=== PATIENT | female | born 1940 | race Caucasian/White ===

== ENCOUNTER 2018-01-16 08:30 | Emergency (ER) | payer MEDICARE, SELFPAY ==
[2018-01-16 08:31] VITALS: BP 157/85; PULSE 99; RESP 15; TEMP 36.4; BMI 29.0
--- NOTE | 2018-01-16 08:49 | EKG12_ITS ---
Test Reason : UPPER EXTREMETIY Blood Pressure : / mmHG Vent. Rate : 069 BPM Atrial Rate : 069 BPM P-R Int : 150 ms QRS Dur : 086 ms QT Int : 392 ms P-R-T Axes : 060 -27 031 degrees QTc Int : 420 ms Normal sinus rhythm Normal ECG Confirmed by ROBBY GASTELUM ([id number]), science editor MISHA GOLDMAN ([id number]) on 01/20/2018 4:03:43 PM Referred By: ELEAZAR Confirmed By:ROBBY GASTELUM
--- NOTE | 2018-01-16 08:49 | RAD_ITS ---
STUDY: X-RAY - LEFT HUMERUS REASON FOR EXAM: Female, 77 years old. Chest pain and left arm pain. No known injury. TECHNIQUE: 2 view(s) of the humerus. COMPARISON: None. FINDINGS: Alignment is anatomic. There is no acute fracture lucency or cortical step-off. There is no periostitis or periosteal reaction. There is no plain film evident soft tissue mass. There is mild, multifocal osteoarthritis. Mineralization otherwise appears unremarkable for age. RAD/Humerus min 2 Views IMPRESSION: There is no plain film evident acute osseous abnormality. Mild multifocal osteoarthritis. Electronically Signed: Cb Monson MD at 9:48 EDT , Service support ,
--- NOTE | 2018-01-16 08:49 | RAD_ITS ---
STUDY: X-RAY CHEST REASON FOR EXAM: Female, 77 years old. Chest pain and left arm pain. No known injury. TECHNIQUE: Frontal and lateral views of the chest. COMPARISON: None. FINDINGS: The lungs are clear and expanded. There is no demonstrated pleural abnormality. Normal size heart. Normal mediastinum and arun. Normal visualized pulmonary arteries. Normal visualized aortic arch and descending thoracic aorta. No significant degenerative change. No acute osseous abnormality. The patient is status post thoracolumbar fusion with pedicle screws and posterior rods. This fusion is only partially imaged on this chest exam. Normal visualized ribs, clavicles, and shoulders. There is no demonstrated abnormality of the visualized soft tissue structures of the upper abdomen. RAD/Chest PA and Lateral IMPRESSION: There is no radiographically evident acute cardiopulmonary disease. Electronically Signed: Cb Monson MD at 9:47 EDT , Service support ,
[2018-01-16 09:43] LABS: Absolute Lymphocyte Count 1.06 X10^3/ul (0.83-4.51); Absolute Neutrophil Count 4.3 X10^3/uL (2.0-7.7); Basophil# 0.03 X10^3/uL; Basophil% 0.5 % (0-1); Eosinophil# 0.04 X10^3/uL; Eosinophils% 0.7 % (0-5); Hemoglobin 14.1 g/dl (12.0-15.0); Lymphocyte # 1.06 X10^3/ul (4.0); Lymphocyte % 18.3 % (19-41); Mean Corp Hgb Conc 32.8 g/gl (32-36); Mean Corpuscular Hgb 29.7 pg (27.0-32.0); Mean Corpuscular Volume 90.5 fL (81-99); Mean Platelet Vol. 9.9 fl (6.2-12.0); Monocyte# 0.38 X10^3/uL; Monocyte% 6.6 % (0-10); Neutrophil # 4.29 X10^3/uL (2.7-7.7); Neutrophil % 73.9 % (47-70); Platelet Count 256 K/mm3 (150-450); RBC Distribution Width CV 14.6 % (11.6-14.6); RBC Distribution Width SD 47.9 fl (35.1-43.9); Red Blood Count 4.75 M/mm3 (4.2-5.4); White Blood Count 5.8 K/mm3 (4.4-11.0)
[2018-01-16 09:44] LABS: POSITIVE COUNT NO; POSITIVE DIFFERENTIAL NO; POSITIVE MORPHOLOGY NO
[2018-01-16 09:46] LABS: Anion Gap 4 (5-15); BUN 22 mg/dL (7-18); BUN/Creat Ratio 23.9 RATIO (10-20); Calcium,Total 9.1 mg/dL (8.5-10.1); Chloride 106 mmol/L (98-107); Creatinine, Serum 0.92 mg/dL (0.55-1.02); EST Glomerular Filtration Rate 63 mL/min (>60); Est Glom Filt Rate - Afr Amer 76 mL/min (>60); Estimated Creatinine Clearance 39.86 ml/min; Glucose 101 mg/dL (74-106); Potassium 3.5 mmol/L (3.5-5.1); Sodium Level 141 mmol/L (136-145)
--- NOTE | 2018-01-16 10:05 | ED.DCSUM_ITS ---
- ER Visit Summary Date of Service: 01/16/18 Chief Complaint: Left arm pain History of Present Illness: The patient is a 77 F who complains of left arm pain. This is been constant for 2 days. When asked to describe the characteristics as sharp dull or aching she stated all of the above. She currently rates her pain is 8 out of 10. It is worsened slightly by palpation and movement. She has had relief with aspirin. She denies any paresthesias weakness or loss of function. No history of fall or injury. She denies any chest pain shortness of breath nausea vomiting fevers or chills. Physical Examination: Afebrile vitals are normal No distress Heart regular rate and rhythm Lungs are clear Abdomen soft Patient has some mild reproducible tenderness over the lateral left upper arm this is also somewhat reproduced with movement I do not appreciate any obvious abnormality on inspection I do not appreciate any rash or bruising no deformity Easily palpable radial pulses No extremity edema or erythema Test Results: EKG shows normal sinus rhythm at a rate of 69. CBC BMP troponin unremarkable. Chest x-ray shows no acute process. Humerus x-ray shows mild multifocal arthritis otherwise unremarkable. Emergency Department Course and Treatment: Patient resting comfortably. Clinical suspicion for this being related to a cardiac etiology is very low however this is her concern and she is anxious about this. Her workup for this is unremarkable with a normal EKG and negative cardiac enzymes with 2 days of left arm pain and she does not have associated chest pain or shortness of breath. She does have some reproducible component to her pain. She was advised to continue anti-inflammatories and follow-up with her primary care physician. Treatment Plan: [] Disposition: Discharge Impression: Left arm pain This note was generated with [employer] dictation software. It may contain incorrect words, spelling, and punctuation that were not noted in review of the chart prior to signing ED Disposition - Plan for ED Patient: Chief Complaint: Upper Extremity Injury Referrals: Jillian Canada DO [Primary Care Provider] -
--- NOTE | 2018-01-16 10:05 | ED.DEP ---
ED Disposition - Plan for ED Patient: Chief Complaint: Upper Extremity Injury Instructions: ED Muscle Aching Referrals: Jillian Canada DO [Primary Care Provider] -
[2018-01-16 10:24] VITALS: BP 138/72; PULSE 71; RESP 18; O2SAT 98
== END 2018-01-16 10:25 | disposition home or self-care (01) ==
LOC: ED 09:15
PROVIDERS: Emergency Provider Emergency Medicine; Family Provider Internal Medicine; PCP Internal Medicine
DX: M79.602 Pain in left arm (principal); M19.012 Primary osteoarthritis, left shoulder; Z87.19 Personal history of other diseases of the digestive system
CPT/HCPCS: 71046; 73060; 80048; 84484; 85025; 93005; 99284; A4216

== ENCOUNTER → 2018-06-23 10:06 | Outpatient (CLI) | payer MEDICARE, SELFPAY ==
--- NOTE | 2018-06-23 10:08 | RAD_ITS ---
STUDY: X-RAY - PELVIS AND RIGHT HIP REASON FOR EXAM: Female, 77 years old. Hip pain. TECHNIQUE: Radiological exam, hip, unilateral, with pelvis when performed; 2 or 3 views. COMPARISON: None. FINDINGS: There is a non-specific bowel gas pattern. Radiopaque suture line at the base of the cecum consistent with prior appendectomy. There are multiple calcified phleboliths. There are multilevel degenerative changes of the visualized lumbar spine. Patient has undergone prior posterior spinal fusion with bilateral transpedicular screws L2-L4 connected on either side to longitudinal metal rods, as well as osseous fusion of the posterior elements L2-S1. There is mild narrowing and cortical sclerosis of the lateral sacroiliac joints, suggesting degenerative osteoarthritic changes. Normal visualized iliac wings and sacrum. Normal bilateral superior and inferior pubic rami. There are mild degenerative changes of the pubic symphysis with articular narrowing and sclerosis. Normal bilateral ischial tuberosities. There are osteoarthritic changes of the femoral head with marginal osteophyte formation. Cortical spurring also seen along the greater trochanter. There is osteoarthritic spur formation of the acetabular rim. There is mild articular joint space narrowing of the hip. There is no demonstrated acute fracture or osseous destructive lesion. RAD/HIP, UNI W/ Pelvis 2-3 Views IMPRESSION: 1. Degenerative changes of the lumbar spine, pelvis, and right hip, as described. 2. No acute fracture or osseous destructive lesion of the right hip. 3. Prior posterior fusion of the lumbar spine, with metal hardware noted L2-L4. Electronically Signed: Ernesto Dallas MD at 19:54 EDT , Service support ,
== END ==
PROVIDERS: Family Provider Internal Medicine; PCP Internal Medicine; Referring Provider Nurse Practitioner; Visit Provider Nurse Practitioner
DX: M25.551 Pain in right hip (principal)
CPT/HCPCS: 73502; 97161

== ENCOUNTER 2018-07-15 12:00 | Outpatient (RCR) | payer MEDICARE, SELFPAY ==
--- NOTE | 2018-06-23 15:31 | HP.PTEVAL ---
Patient's Visit Information DUANE EDUARDO is a 77 year old F referred to Physical Therapy by Noemy Benson with a diagnosis of Hip pain. Date of Evaluation: 06/23/18 Physical Therapist: Veda Allan - Visit Plan Frequency: 2x /Week Duration: 4 Weeks Plan: 2X/ week for 4 weeks for nerve root stretches, hip and LE strengthening, gait training, stretching with HEP and modalities PRN - Subjective Subjective: Pt reports that she was 39 and she had L234 fused and in June 3 years ago had rods and screws place in back. Her R hip has been bothering her and now waking her up every hour. She goes from the couch to the bed. She can not sleep on the R side. She sleeps with a pillow bwtween her knees. It hurts all the time. It gradually came on but now Advil wont even help it. She had an x-ray of the hip and back today. Every now and then she has some numbness along the lateral side of her thigh. No weakness on R side to speak of. Stairs: hurts going up and down stairs. Sit to stand: able without using her arms. Up until the last 2 weeks she could move really well. - Pain R hip pain Pain Intensity (Out of 10): 10 - Objective Gait: normal gait pattern. LE MMT: R hip flex 3-/5 and L 4-/5, R hip abd 3-/4 and L 4-/5, R hip extension 2-/5 and L 3-/5, B leg extension 4/5, B knee flexion 4-/5. +R nerve root stretch for pain (+SLUMP TEST R). Pt has some increase pain with heel and toe walking. Pt has tight HS B and Has + SLR test B for pain on the R hip. Pt has really tight and painful R piriformis - Goals Goal 1:: I HEP Goal Time Frame: 2-4 Weeks Goal 2:: Decrease R hip pain to 2/10 with ADL's Goal Time Frame: 2-4 Weeks Goal 3:: Increase R hip strength by 1/2 muscle grade (At time of eval: LE MMT: R hip flex 3-/5 and L 4-/5, R hip abd 3-/4 and L 4-/5, R hip extension 2-/5 and L 3-/5, B leg extension 4/5, B knee flexion 4-/5) Goal Time Frame: 4-6 Weeks Goal 4:: Abolish pain with LAQ nerve root stretch Goal Time Frame: 2-4 Weeks - Rehabilitation Potential Rehabilitation Potential: Good - Anticipated Interventions Patient/Client Instruction: Educate patient on: Condition, Plan of Care For the Purpose of:: To decrease pain, To increase ROM, To improve nutrient delivery to tissue, To improve muscle performance and motor function, To improve ability to perform ADL's, To increase tolerance to activity/condition/position, To improve performance and independence with ADL's, To improve health of tissue, To decrease soft tissue restriction, To increase flexibility/ROM Therapeutic Exercise to Include: Strength training, Postural training, Flexibilty training, Passive ROM, Active ROM, Dynamic Lumbar Stabilization For the Purpose of:: To decrease pain, To decrease swelling/inflammation, To increase ROM, To improve nutrient delivery to tissue, To improve muscle performance and motor function, To improve ability to perform ADL's, To increase tolerance to activity/condition/position, To improve performance and independence with ADL's, To improve gait and locomotor functions, To improve health of tissue, To decrease soft tissue restriction, To increase flexibility/ROM IF ES: Yes Cryotherapy (ice pack, ice massage): Yes Thermo therapy (hot pack): Yes Ultrasound (thermal/non thermal): Yes For the Purpose of:: To decrease pain, To decrease swelling/inflammation, To improve nutrient delivery to tissue Thank you for the opportunity to evaluate your patient. For Medicare and Medicare HMO plans, please review the plan of care and approve it. It will need to be FAXED BACK to us at [phone] for Medicare purposes. Please let me know if there are questions or concerns regarding this plan of care. Physician Signature: Date:
--- NOTE | 2018-07-15 13:01 | HP.PTDCSUM_ITS ---
HP - PT D/C Summary It has been my pleasure to treat DUANE EDUARDO under orders from Noemy Benson NP, for the diagnosis of Hip pain for a total of 6 visit(s). Discharge Date: 07/15/18 Please see the following information for a summary of their discharge status. - Subjective Subjective: Pt reports that her hip is bothering her today and she started to add the piriformis stretches back in at home. She reports that she has started to make it a habit to exercise at home now but would like to join [employer]. - Pain R hip pain Pain Intensity (Out of 10): 0 - Overall Improvement % Improvement: 50 - Objective Objective/Function: No pain with nerce root stretch. Pt is I HEP. LE MMT: pt is still working on improving this.... - Goals Goal 1:: I HEP Goal Progress: Goal Met Goal 2:: Decrease R hip pain to 2/10 with ADL's Goal Progress: Goal Met Goal 3:: Increase R hip strength by 1/2 muscle grade (At time of eval: LE MMT: R hip flex 3-/5 and L 4-/5, R hip abd 3-/4 and L 4-/5, R hip extension 2-/5 and L 3-/5, B leg extension 4/5, B knee flexion 4-/5) Goal Progress: Progressing Goal 4:: Abolish pain with LAQ nerve root stretch Goal Progress: Goal Met - Plan Plan: Pt will start a [employer] sne[employer] plan and will also continue with her exercises at home. She will be discharged at this time. - D/C Information Discharge Comments: DC PT to [facility] If there are questions or concerns regarding this patient's physical therapy, please feel free to call me at [phone]. Thank you for the referral of this patient. Sincerely, Veda Allan
== END 2018-07-15 18:16 | disposition home or self-care (01) ==
LOC: PT 12:00
PROVIDERS: Family Provider Internal Medicine; PCP Internal Medicine; Referring Provider Nurse Practitioner; Visit Provider Nurse Practitioner
DX: M25.559 Pain in unspecified hip (principal)
CPT/HCPCS: 97110; 97161; 97530

== ENCOUNTER → 2018-09-24 09:28 | Outpatient (CLI) | payer MEDICARE, SELFPAY ==
--- NOTE | 2018-09-24 09:45 | RAD_ITS ---
STUDY: X-RAY - RIGHT KNEE REASON FOR EXAM: Female, 78 years old. TECHNIQUE: 4 view(s) of the knee. COMPARISON: March 02, 2017 FINDINGS: Moderate osteoarthritis of the knee demonstrated by narrowing of the medial compartment and spurs from the tibial and femoral condyles and also from the margins of the patella. There are no acute fractures and no knee joint effusion. The quadriceps and patellar tendons are normal.. RAD/Knee 4 or More Views IMPRESSION: Moderate osteoarthritis of the right knee. No fracture Electronically Signed: Agapito Ruiz MD at 7:24 EST Tel , Service support ,
== END ==
PROVIDERS: Family Provider Internal Medicine; PCP Nurse Practitioner Gerontology; Visit Provider Nurse Practitioner Gerontology
DX: M25.561 Pain in right knee (principal)
CPT/HCPCS: 73564

== ENCOUNTER → 2018-12-02 08:46 | Outpatient (CLI) | payer MEDICARE, SELFPAY ==
[2018-12-02 10:34] LABS: EST Glomerular Filtration Rate 64 mL/min (>60); Est Glom Filt Rate - Afr Amer 78 mL/min (>60)
== END ==
PROVIDERS: Family Provider Internal Medicine; PCP Internal Medicine; Referring Provider Physician Assistant; Visit Provider Physician Assistant
DX: M54.16 Radiculopathy, lumbar region (principal)
CPT/HCPCS: 36415; 82565

== ENCOUNTER 2019-06-13 08:56 | Emergency (ER) | payer MEDICARE, SELFPAY ==
[2019-06-13 08:56] VITALS: BP 161/77; PULSE 70; RESP 16; TEMP 36.6; O2SAT 98; BMI 28.3
[2019-06-13 09:12] VITALS: BP 161/77; PULSE 70; RESP 16; TEMP 36.6; O2SAT 98
--- NOTE | 2019-06-13 09:19 | EKG12_ITS ---
Test Reason : Blood Pressure : / mmHG Vent. Rate : 065 BPM Atrial Rate : 065 BPM P-R Int : 156 ms QRS Dur : 086 ms QT Int : 402 ms P-R-T Axes : 034 -26 032 degrees QTc Int : 418 ms Normal sinus rhythm Normal ECG Confirmed by ANA CRAFT, PORTER ([id number]), film and video editor AILEEN LANGE ([id number]) on 06/14/2019 9:05:34 AM Referred By: AMADOU Confirmed By:PORTER PEREZ MD
--- NOTE | 2019-06-13 09:25 | ED.VIS.GEN ---
History of Present Illness Informant: Patient, Family Onset: Weeks - 1 Context: Gradual Onset Timing: Waxes and wanes Current Severity: Moderate Maximum Severity: Moderate Worsened by: FOOD Relieved by: GLUTEN Narrative: Nausea and loose stool Prior similar symptoms: Yes Recent Illness/Hospitalization: No <Suma Dejesus - Last Filed: 06/13/19 11:06> <Aga Charles - Last Filed: 06/13/19 16:04> Chief Complaint: Abd Pain Past Medical History Prior records reviewed: Yes Surgical History: appendectomy, - - SPINE Lives: Spouse/ Significant Other Smoking Status: Never smoker Alcohol: None Drugs: None - Family History Maternal Family History: Reports: - - natural Sibling Family History: Reports: - - sister with a tumor in her back. <Suma Dejesus - Last Filed: 06/13/19 11:06> <Aga Charles - Last Filed: 06/13/19 16:04> - Allergies and Home Meds Allergies/Adverse Reactions: Allergies gluten Allergy (Verified 06/13/19 08:56) Diarrhea Primary Care Physician: Jillian Canada DO [Primary Care Provider] - Review of Systems All systems negative except as indicated General: Denies: Chills, Fever Eyes: Denies: Visual changes - left, Blurred vision - left ENT: Denies: Rhinorrhea, Sore throat Cardiovascular: Denies: Chest pain, Palpitations, Heart racing Respiratory: Denies: Dyspnea, Cough, Sputum Gastrointestinal: Reports: Abdominal pain, Nausea, Diarrhea. Denies: Vomiting, Constipation, Melena, Hematochezia Genitourinary: Reports: Frequency. Denies: Dysuria, Hematuria Musculoskeletal: Reports: Back pain - between shoulder blades. Denies: Myalgias Skin: Denies: Rash Neurological: Reports: Headache. Denies: Weakness, Parasthesia - mild headache Endocrine: Reports: Polyuria <Suma Dejesus - Last Filed: 06/13/19 11:06> Physical Exam Vital Signs/Narrative: Vital Signs Temp Pulse Resp BP Pulse Ox 06/13/19 09:12 97.9 F 70 16 161/77 H 98 06/13/19 08:56 97.9 F 70 16 161/77 H 98 Inital Vital Signs reviewed: Yes General: Well nourished, Well developed Head: Normocephalic, Atraumatic Eyes: Perrl, EOMI. Negative for: Pale conjunctiva ENT: Moist mucous membranes, No rhinorrhea Cardiovascular: Regular rate, Regular rhythm, No murmurs Respiratory: No distress, CTA bilaterally, Chest nontender Abdomen: Soft, Tender. Negative for: Guarding, Rebound tenderness, Pulsatile mass, Ventral hernia, Inguinal hernia, Umbilical hernia, Rovsig's sign, Mora's sign Back: Nontender, Normal Inspection - Well-healed surgical scar. Negative for: CVA tenderness Extremities: Nontender, No edema. Negative for: Tenderness Skin: Normal color, No rash Neurological: Alert, Oriented x3 Psychological: Normal affect, Normal Mood <Suma Dejesus - Last Filed: 06/13/19 11:06> Diagnostic/Tx/Re-eval - Rhythm Strip Ectopy: None - EKG Initial EKG Interpretation: Sinus Rhythm, No Acute Injury Pattern, - - Normal sinus rhythm Ventricular rate 65 FL interval 156 QRS duration 86 QT/QTc 402/4 1 8 No acute STEMI or ectopy - Medical Decision Making Clear was hydrated with IV fluids and laboratory tests were evaluated. She had no signs of infection or pancreatitis or abnormal liver function tests are abnormal kidney function. Her urinalysis was unremarkable. She remained stable and her pain was gradually improving. She was given Pepcid for discomfort. Her abdomen remains soft without guarding or rebound tenderness. She had minimal epigastric tenderness. There is no Mora sign. She relayed to me that she ran out of her enzymes that she usually takes before eating about a week ago. This may have also contributed to her abdominal discomfort as well as eating gluten. She is comfortable discharge home. She remained hemodynamically stable and nontoxic in appearance. She understands return for worsening symptoms or fever. She was discharged in stable condition. <Suma Dejesus - Last Filed: 06/13/19 11:06> - Medical Decision Making I independently evaluated the patient. 78-year-old female presents with abdominal pain. She has a history of gluten sensitivity and pancreatitis. She states her symptoms are starting to improve but she was concerned that she may need her pancreas checked. Lab work is unremarkable. On reevaluation, she is feeling improved. She is advised to follow-up with her primary care physician. Advised return to the ED for worsening complaints. <Aga Charles - Last Filed: 06/13/19 16:04> ED Disposition <Suma Dejesus - Last Filed: 06/13/19 11:06> <Aga Charles - Last Filed: 06/13/19 16:04> - Plan for ED Patient: Disposition: Home or Assisted Living Diagnosis: Gluten enteropathy Instructions: ABDOMINAL PAIN, Unknown Cause, (Female) Referrals: Jillian Canada DO [Primary Care Provider] -
[2019-06-13 09:34] LABS: Bacteria 0 SEEN /hpf (None Seen); Mucous, Urine 0 SEEN /hpf (<or=2+); Red Blood Cells-Urine 0 SEEN /hpf (0-5); White Blood Cells 0 SEEN /hpf (0-5)
[2019-06-13] MEDS: 0.9% Normal Saline 1,000 ML 500 ML IV (09:34)
[2019-06-13 09:36] LABS: Absolute Lymphocyte Count 1.67 X10^3/uL (0.83-4.51); Absolute Neutrophil Count 8.2 X10^3/uL (2.0-7.7); Basophil# 0.06 X10^3/uL; Basophil% 0.5 % (0-1); Eosinophil# 0.21 X10^3/uL; Eosinophils% 1.9 % (0-5); Hematocrit 45.3 % (37-47); Hemoglobin 14.3 g/dL (12.0-15.0); Lymphocyte # 1.67 X10^3/ul (4.0); Lymphocyte % 15.1 % (19-41); Mean Corp Hgb Conc 31.6 g/dL (32-36); Mean Corpuscular Hgb 28.8 pg (27.0-32.0); Mean Corpuscular Volume 91.3 fL (81-99); Mean Platelet Vol. 9.8 fl (6.2-12.0); Monocyte# 0.83 X10^3/uL; Monocyte% 7.5 % (0-10); NRBC Flagged by Analyzer 0 % (0-5); Neutrophil # 8.23 X10^3/uL (2.7-7.7); Neutrophil % 74.7 % (47-70); Platelet Count 309 K/mm3 (150-450); RBC Distribution Width CV 14.2 % (11.6-14.6); RBC Distribution Width SD 47.8 fl (35.1-43.9); Red Blood Count 4.96 M/mm3 (4.2-5.4)
[2019-06-13 09:37] LABS: Color, Urine Yellow (Yellow); Glucose, Dipstick Normal (Normal); Ketone-Dipstick Negative (Negative); Leukocyte Esterase-Dipstick 25 /ul (Negative); Nitrite-Dipstick Negative (Negative); Occult Blood-Urine Negative /ul (Negative); Protein-Dipstick Negative (Negative); Urine Bilirubin Dipstick Negative (Negative); Urine Clarity Clear (Clear); Urine Urobilinogen Normal (Normal); Urine pH 6.5 (5.0 - 8.0)
[2019-06-13 09:43] LABS: Squamous Epithelial Cells - UA 0-5 SEEN /hpf (5-10)
[2019-06-13 09:44] LABS: ALB/GLOB Ratio 1.2 RATIO (0.9-2.4); AST(SGOT) 18 U/L (15-37); Alanine Aminotransfer ALT/SGPT 22 U/L (13-56); Albumin, Serum 4.2 g/dL (3.2-5.0); Alkaline Phosphatase 105 U/L (45-117); Anion Gap 2 (5-15); BUN 25 mg/dL (7-18); BUN/Creat Ratio 25.7 RATIO (10-20); Calcium,Total 9.6 mg/dL (8.5-10.1); Chloride 104 mmol/L (98-107); Creatinine, Serum 0.97 mg/dL (0.55-1.02); EST Glomerular Filtration Rate 59 mL/min (>60); Est Glom Filt Rate - Afr Amer 71 mL/min (>60); Estimated Creatinine Clearance 37.19 ml/min; Globulin 3.6 g/dL (2.2-4.2); Glucose 99 mg/dL (74-106); Lipase 167 U/L (73-393); Potassium 3.8 mmol/L (3.5-5.1); Protein, Total 7.8 g/dL (6.4-8.2); Sodium Level 138 mmol/L (136-145)
[2019-06-13 10:00] VITALS: BP 158/77; PULSE 76; RESP 18; TEMP 37.1; O2SAT 99
[2019-06-13 11:00] VITALS: BP 148/72; PULSE 78; RESP 18; TEMP 37.1; O2SAT 99
[2019-06-13 11:22] VITALS: BP 153/72; PULSE 65; RESP 16; O2SAT 98
--- NOTE | 2019-06-13 11:22 | ED.RN ---
IV DC'ED, CATHETER INTACT, SMALL GAUZE DRESSING PLACED. DISCHARGE INSTRUCTIONS GIVEN TO AND REVIEWED WITH PATIENT, PATIENT DENIES QUESTIONS OR CONCERNS AND VOICES UNDERSTANDING OF DISCHARGE INSTRUCTIONS. PT AMBULATES OUT OF ROOM WITHOUT DIFFICULTY.
== END 2019-06-13 11:23 | disposition home or self-care (01) ==
PROVIDERS: Emergency Medicine; Emergency Provider Nurse Practitioner; Family Provider Internal Medicine; PCP Internal Medicine
DX: K90.41 Non-celiac gluten sensitivity (principal)
CPT/HCPCS: 80053; 81001; 83690; 84484; 85025; 93005; 96361; 96374; 99283; J7030; A4216; J3490

== ENCOUNTER 2019-11-19 17:12 | Emergency (ER) | payer MEDICARE, SELFPAY ==
[2019-11-19 17:13] VITALS: BP 162/86; PULSE 80; RESP 16; TEMP 36.6; O2SAT 96; BMI 29.4
--- NOTE | 2019-11-19 17:42 | ED.DCSUM_ITS ---
- ER Visit Summary Date of Service: 11/19/19 Chief Complaint: [Abdominal pain] History of Present Illness: The patient is a 79 F [presents to the emergency department with complaint of abdominal pain that started last evening around 11:30 PM. Patient states she had a hard time sleeping secondary to the pain. The pain is continuous and she describes it as mild to moderate does not anything for pain at this time. She denies any nausea or vomiting associated with it. Patient believes it is pancreatitis because she has had it before and feels similar. The pain does not radiate to her back. Patient states she ate a bourbon burger last evening. Patient denies any blood in her stool or black tarry stool. She has had 2 loose stools today. Patient also with prior history of diverticulitis. She has had prior appendectomy. Patient has had 3 back surgeries in the past. Patient denies any fevers or urinary symptoms.] Patient denies any chest pain or shortness of breath. Physical Examination: [HEENT-PERRLA, EOMI. Cranial nerves II through XII grossly intact. TMs clear. Mucous membranes moist. No adenopathy. Cardiovascular-regular rate and rhythm without murmur or ectopy Lungs-clear to auscultation, chest wall stable without crepitus or subcu emphysema Abdomen-normoactive bowel sounds, soft. Patient has tenderness over the epigastric and left upper quadrant regions. She has a mild guarding. There is no rebound, rigidity, or peritoneal signs. Extremities-intact ?4, normal range of motion, normal pulses, atraumatic] Test Results: [CBC with differential showing a 6.3, hemoglobin 14.6, hematocrit 44, platelets 277. Chemistries were unremarkable. LFTs were normal. Lipase was 224. Urinalysis was normal. CT scan of the abdomen pelvis without contrast showed essentially nothing acute. She had a large solitary gallstone in [facility] location a prior study. She had some sludge in the gallbladder noted. There is no dilatation of the bile ducts.] Emergency Department Course and Treatment: [Patient did not want thing for pain on arrival she had an IV line established. Given normal saline.] Treatment Plan: [Patient does not anything for pain for home. I advised her on a clear liquid diet for the next 24 hours. Patient advised to return if worsening pain, fever, vomiting, or condition should worsen anyway. Patient advised to follow-up with primary care physician within next 3 to 5 days.] Disposition: [Discharged home in stable condition] Impression: [Abdominal pain-etiology uncertain] This note was generated with [employer] dictation software. It may contain incorrect words, spelling, and punctuation that were not noted in review of the chart prior to signing ED Disposition - Plan for ED Patient: Referrals: Jillian Canada DO [Primary Care Provider] -
[2019-11-19] MEDS: 0.9% Normal Saline 1,000 ML 125 ML IV (17:44)
[2019-11-19 17:49] LABS: Absolute Lymphocyte Count 1.46 X10^3/uL (0.83-4.51); Absolute Neutrophil Count 4.1 X10^3/uL (2.0-7.7); Basophil# 0.08 X10^3/uL; Basophil% 1.3 % (0-1); Eosinophil# 0.13 X10^3/uL; Eosinophils% 2.1 % (0-5); Hematocrit 44.3 % (37-47); Hemoglobin 14.6 g/dL (12.0-15.0); Lymphocyte # 1.46 X10^3/ul (4.0); Mean Corpuscular Hgb 29.8 pg (27.0-32.0); Mean Corpuscular Volume 90.4 fL (81-99); Mean Platelet Vol. 9.5 fl (6.2-12.0); Monocyte% 9.5 % (0-10); NRBC Flagged by Analyzer 0 % (0-5); Neutrophil # 4.06 X10^3/uL (2.7-7.7); Neutrophil % 63.9 % (47-70); Platelet Count 277 K/mm3 (150-450); RBC Distribution Width CV 14.2 % (11.6-14.6); RBC Distribution Width SD 47.3 fl (35.1-43.9); White Blood Count 6.3 K/mm3 (4.4-11.0)
[2019-11-19 18:03] LABS: ALB/GLOB Ratio 1.1 RATIO (0.9-2.4); AST(SGOT) 19 U/L (15-37); Alanine Aminotransfer ALT/SGPT 28 U/L (13-56); Alkaline Phosphatase 82 U/L (45-117); Anion Gap 5 (5-15); BUN 25 mg/dL (7-18); BUN/Creat Ratio 26.2 RATIO (10-20); Calcium,Total 9.9 mg/dL (8.5-10.1); Chloride 109 mmol/L (98-107); Creatinine, Serum 0.95 mg/dL (0.55-1.02); EST Glomerular Filtration Rate 60 mL/min (>60); Est Glom Filt Rate - Afr Amer 72 mL/min (>60); Estimated Creatinine Clearance 37.36 ml/min; Globulin 3.5 g/dL (2.2-4.2); Glucose 98 mg/dL (74-106); Lipase 224 U/L (73-393); Potassium 3.6 mmol/L (3.5-5.1); Protein, Total 7.5 g/dL (6.4-8.2); Sodium Level 143 mmol/L (136-145)
[2019-11-19 18:13] LABS: Lactic Acid 0.9 mmol/L (0.4-1.9)
--- NOTE | 2019-11-19 18:22 | CT_ITS ---
STUDY: CT ABDOMEN AND PELVIS WITHOUT CONTRAST REASON FOR EXAM: Female, 79 years old. PT STATED UPPER ABDOM PAIN, WORSE AFTER EATING, HX OF APPY AND BACK SX RADIATION DOSAGE (If Supplied By Facility): CTDIvol = ( 10.43 ) mGy, DLP = ( 479.45 ) mGycm TECHNIQUE: Transaxial images were obtained from the dome of the diaphragm to the symphysis pubis without oral contrast, and without intravenous contrast. Sagittal and coronal images were reconstructed. Individualized dose optimization techniques were used for this CT. COMPARISON: Prior abdomen and pelvic CT exam of October 06, 2016 FINDINGS: Stable bibasilar chronic changes. The visualized portions of the heart are within normal limits. Normal liver. 1 large laminated gallstone currently situated in the gallbladder neck. The gallbladder appears normally distended as on the similar exam the bile appears generally dense. Grossly negative for wall thickening or pericholecystic fluid. Nondistended small bowel. Normal spleen. Normal pancreas. Normal bilateral adrenal glands. Stable cysts in the lower pole of the right kidney. Otherwise normal right kidney without hydronephrosis or stones. Normal left kidney. Normal visualized stomach. Normal small intestine. Nondistended colon. Diverticulosis of the colon without evidence of acute diverticulitis. There is non-visualization of the appendix. There is diffuse atherosclerotic calcification of the abdominal aorta, without a demonstrated aneurysm. Normal inferior vena cava. Normal retroperitoneum. Nondistended urinary bladder. Negative for pelvic mass or free fluid of the pelvis. Normal abdominal wall. Status post posterior spinal fusion of L1-L4 without without change in spinal alignment. Fusion hardware has been added at the L1 level since the prior exam. CT/Abdomen/Pelvis without Cont IMPRESSION: A single large laminated gallstone remains in the gallbladder neck similar in position to the prior examination. The remainder of the gallbladder is of average distention. There is fairly dense bile consistent with sludge. Nondistended intrahepatic bile ducts and common bile duct. Unremarkable liver, spleen and pancreas. No acute renal findings. Negative for hydronephrosis, renal or ureteral stones. Stable renal cysts bilaterally. Nondistended urinary bladder. No acute bowel findings. Negative for evidence of obstruction, perforation or inflammatory bowel changes. Diverticulosis without acute diverticulitis. Electronically Signed: Carmita Her MD at 19:07 EST , Service support ,
[2019-11-19 18:42] LABS: Bacteria 0 SEEN /hpf (None Seen); Mucous, Urine 0 SEEN /hpf (<or=2+); Red Blood Cells-Urine 0 SEEN /hpf (0-5); White Blood Cells 0 SEEN /hpf (0-5)
[2019-11-19 18:45] LABS: Color, Urine Yellow (Yellow); Glucose, Dipstick Normal (Normal); Ketone-Dipstick 50 mg/dl (Negative); Leukocyte Esterase-Dipstick Negative /ul (Negative); Nitrite-Dipstick Negative (Negative); Occult Blood-Urine Negative /ul (Negative); Protein-Dipstick Negative (Negative); Specific Gravity, Urine 1.025 (1.002-1.030); Urine Bilirubin Dipstick Negative (Negative); Urine Clarity Clear (Clear); Urine Urobilinogen Normal (Normal)
[2019-11-19 18:57] LABS: Squamous Epithelial Cells - UA 0-5 SEEN /hpf (5-10)
--- NOTE | 2019-11-19 19:20 | ED.DEP ---
ED Disposition - Plan for ED Patient: Instructions: ABDOMINAL PAIN, Unknown Cause, (Female) Referrals: Jillian Canada DO [Primary Care Provider] - 3-5 Days
[2019-11-19 19:30] VITALS: BP 154/68; PULSE 71; RESP 17; O2SAT 97
== END 2019-11-19 19:32 | disposition home or self-care (01) ==
PROVIDERS: Emergency Provider Emergency Medicine; PCP Internal Medicine
DX: R10.9 Unspecified abdominal pain (principal); K80.20 Calculus of gallbladder without cholecystitis without obstruction; R51 Headache; Z87.19 Personal history of other diseases of the digestive system
CPT/HCPCS: 74176; 80053; 81001; 83605; 83690; 85025; 96360; 96361; 99283; J7030; A4216

== ENCOUNTER 2020-08-02 08:26 | Emergency (ER) | payer MEDICARE, SELFPAY ==
[2020-08-02 08:26] VITALS: BP 157/96; PULSE 86; RESP 17; TEMP 36.1; O2SAT 96; BMI 30.2
--- NOTE | 2020-08-02 08:57 | ED.VISSUMM ---
- ER Visit Summary Date of Service: 08/02/20 Chief Complaint: [Pain and swelling to right arm] History of Present Illness: The patient is a 79 F [presents to the emergency department with discomfort in her right arm that started 3 days ago. Patient denies any direct trauma. Patient states that she was playing games on her cell phone and tablet and she thought it was may be tennis elbow related. Patient states the pain initially started in her elbow but now having a lot of discomfort into her right wrist. She denies any fevers. She does have remote history of gout and remembers drinking coronado juice to treat it years ago. Patient with remote history of pancreatitis and diverticulitis.] Physical Examination: [HEENT-PERRLA, EOMI. Cranial nerves II through XII grossly intact. TMs clear. Mucous membranes moist. No adenopathy. Cardiovascular-regular rate and rhythm without murmur or ectopy Lungs-clear to auscultation, chest wall stable without crepitus or subcu emphysema Abdomen-normoactive bowel sounds, soft, nontender, no rebound or rigidity, no peritoneal signs. Extremities-intact ?4, normal range of motion, normal pulses, atraumatic. Right upper extremity-patient does have some faint erythema to the lateral aspect of the right elbow with tenderness to palpation over the lateral aspect. Patient does have some faint erythema to the skin and some mild warmth noted. Patient also has soft tissue swelling and some faint erythema to the right wrist with painful range of motion. Neurovascular intact distally.] Test Results: [None indicated] Emergency Department Course and Treatment: [Patient was given a sling. She was started on prednisone. Patient started on Keflex as well. Patient given a dose of Jackson for pain.] Treatment Plan: [My suspicion for cellulitis is low however I will cover her with Keflex. I suspect likely a gouty arthropathy and she will be started on prednisone given Jackson for pain. 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 It may contain incorrect words, spelling, and punctuation that were not noted in review of the chart prior to signing ED Disposition - Plan for ED Patient: Referrals: Jillian Canada DO [Primary Care Provider] -
--- NOTE | 2020-08-02 08:59 | DCINST.ED_ITS ---
ED Disposition - Plan for ED Patient: Instructions: ED ARTHRITIS Gout Prescriptions: Prednisone [Deltasone] 20 mg PO BID #10 tab Prescription Printed Cephalexin [Keflex] 500 mg PO Q6 #40 cap Prescription Printed Hydrocodone Bitart/Apap 5-325 [[place] 5MG-325MG] 1 tab PO Q4H PRN PRN 2 Days #10 tab PRN Reason: Pain Prescription Printed Referrals: Jillian Canada DO [Primary Care Provider] -
[2020-08-02] MEDS: predniSONE 20 MG Tablet 40 MG PO (09:09)
[2020-08-02] MEDS: Cephalexin 250 MG Capsule 500 MG PO (09:09)
[2020-08-02] MEDS: HYDROcodone Bitartrate/Apap 5/325 Tablet PO (09:09)
== END 2020-08-02 09:17 | disposition home or self-care (01) ==
LOC: ED 08:58
PROVIDERS: Emergency Provider Emergency Medicine; PCP Internal Medicine
DX: M79.601 Pain in right arm (principal); M10.9 Gout, unspecified; Z87.19 Personal history of other diseases of the digestive system
CPT/HCPCS: 99284

== ENCOUNTER 2020-08-07 16:37 | Observation (INO) | payer MEDICARE, SELFPAY ==
[2020-08-07] VITALS (7 sets, daily range): BP systolic 145–216; BP diastolic 60–116; PULSE 64–100; RESP 15–18; TEMP 36.4–37.1; O2SAT 95–97; BMI 33.6; BMI 30.3; BMI 30.4
--- NOTE | 2020-08-07 17:06 | CT_ITS ---
STUDY: CT ABDOMEN AND PELVIS WITHOUT CONTRAST REASON FOR EXAM: Female, 80 years old. RT SIDE ABD PAIN W/ TENDERNESS, FELL INTO COUNTERTOP THIS AFTERNOON, PAIN 1 HOUR AFTER RADIATION DOSAGE (If Supplied By Facility): CTDIvol = ( 14.39 ) mGy, DLP = ( 656.21 ) mGycm TECHNIQUE: Transaxial images were obtained from the dome of the diaphragm to the symphysis pubis without oral contrast, and without intravenous contrast. Sagittal and coronal images were reconstructed. Individualized dose optimization techniques were used for this CT. COMPARISON: None. FINDINGS: There is minor atelectasis within the dependent portion lungs.. The visualized portions of the heart are within normal limits. Normal liver. There are 2 calcified gallstones without evidence for pericholecystic edema. Normal spleen. Normal pancreas. Normal bilateral adrenal glands. No evidence for renal obstruction. There is a simple cyst in each kidney. Normal visualized stomach. Mild nonspecific ileus. Diffuse diverticular disease of the colon without evidence for acute diverticulitis... Postsurgical changes status post appendectomy. Mild atherosclerotic changes of the aorta without evidence for aneurysm Normal inferior vena cava. Normal retroperitoneum. Normal urinary bladder. There is a large slightly hyperattenuated intramuscular mass within the right transverse rectus measuring approximately 10.3 x 9.4 x 6 cm consistent with hematoma.. Lumbar spine demonstrates degenerative change. Grade 1 spondylolisthesis at L3-4. Postsurgical changes status post multilevel laminectomy and posterior fusion spanning L1-L4. CT/Abdomen/Pelvis without Cont IMPRESSION: Large right-sided rectus sheath hematoma measuring approximately 10.3 x 9.4 x 6 cm Cholelithiasis without evidence for acute cholecystitis. Diverticular disease of the colon without evidence for acute diverticulitis. Other findings as above Electronically Signed: Aram Sherman MD at 18:06 EST , Service support ,
[2020-08-07] MEDS: Ondansetron 4 MG/2 ML Vial IV (17:14)
[2020-08-07] MEDS: Morphine 4 MG/ML Syringe IV ×2 (17:15→17:49)
[2020-08-07] MEDS: 0.9% Normal Saline 1,000 ML 125 ML IV (17:21)
[2020-08-07 17:38] LABS: Absolute Lymphocyte Count 1.76 X10^3/uL (0.83-4.51); Basophil# 0.02 X10^3/uL; Basophil% 0.2 % (0-1); Hematocrit 44.7 % (37-47); Hemoglobin 14.9 g/dL (12.0-15.0); Lymphocyte # 1.76 X10^3/ul (4.0); Lymphocyte % 15.1 % (19-41); Mean Corp Hgb Conc 33.3 g/dL (32-36); Mean Corpuscular Hgb 29.8 pg (27.0-32.0); Mean Corpuscular Volume 89.4 fL (81-99); Mean Platelet Vol. 9.5 fl (6.2-12.0); Monocyte# 0.85 X10^3/uL; Monocyte% 7.3 % (0-10); NRBC Flagged by Analyzer 0 % (0-5); Neutrophil # 8.95 X10^3/uL (2.7-7.7); Neutrophil % 76.5 % (47-70); Platelet Count 489 K/mm3 (150-450); RBC Distribution Width CV 14.2 % (11.6-14.6); RBC Distribution Width SD 46.1 fl (35.1-43.9); White Blood Count 11.7 K/mm3 (4.4-11.0)
[2020-08-07 17:53] LABS: Anion Gap 7 (5-15); BUN 26 mg/dL (7-18); Calcium,Total 9.6 mg/dL (8.5-10.1); Chloride 102 mmol/L (98-107); Creatinine, Serum 0.84 mg/dL (0.55-1.02); EST Glomerular Filtration Rate 69 mL/min (>60); Est Glom Filt Rate - Afr Amer 84 mL/min (>60); Estimated Creatinine Clearance 41.54 ml/min; Glucose 116 mg/dL (74-106); Potassium 3.5 mmol/L (3.5-5.1); Sodium Level 138 mmol/L (136-145)
[2020-08-07 18:25] LABS: International Normalized Ratio 0.9; Prothrombin Time (Protime)PT. 11.7 SECONDS (11.7-14.9)
[2020-08-07] MEDS: fentaNYL 100 MCG/2 ML Ampul 25 MCG IV ×2 (18:34→20:41)
--- NOTE | 2020-08-07 18:56 | ED.DCSUM_ITS ---
- ER Visit Summary Date of Service: 08/07/20 Chief Complaint: Abdominal pain History of Present Illness: The patient is a [address] Cheatham. She reports that approximately an hour ago she had the acute onset of pain in the right upper quadrant and a lump there. She describes it as sharp, stabbing pain is 10 on 10 severity. Nothing makes this better or worse. She denies any nausea, vomiting, or diarrhea. Her last bowel was today. No mono medic easy. No dysuria or frequency. Physical Examination: Vitals: 90.7, 216/116, 100, 17, 96% room air which not hypoxic afebrile. General: Well-nourished and well-developed. Head: Normocephalic atraumatic. Neck: Supple, no lymphadenopathy. No JVD. Nontender. Cardiovascular: Regular rate and rhythm. No murmurs. Respiratory: No respiratory distress. Clear to auscultation bilaterally. Abdominal: Soft, severe tenderness to palpation right upper quadrant with a palpable mass, nondistended, normal bowel sounds. No guarding, rebound, or peritoneal signs. Back: Nontender. Extremities: Nontender, no edema. Skin: Normal color, no rash. Neurologic: Alert and oriented ?3. Cranial nerves II through XII are intact. Normal strength and sensation. Psych: Normal affect. Test Results: CBC shows a white count 11.7 with an H&H of 14.9 and 44.7. Platelets 49. Segmented for 77, lymphocytes 15. Chem-7 shows a glucose 116 BUN of 26. Coags are normal. Clinical Impression(s) from Imaging Studies Abdomen/Pelvis CT 08/07/20 17:06 IMPRESSION: Large right-sided rectus sheath hematoma measuring approximately 10.3 x 9.4 x 6 cm Cholelithiasis without evidence for acute cholecystitis. Diverticular disease of the colon without evidence for acute diverticulitis. Other findings as above Electronically Signed: Aram Sherman MD at 18:06 EST , Service support , Abdomen/Pelvis CT 08/07/20 19:16 IMPRESSION: Persistent right transverse rectus sheath hematoma which appears to have decreased very slightly since previous study. No evidence for active bleeding at this time Other findings as above Electronically Signed: Aram Sherman MD at 19:53 EST , Service support , Emergency Department Course and Treatment: Patient was given a dose of morphine and Zofran IV. She had ice placed on the area as I thought this was a hernia. She then had manual reduction attempted without success. After the CT was obtained when the patient return to emergency department I asked if she had had any trauma. She reports that approximately 2 hours prior to this she had woken from a nap and was groggy and fell into the counter in her bathroom with right upper quadrant. She denies any other injuries from the fall. States that she did not have pain immediately following this and had worked 3 potting plants. Patient received multiple doses of morphine and fentanyl in the emergency department. She was so uncomfortable that she was unable to even get out of bed to urinate. Because of this she had a [place] catheter placed. Treatment Plan: Patient was discussed with Dr. Farah and Dr. Victor. She will be admitted for pain control and observation. Disposition: Admitted in improved condition. Impression: 1. Rectus sheath hematoma. This note was generated with [employer] dictation software. It may contain incorrect words, spelling, and punctuation that were not noted in review of the chart prior to signing ED Disposition - Plan for ED Patient: Disposition: Acute Care [facility]
--- NOTE | 2020-08-07 19:16 | CT_ITS ---
STUDY: CT ABDOMEN AND PELVIS WITH CONTRAST REASON FOR EXAM: Female, 80 years old. right side hematoma after falling against a counter RADIATION DOSAGE (If Supplied By Facility): CTDIvol = ( 16.29 ) mGy, DLP = ( 936.34 ) mGycm TECHNIQUE: Transaxial images were obtained from the dome of the diaphragm to the symphysis pubis without oral contrast. IV 100mL Isovue-370 was administered. Sagittal and coronal images were reconstructed. Individualized dose optimization techniques were used for this CT. COMPARISON: 08/07/2020 FINDINGS: There is minor atelectasis in left lower lobe.. The visualized portions of the heart are within normal limits. Nonspecific fatty infiltration of liver without mass or bile duct dilatation. There are calcified gallstones without evidence for acute cholecystitis.. Normal spleen. Normal pancreas. Normal bilateral adrenal glands. No evidence for renal obstruction or ureteral calculus. There are multiple right renal cysts. Normal visualized stomach. Normal small intestine. Diffuse diverticular changes of the colon without evidence for acute diverticulitis. Postop change status post appendectomy. Atherosclerotic changes of the aorta without evidence for aneurysm.. Normal inferior vena cava. Normal retroperitoneum. Incompletely distended thick-walled bladder containing LANGE catheter Large transverse rectus sheath hematoma noted on the right measuring approximately 8.47 x 5.22 x 9.9 cm no evidence for acute extravasation of contrast seen at this time to suggest active bleeding.. Lumbar spine demonstrates degenerative changes and multilevel laminectomy and posterior fusion. Hematoma appears to be decreased slightly in size since prior exam. CT/Abdomen/Pelvis W IV Cont ONLY IMPRESSION: Persistent right transverse rectus sheath hematoma which appears to have decreased very slightly since previous study. No evidence for active bleeding at this time Other findings as above Electronically Signed: Aram Sherman MD at 19:53 EST , Service support ,
--- NOTE | 2020-08-07 21:13 | PCM.HP.STD ---
Problem List (1) Intractable abdominal pain Status: Acute (2) Rectus sheath hematoma Status: Acute Qualifiers: Encounter type: initial encounter Qualified Code(s): S30.1XXA - Contusion of abdominal wall, initial encounter (3) Elevated BP without diagnosis of hypertension Status: Acute (4) Obesity (BMI 30.0-34.9) Status: Chronic (5) Chronic back pain Status: Chronic Qualifiers: Back pain location: back pain in unspecified location Back pain laterality: unspecified Qualified Code(s): M54.9 - Dorsalgia, unspecified; G89.29 - Other chronic pain History of Present Illness Date of Admission: 08/07/20 Chief Complaint: Abdominal pain, fall The patient is a 80 y/o F w/ PMHx: Chronic back pain s/p surgery with hardware, Obesity who presents to the [facility] ED on 08/07/20 with history of awakening from a nap, noting that she was late for an activity with unfortunate mechanical fall in her richey, hitting her abdomen onto her the edge of her counter with onset following RLQ sided abdominal pain, severe at ~1545 with a lump on the right side of her abdomen on day of ED presentation. Work-up in the ED included T 98.7, heart rate 100, BP initially 216/116 with pain control improved to 147/103, respiratory rate 17, 96% on room air, CBC with WC 11.7, hemoglobin 14.9, platelet 489 with left shift, unremarkable coags, BMP with glucose 116, BUN/creatinine 26/0.84, initial CT abdomen and pelvis at 1706 with noted large right-sided rectus sheath hematoma measuring approximately 10.3 x 9.4 x 6 cm with evidence of cholelithiasis with diverticular disease of the colon with follow-up for repeat CT abdomen pelvis with contrast at 1916 noting persistent right transverse rectus sheath hematoma decreased slightly since prior study with no evidence of active bleeding. In the ED patient administered oral oxycodone, Zofran, several rounds of morphine altered by fentanyl as well as normal saline. In the ED Devine catheter placed as patient was even unable to sit up secondary to the severity of her pain. Past Medical History Past Medical History (Chronic Problems): Chronic Problems Obesity (BMI 30.0-34.9) (Chronic) Chronic back pain (Chronic) Diverticulitis (Chronic) Back pain (Chronic) Gluten enteropathy (Chronic) Allergies gluten Allergy (Verified 08/07/20 16:41) Diarrhea Home Medications: Ambulatory Orders Medication Instructions Recorded Cholecalciferol (Vitamin D3) 2,000 unit PO DAILY 10/06/16 [D3-2000] Multivitamin [Multiple Vitamins] 1 each PO DAILY 10/06/16 [place]-3 Fatty Acids/Fish Oil [Fish 1 each PO DAILY 01/16/18 Oil 1,000 mg Capsule] Docusate Sodium [Colace] 100 mg PO DAILY #20 cap 08/07/20 Oxycodone HCl/Acetaminophen 1 tab PO Q6H PRN PRN 5 Days #20 tab 08/07/20 [Percocet 5/325] Surgical History: appendectomy, herniorrhaphy, - - Lumbar spinal surgery, several with hardware placement, appendectomy, umbilical hernia repair.. 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 Sibling History Items: - - Sister with a tumor in her back. Paternal History Items: Cancer - Father with a history of brain tumor. Review of Systems Constitutional: Reports: Malaise, Weakness, Fatigue. Denies: Anorexia, Chills, Fever, Weight Change HEENT: Denies: Head Aches, Sinus Congestion, Sinus Drainage Cardiovascular: Denies: Chest Pain, Palpitations Respiratory: Denies: Cough, Shortness of breath at rest, Sputum production Gastrointestinal: Reports: Abdominal Pain. Denies: Nausea, Vomiting Genitourinary: Denies: Dysuria Musculoskeletal: Reports: Back Pain, Joint Pain. Denies: Joint Tenderness Skin: Denies: Rash, Wounds Neurological: Denies: Numbness, Tingling, Focal weakness Psychiatric: Denies: Anxiety, Depression, Homicidal Ideations, Suicidal Ideations Hematologic/ Lymphatic: Denies: Easy Bruising, Easy Bleeding VTE Information - Inpt Only VTE Present on Admission: No VTE Mechan Device Prophylaxis: SCD's VTE Pharm Prophylaxis ordered?: No Reason prophylaxis not ordered:: Medical Contraindication Subjective: Patient laying in the ED bed, uncomfortable appearing, fatigued. Objective: Physical Examination: General: awake, alert, oriented x 3 and cooperative, laying in the ED bed, fatigued appearing. Skin: normal color, turgor, no icterus, cyanosis. HEENT: AT/NC, EOMI, PERRLA, mildly dry MM, no carotid bruits or JVD noted. Lungs: CTA bilaterally, moderate effort, moderate decrease BL bases, no rales, ronchi or wheezing. Heart: Regular rate and rhythm; no gallop, rub audible. Abdomen: soft, obese, significant tenderness to any palpation of the right lateral primarily upper quadrant, visible rectus sheath hematoma lump, no obvious distention otherwise, distant normal bowel sounds, difficulty assessing HSM secondary to pain elicited. Extremities: no cyanosis, clubbing, or edema. Neurological: patient awake, alert, oriented x 3; cognitive function intact; pupils equally reactive to light and accomodation; cranial nerves II-XII grossly normal, moving all 4 extremities but extremely limited given severity of abdominal discomfort with hematoma, no focal deficits, strength severely global decrease secondary to acute presentation. Psychiatric: affect appears uncomfortable, fatigued, no acute evidence of depressive or anxiety feelings. - Physical Exam Vitals/I&O's: Vital Signs Temp Pulse Resp BP Pulse Ox 97.6 F L 89 17 147/103 H 95 08/07/20 21:10 08/07/20 21:10 08/07/20 21:10 08/07/20 21:10 08/07/20 21:10 Oxygen Delivery Method Room Air Weight: 184 lb 1.376 oz Body Mass Index (BMI) 33.6 Laboratory Results 08/07/20 17:23: WBC 11.7 H, RBC 5.00, Hgb 14.9, Hct 44.7, MCV 89.4, MCH 29.8, MCHC 33.3, RDW Std Deviation 46.1 H, RDW Coeff of Carmen 14.2, Plt Count 489 H, MPV 9.5, Immature Gran % (Auto) 0.900, Neut % (Auto) 76.5 H, Lymph % (Auto) 15.1 L, [place] % (Auto) 7.3, Eos % (Auto) 0.0, Baso % (Auto) 0.2, Absolute Neuts (auto) 9.0 H, Absolute Lymphs (auto) 1.76, Nucleated RBC % 0 08/07/20 17:23: Sodium 138, Potassium 3.5, Chloride 102, Carbon Dioxide 29.0, Anion Gap 7, BUN 26 H, Creatinine 0.84, Estim Creat Clear Calc 41.54, Est GFR (MDRD) Af Amer 84, Est GFR (MDRD) Non-Af 69, BUN/Creatinine Ratio 31.0 H, Glucose 116 H, Calcium 9.6 08/07/20 17:23: PT 11.7, INR 0.9, APTT 28.0 Current Medications Sodium Chloride () 1,000 mls @ 125 mls/hr IV .Q8H ARJUN Last Admin: 08/07/20 17:21 Dose: 125 mls/hr Documented by: Assessment/Plan All Active Problems Intractable abdominal pain (Acute) Rectus sheath hematoma (Acute) Elevated BP without diagnosis of hypertension (Acute) Pancreatitis (Acute) The patient is a 80 y/o F w/ PMHx: Chronic back pain s/p surgery with hardware, Obesity who presents to the [facility] ED on 08/07/20 with history of awakening from a nap, noting that she was late for an activity with unfortunate mechanical fall in her richey, hitting her abdomen onto her the edge of her counter with onset following RLQ sided abdominal pain, severe at ~1545 with a lump on the right side of her abdomen on day of ED presentation. 1. Acute Intractable Abdominal Pain secondary to Mechanical Fall with resulting Acute Right Transverse Rectus Sheath Hematoma: ED evaluation with CT abdomen and pelvis at 1706 with noted large right-sided rectus sheath hematoma measuring approximately 10.3 x 9.4 x 6 cm with evidence of cholelithiasis with diverticular disease of the colon with follow-up for repeat CT abdomen pelvis at 1916 noting persistent right transverse rectus sheath hematoma decreased slightly since prior study with no evidence of active bleeding. Given ongoing intractable pain, per discussion with General Surgery, will admit to [facility], maintain on fall precautions, devine in place secondary to debility from acute pain, continue oral and IV pain regimen, PT and OT as well as case management for discharge planning. Surgery will evaluate in AM, recommended avoidance of any antiplt/anticoagulation, no need for repeat Hgb until AM. 2. Elevated BP without hypertensive diagnosis: Patient with elevated BPs above goal in the emergency room however this is likely associate with pain, will continue to closely monitor and if appropriate add regimen, as needed IV hydralazine in interim. 3. Obesity: Weight loss and lifestyle changes encouraged. 4. Chronic back pain: Patient with several prior surgeries with hardware, encourage physician every 2 changes. 5. DVT prophylaxis: SCDs, for any chemoprophylaxis given acute presentation. 6. CODE status: Patient does not have healthcare power of associate attorney nor living will. Encouraged her to consider setting these up especially given her advanced age. Following discussions about the differences in these status, requested Full Code status. Advanced Care Planning Face to Face Time: 16 minutes. OBSV E&M: 66151 Initial observation care L3 Procedures: 03206 Advncd Care Plan 30 Min
[2020-08-07] MEDS: HYDROmorphone 0.5 MG/0.5 ML SYRINGE IV (22:50)
[2020-08-07] MEDS: Gabapentin 100 MG Capsule PO (22:51)
[2020-08-08] MEDS: 0.9% Normal Saline 1,000 ML 100 ML IV (01:29)
[2020-08-08 04:29] VITALS: BP 125/65; PULSE 69; RESP 16; TEMP 36.6; O2SAT 95
[2020-08-08] MEDS: Acetaminophen 325 MG Tablet 650 MG PO (04:35)
[2020-08-08] MEDS: oxyCODONE 5 MG Tablet PO ×2 (04:35→17:37)
[2020-08-08 06:55] VITALS: O2SAT 96
[2020-08-08 06:58] LABS: Absolute Lymphocyte Count 1.91 X10^3/uL (0.83-4.51); Absolute Neutrophil Count 7.1 X10^3/uL (2.0-7.7); Basophil# 0.02 X10^3/uL; Basophil% 0.2 % (0-1); Hematocrit 36.9 % (37-47); Hemoglobin 11.9 g/dL (12.0-15.0); Lymphocyte # 1.91 X10^3/ul (4.0); Lymphocyte % 19.1 % (19-41); Mean Corp Hgb Conc 32.2 g/dL (32-36); Mean Corpuscular Volume 92.9 fL (81-99); Mean Platelet Vol. 9.1 fl (6.2-12.0); Monocyte# 0.74 X10^3/uL; Monocyte% 7.4 % (0-10); NRBC Flagged by Analyzer 0 % (0-5); Neutrophil # 7.14 X10^3/uL (2.7-7.7); Neutrophil % 71.6 % (47-70); Platelet Count 358 K/mm3 (150-450); RBC Distribution Width CV 14.6 % (11.6-14.6); RBC Distribution Width SD 49.8 fl (35.1-43.9); Red Blood Count 3.97 M/mm3 (4.2-5.4)
[2020-08-08 07:24] LABS: AST(SGOT) 12 U/L (15-37); Alanine Aminotransfer ALT/SGPT 27 U/L (13-56); Albumin, Serum 2.7 g/dL (3.2-5.0); Alkaline Phosphatase 84 U/L (45-117); Anion Gap 3 (5-15); BUN 23 mg/dL (7-18); Calcium,Total 8.5 mg/dL (8.5-10.1); Chloride 108 mmol/L (98-107); Creatinine, Serum 0.92 mg/dL (0.55-1.02); EST Glomerular Filtration Rate 62 mL/min (>60); Est Glom Filt Rate - Afr Amer 75 mL/min (>60); Estimated Creatinine Clearance 37.93 ml/min; Globulin 2.7 g/dL (2.2-4.2); Glucose 91 mg/dL (74-106); Potassium 3.8 mmol/L (3.5-5.1); Protein, Total 5.4 g/dL (6.4-8.2); Sodium Level 141 mmol/L (136-145)
--- NOTE | 2020-08-08 07:33 | PCM.PN.HOSP ---
Patient Problems: Active and Suspected Problems Intractable abdominal pain (Acute) Rectus sheath hematoma (Acute) Elevated BP without diagnosis of hypertension (Acute) Vitals/I&O's: Vital Signs Temp Pulse Resp BP Pulse Ox 97.8 F 69 16 125/65 H 96 08/08/20 04:29 08/08/20 04:29 08/08/20 04:29 08/08/20 04:29 08/08/20 06:55 Oxygen Delivery Method Room Air Weight: 166 lb 0.129 oz Body Mass Index (BMI) 30.3 Intake and Output for Last 24 Hours 08/06/20 08/07/20 08/08/20 23:59 23:59 23:59 Intake Total 200 / 200 1000 / 1000 Output Total 550 / 550 Balance -350 / -350 1000 / 1000 Laboratory Results 08/07/20 17:23: WBC 11.7 H, RBC 5.00, Hgb 14.9, Hct 44.7, MCV 89.4, MCH 29.8, MCHC 33.3, RDW Std Deviation 46.1 H, RDW Coeff of Carmen 14.2, Plt Count 489 H, MPV 9.5, Immature Gran % (Auto) 0.900, Neut % (Auto) 76.5 H, Lymph % (Auto) 15.1 L, [place] % (Auto) 7.3, Eos % (Auto) 0.0, Baso % (Auto) 0.2, Absolute Neuts (auto) 9.0 H, Absolute Lymphs (auto) 1.76, Nucleated RBC % 0 08/07/20 17:23: Sodium 138, Potassium 3.5, Chloride 102, Carbon Dioxide 29.0, Anion Gap 7, BUN 26 H, Creatinine 0.84, Estim Creat Clear Calc 41.54, Est GFR (MDRD) Af Amer 84, Est GFR (MDRD) Non-Af 69, BUN/Creatinine Ratio 31.0 H, Glucose 116 H, Calcium 9.6 08/07/20 17:23: PT 11.7, INR 0.9, APTT 28.0 08/08/20 06:50: WBC 10.0, RBC 3.97 L, Hgb 11.9 L, Hct 36.9 L, MCV 92.9, MCH 30.0, MCHC 32.2, RDW Std Deviation 49.8 H, RDW Coeff of Carmen 14.6, Plt Count 358, MPV 9.1, Immature Gran % (Auto) 0.700, Neut % (Auto) 71.6 H, Lymph % (Auto) 19.1, [place] % (Auto) 7.4, Eos % (Auto) 1.0, Baso % (Auto) 0.2, Absolute Neuts (auto) 7.1, Absolute Lymphs (auto) 1.91, Nucleated RBC % 0 08/08/20 06:50: Sodium 141, Potassium 3.8, Chloride 108 H, Carbon Dioxide 30.0, Anion Gap 3 L, BUN 23 H, Creatinine 0.92, Estim Creat Clear Calc 37.93, Est GFR (MDRD) Af Amer 75, Est GFR (MDRD) Non-Af 62, BUN/Creatinine Ratio 25.0 H, Glucose 91, Calcium 8.5, Total Bilirubin 0.40, AST 12 L, ALT 27, Alkaline Phosphatase 84, Total Protein 5.4 L, Albumin 2.7 L, Globulin 2.7, Albumin/Globulin Ratio 1.0 Current Medications Acetaminophen (Acetaminophen 325 Mg Tablet) 650 mg PO Q4H PRN PRN PRN Reason: Pain Score 1-10/Temp > 100.7 F Last Admin: 08/08/20 04:35 Dose: 650 mg Documented by: Al Hydroxide/Mg Hydroxide (Mag Hydrox/Al Hydrox/Simeth 30 Ml Udc) 30 ml PO Q6H PRN PRN PRN Reason: Gastric Burning Albuterol Sulfate (Albuterol 2.5 Mg/3 Ml Vial.Neb.) 2.5 mg INHALATION Q2H PRN PRN PRN Reason: Dyspnea, wheezing Gabapentin (Gabapentin 100 Mg Capsule) 100 mg PO BIDCM [facility] Last Admin: 08/07/20 22:51 Dose: 100 mg Documented by: Guaifenesin (Guaifenesin 10 Ml Udc (200mg/10ml)) 20 ml PO Q4H PRN PRN PRN Reason: COUGH Hydralazine HCl (Hydralazine 20 Mg/Ml Vial) 10 mg IV Q4H PRN PRN PRN Reason: SBP > 160 Hydromorphone HCl (Hydromorphone 0.5 Mg/0.5 Ml Syringe) 0.5 mg IV Q4H PRN PRN PRN Reason: Pain Score 6-10 Last Admin: 08/07/20 22:50 Dose: 0.5 mg Documented by: Sodium Chloride () 1,000 mls @ 100 mls/hr IV .Q10H ARJUN Last Admin: 08/08/20 01:29 Dose: 100 mls/hr Documented by: Lidocaine (Lidocaine 5% Patch) 2 patch TOPICAL DAILY ARJUN; Protocol Magnesium Hydroxide (Magnesium Hydroxide 30 Ml Udc) 30 ml PO DAILY PRN PRN PRN Reason: Constipation Melatonin (Melatonin 3 Mg Tablet) 3 mg PO QHS PRN PRN PRN Reason: INSOMNIA Ondansetron HCl (Ondansetron 4 Mg/2 Ml Vial) 4 mg IV Q8H PRN PRN PRN Reason: NAUSEA/VOMITING Oxycodone HCl (Oxycodone 5 Mg Tablet) 5 mg PO Q4H PRN PRN PRN Reason: Pain Score 4-5 Last Admin: 08/08/20 04:35 Dose: 5 mg Documented by: Prochlorperazine Edisylate (Prochlorperazine 10 Mg/2 Ml Vial) 5 mg IV Q4H PRN PRN PRN Reason: Breakthrough nausea/vomiting Psyllium Hydrophilic Mucilloid (Psyllium 1 Packet) 1 packet PO DAILY PRN PRN PRN Reason: Constipation Senna/Docusate Sodium (Senna/Docusate Sodium 1 Tablet) 2 tablet PO BID PRN PRN PRN Reason: Constipation Sodium Chloride (0.9% Saline Lock 10 Ml Syringe) 10 - 40 ml IV UD PRN PRN Reason: SALINE FLUSH Throat Lozenges (Benzocaine/Menthol 1 Lozenge) 1 lozenge MUCOUS MEM Q2H PRN PRN PRN Reason: SORE THROAT STROKE Vital Signs/Narrative: Vital Signs Temp Pulse Resp BP Pulse Ox 08/08/20 06:55 96 08/08/20 04:29 97.8 F 69 16 125/65 H 95 Medical Necessity - Tobacco Use Smoking Status: Never smoker Tobacco Use: Non-smoker Assessment/Plan All Active Problems Intractable abdominal pain (Acute) Rectus sheath hematoma (Acute) Elevated BP without diagnosis of hypertension (Acute) Pancreatitis (Acute) The patient is a 80 y/o F w/ PMHx: Chronic back pain s/p surgery with hardware, Obesity who presents to the [facility] ED on 08/07/20 with history of awakening from a nap, noting that she was late for an activity with unfortunate mechanical fall in her richey, hitting her abdomen onto her the edge of her counter with onset following RLQ sided abdominal pain, severe at ~1545 with a lump on the right side of her abdomen on day of ED presentation. 1. Acute Intractable Abdominal Pain secondary to Mechanical Fall with resulting Acute Right Transverse Rectus Sheath Hematoma: ED evaluation with CT abdomen and pelvis at 1706 with noted large right-sided rectus sheath hematoma measuring approximately 10.3 x 9.4 x 6 cm with evidence of cholelithiasis with diverticular disease of the colon with follow-up for repeat CT abdomen pelvis at 1916 noting persistent right transverse rectus sheath hematoma decreased slightly since prior study with no evidence of active bleeding. Given ongoing intractable pain, per discussion with General Surgery, will admit to [facility], maintain on fall precautions, devine in place secondary to debility from acute pain, continue oral and IV pain regimen, PT and OT as well as case management for discharge planning. Surgery will evaluate in AM, recommended avoidance of any antiplt/anticoagulation, no need for repeat Hgb until AM. 2. Elevated BP without hypertensive diagnosis: Patient with elevated BPs above goal in the emergency room however this is likely associate with pain, will continue to closely monitor and if appropriate add regimen, as needed IV hydralazine in interim. 3. Obesity: Weight loss and lifestyle changes encouraged. 4. Chronic back pain: Patient with several prior surgeries with hardware, encourage physician every 2 changes. 5. DVT prophylaxis: SCDs, for any chemoprophylaxis given acute presentation.
[2020-08-08] MEDS: Gabapentin 100 MG Capsule PO ×2 (08:26→17:37)
[2020-08-08] MEDS: Lidocaine 5% Patch 2 PATCH TOPICAL (08:27)
[2020-08-08 08:30] VITALS: BP 110/45; PULSE 72; RESP 16; TEMP 36.5; O2SAT 94
--- NOTE | 2020-08-08 10:24 | PCM.CONS.GEN ---
Problem List (1) Intractable abdominal pain Status: Acute (2) Rectus sheath hematoma Status: Acute Qualifiers: Encounter type: initial encounter Qualified Code(s): S30.1XXA - Contusion of abdominal wall, initial encounter Reason for Consult Date of Consultation: 08/08/20 Reason for Consultation: Rectus sheath hematoma History of Present Illness: The patient is a 80 year old F who presented with abdominal pain after a fall at home. Patient stated she was napping and awoke thinking she was late for an appointment. She hustled into the bathroom where she lost her balance and fell into her bathroom counter. She noted pain in her right wrist initially and then had 10 out of 10 pain in the right upper quadrant of the abdomen. CT scan of the ab/pel was obtained in the ED demonstrating a large right sided rectus sheath hematoma. Patient denies being on anticoagulation at home. Due to the pain, she was unable to make it to the bathroom to urinate. A Devine catheter was placed and patient was admitted for pain control. Upon examination, patient notes pain is much improved and controlled with oral pain medication. She has not been out of bed yet this morning. Past Medical History Past Medical History (Chronic Problems): Chronic Problems Obesity (BMI 30.0-34.9) (Chronic) Chronic back pain (Chronic) Diverticulitis (Chronic) Back pain (Chronic) Gluten enteropathy (Chronic) Allergies gluten Allergy (Verified 08/07/20 16:41) Diarrhea Home Medications: Ambulatory Orders Medication Instructions Recorded Cholecalciferol (Vitamin D3) 2,000 unit PO DAILY 10/06/16 [D3-2000] Multivitamin [Multiple Vitamins] 1 each PO DAILY 10/06/16 [place]-3 Fatty Acids/Fish Oil [Fish 1 each PO DAILY 01/16/18 Oil 1,000 mg Capsule] Docusate Sodium [Colace] 100 mg PO DAILY #20 cap 08/07/20 Oxycodone HCl/Acetaminophen 1 tab PO Q6H PRN PRN 5 Days #20 tab 08/07/20 [Percocet 5/325] Surgical History: appendectomy, herniorrhaphy, - - Lumbar spinal surgery, several with hardware placement, appendectomy, umbilical hernia repair.. Psychiatric History: No pertinent psych hx [employer] History: No pertinent [employer] history Lives: Spouse/ Significant Other Smoking Status: Never smoker Tobacco Use: Non-smoker Alcohol: None Drugs: None - *Family History Maternal History Items: - - Patient denies any market maternal family history including heart disease, diabetes, cancer, passed in her old age. Sibling History Items: - - Sister with a tumor in her back. Paternal History Items: Cancer - Father with a history of brain tumor. Review of Systems Constitutional: Denies: Chills, Fever, Weight Change HEENT: Denies: Head Aches, Sinus Congestion, Sinus Drainage Cardiovascular: Denies: Chest Pain, Palpitations Respiratory: Denies: Cough, Shortness of breath at rest, Sputum production Gastrointestinal: Reports: Abdominal Pain Genitourinary: Reports: Incontinence Musculoskeletal: Denies: Joint Pain, Joint Tenderness Skin: Denies: Rash, Wounds Neurological: Denies: Numbness, Tingling, Focal weakness Psychiatric: Denies: Anxiety, Depression, Homicidal Ideations, Suicidal Ideations Hematologic/ Lymphatic: Denies: Easy Bruising, Easy Bleeding Patient Problems: Active and Suspected Problems Intractable abdominal pain (Acute) Rectus sheath hematoma (Acute) Elevated BP without diagnosis of hypertension (Acute) - Physical Exam Vitals/I&O's: Vital Signs Temp Pulse Resp BP Pulse Ox 97.7 F L 72 16 110/45 L 94 08/08/20 08:30 08/08/20 08:30 08/08/20 08:30 08/08/20 08:30 08/08/20 08:30 Oxygen Delivery Method Room Air Weight: 166 lb 0.129 oz Body Mass Index (BMI) 30.3 Intake and Output for Last 24 Hours 08/06/20 08/07/20 08/08/20 23:59 23:59 23:59 Intake Total 200 / 200 1876.67 / 1876.67 Output Total 550 / 550 Balance -350 / -350 6.67 / 1875.67 General: Alert, Oriented x3, Cooperative HEENT: Atraumatic, PERRLA, EOMI, Normocephalic Neck: Supple, No JVD, Negative Carotid Bruits Lungs: Clear to auscultation, Normal air movement Cardiovascular: Regular rate, No murmurs Abdomen: Bowel Sounds Present, Soft, Tender - right upper quadrant Extremities: No edema, Capillary Refill Less than 3 Seconds Skin: No rashes, No breakdown Musculoskeletal: No Tenderness to Palpation of Joints or Extremities Neurological: Cranial nerves II-XII grossly intact Psych/Mental Status: Normal Affect, Appropriate Laboratory Results 08/07/20 17:23: WBC 11.7 H, RBC 5.00, Hgb 14.9, Hct 44.7, MCV 89.4, MCH 29.8, MCHC 33.3, RDW Std Deviation 46.1 H, RDW Coeff of Carmen 14.2, Plt Count 489 H, MPV 9.5, Immature Gran % (Auto) 0.900, Neut % (Auto) 76.5 H, Lymph % (Auto) 15.1 L, [place] % (Auto) 7.3, Eos % (Auto) 0.0, Baso % (Auto) 0.2, Absolute Neuts (auto) 9.0 H, Absolute Lymphs (auto) 1.76, Nucleated RBC % 0 08/07/20 17:23: Sodium 138, Potassium 3.5, Chloride 102, Carbon Dioxide 29.0, Anion Gap 7, BUN 26 H, Creatinine 0.84, Estim Creat Clear Calc 41.54, Est GFR (MDRD) Af Amer 84, Est GFR (MDRD) Non-Af 69, BUN/Creatinine Ratio 31.0 H, Glucose 116 H, Calcium 9.6 08/07/20 17:23: PT 11.7, INR 0.9, APTT 28.0 08/08/20 06:50: WBC 10.0, RBC 3.97 L, Hgb 11.9 L, Hct 36.9 L, MCV 92.9, MCH 30.0, MCHC 32.2, RDW Std Deviation 49.8 H, RDW Coeff of Carmen 14.6, Plt Count 358, MPV 9.1, Immature Gran % (Auto) 0.700, Neut % (Auto) 71.6 H, Lymph % (Auto) 19.1, [place] % (Auto) 7.4, Eos % (Auto) 1.0, Baso % (Auto) 0.2, Absolute Neuts (auto) 7.1, Absolute Lymphs (auto) 1.91, Nucleated RBC % 0 08/08/20 06:50: Sodium 141, Potassium 3.8, Chloride 108 H, Carbon Dioxide 30.0, Anion Gap 3 L, BUN 23 H, Creatinine 0.92, Estim Creat Clear Calc 37.93, Est GFR (MDRD) Af Amer 75, Est GFR (MDRD) Non-Af 62, BUN/Creatinine Ratio 25.0 H, Glucose 91, Calcium 8.5, Total Bilirubin 0.40, AST 12 L, ALT 27, Alkaline Phosphatase 84, Total Protein 5.4 L, Albumin 2.7 L, Globulin 2.7, Albumin/Globulin Ratio 1.0 Current Medications Acetaminophen (Acetaminophen 325 Mg Tablet) 650 mg PO Q4H PRN PRN PRN Reason: Pain Score 1-10/Temp > 100.7 F Last Admin: 08/08/20 04:35 Dose: 650 mg Documented by: Al Hydroxide/Mg Hydroxide (Mag Hydrox/Al Hydrox/Simeth 30 Ml Udc) 30 ml PO Q6H PRN PRN PRN Reason: Gastric Burning Albuterol Sulfate (Albuterol 2.5 Mg/3 Ml Vial.Neb.) 2.5 mg INHALATION Q2H PRN PRN PRN Reason: Dyspnea, wheezing Gabapentin (Gabapentin 100 Mg Capsule) [facility] Last Admin: 08/08/20 08:26 Dose: 100 mg Documented by: Guaifenesin (Guaifenesin 10 Ml Udc (200mg/10ml)) 20 ml PO Q4H PRN PRN PRN Reason: COUGH Hydralazine HCl (Hydralazine 20 Mg/Ml Vial) 10 mg IV Q4H PRN PRN PRN Reason: SBP > 160 Hydromorphone HCl (Hydromorphone 0.5 Mg/0.5 Ml Syringe) 0.5 mg IV Q4H PRN PRN PRN Reason: Pain Score 6-10 Last Admin: 08/07/20 22:50 Dose: 0.5 mg Documented by: Lidocaine (Lidocaine 5% Patch) 2 patch TOPICAL DAILY ON LICENSE OF [facility]; Protocol Last Admin: 08/08/20 08:27 Dose: 2 patch Documented by: Magnesium Hydroxide (Magnesium Hydroxide 30 Ml Udc) 30 ml PO DAILY PRN PRN PRN Reason: Constipation Melatonin (Melatonin 3 Mg Tablet) 3 mg PO QHS PRN PRN PRN Reason: INSOMNIA Ondansetron HCl (Ondansetron 4 Mg/2 Ml Vial) 4 mg IV Q8H PRN PRN PRN Reason: NAUSEA/VOMITING Oxycodone HCl (Oxycodone 5 Mg Tablet) 5 mg PO Q4H PRN PRN PRN Reason: Pain Score 4-5 Last Admin: 08/08/20 04:35 Dose: 5 mg Documented by: Prochlorperazine Edisylate (Prochlorperazine 10 Mg/2 Ml Vial) 5 mg IV Q4H PRN PRN PRN Reason: Breakthrough nausea/vomiting Psyllium Hydrophilic Mucilloid (Psyllium 1 Packet) 1 packet PO DAILY PRN PRN PRN Reason: Constipation Senna/Docusate Sodium (Senna/Docusate Sodium 1 Tablet) 2 tablet PO BID PRN PRN PRN Reason: Constipation Sodium Chloride (0.9% Saline Lock 10 Ml Syringe) 10 - 40 ml IV UD PRN PRN Reason: SALINE FLUSH Throat Lozenges (Benzocaine/Menthol 1 Lozenge) 1 lozenge MUCOUS MEM Q2H PRN PRN PRN Reason: SORE THROAT Assessment/Plan All Active Problems Intractable abdominal pain (Acute) Rectus sheath hematoma (Acute) Elevated BP without diagnosis of hypertension (Acute) Pancreatitis (Acute) I have been consulted in conjunction with Dr. Farah. He has independently evaluated this patient. Impression: Right sided rectal sheath hematoma form mechanical fall Plan: Discussed patient with Dr. Farah. Patient's pain well controlled with oral pain medication. Once patient is able to be up and ambulating safely, she may have her devine catheter removed. Discussed with the patient that healing time may take months. She may switch to Tylenol if narcotic pain medication is not needed. She is to follow-up with her family physician for ongoing care. No surgical intervention is being recommended. Patient will observe. Patient has had the opportunity to ask and have questions answered. Patient verbally understands and agrees with the plan. OKay to discharge today from a surgical standpoint. Thank you for allowing us to participate in this patient's care. Office Visits / Consults: [id number] IP Consult L3
--- NOTE | 2020-08-08 11:54 | DCINST_ITS ---
- Discharge Diagnoses Current Active Problems: Current Active and Chronic Problems Intractable abdominal pain (Acute) Rectus sheath hematoma (Acute) Elevated BP without diagnosis of hypertension (Acute) Obesity (BMI 30.0-34.9) (Chronic) Chronic back pain (Chronic) You will use the following diet at home:: No restrictions Your food should be the consistency of: Regular Your liquids should be the consistency of: Regular/Thin Discharge Activity: May not drive while taking narcotic pain medications. Instructions: ED Hematoma Allergies/Adverse Reactions: Allergies gluten Allergy (Verified 08/07/20 16:41) Diarrhea Medications to take at Discharge Cholecalciferol (Vitamin D3) [D3-2000] 2,000 unit PO DAILY 10/06/16 Multivitamin [Multiple Vitamins] 1 each PO DAILY 10/06/16 [place]-3 Fatty Acids/Fish Oil [Fish Oil 1,000 mg Capsule] 1 each PO DAILY 01/16/18 Docusate Sodium [Colace] 100 mg PO DAILY #20 cap 08/07/20 Oxycodone HCl/Acetaminophen [Percocet 5/325] 1 tab PO Q6H PRN PRN 5 Days #20 tab 08/07/20 Acetaminophen [Tylenol Tablet] 650 mg PO Q6H PRN PRN tab 08/08/20 The following prescriptions were given: Docusate Sodium [Colace] 100 mg PO DAILY #20 cap Prescription Printed Oxycodone HCl/Acetaminophen [Percocet 5/325] 1 tab PO Q6H PRN PRN 5 Days #20 tab PRN Reason: Pain Score 6-10 Prescription Printed Primary Care Physician: Darci Farah MD [STAFF PHYSICIAN] - 3-5 Days if not improving Jillian Canada DO [Primary Care Provider] - As Needed Test Results: Test results from this visit will be discussed in further detail at your follow- up appointment, if applicable. Proposed Discharge Date: 08/08/20
--- NOTE | 2020-08-08 11:56 | PCM.DC.SUM ---
<Bhargav Smith - Last Filed: 08/08/20 11:56> Discharge Date and Diagnosis - Problem List Patient Problems: Active and Suspected Problems Intractable abdominal pain (Acute) Rectus sheath hematoma (Acute) Elevated BP without diagnosis of hypertension (Acute) Date of Admission: 08/07/20 Date of Discharge: 08/08/20 - Primary Discharge Diagnosis Acute Problems: Active Problems Rectus sheath hematoma (Acute) 2/2 mechanical fall with contusion - Secondary Discharge Diagnosis Chronic Problems: Chronic Problems Obesity (BMI 30.0-34.9) (Chronic) Chronic back pain (Chronic) Diverticulitis (Chronic) Back pain (Chronic) Gluten enteropathy (Chronic) Hospital Course and Treatment Imaging Results: CT/Abdomen/Pelvis without Cont IMPRESSION: Large right-sided rectus sheath hematoma measuring approximately 10.3 x 9.4 x 6 cm Cholelithiasis without evidence for acute cholecystitis. Diverticular disease of the colon without evidence for acute diverticulitis. Other findings as above CT/Abdomen/Pelvis W IV Cont ONLY IMPRESSION: Persistent right transverse rectus sheath hematoma which appears to have decreased very slightly since previous study. No evidence for active bleeding at this time Other findings as above Consults: Sofi - General Surgery Operations: None Procedures: None Summary of Care Provided: Hospital Course: The patient is a 80 year old F with pmhx chronic back pain and obesity who presented to the ER with abdominal pain. She had a mechanical fall and struck her abdomen on a counter with severe pain and swelling. She had a CT revealing rectus sheath hematoma. Hgb was normal. Plan was for DC from the ER however her pain was uncontrolled making it difficult to move or sit up. She was admitted and treated with supportive care. She was seen by general surgery who recommended no intervention. Pain was significantly improved and she was ambulatory with PT/OT. She was discharged home in stable condition and will need to follow up with surgery and PCP in a week. This patient was seen by Bhargav Smith PA-C under the supervision of Dr. Blackwell. [] Patient Problems: Active and Suspected Problems Intractable abdominal pain (Acute) Rectus sheath hematoma (Acute) Elevated BP without diagnosis of hypertension (Acute) - Physical Exam Vitals/I&O's: Vital Signs Temp Pulse Resp BP Pulse Ox 97.7 F L 72 16 110/45 L 94 08/08/20 08:30 08/08/20 08:30 08/08/20 08:30 08/08/20 08:30 08/08/20 08:30 Oxygen Delivery Method Room Air Weight: 166 lb 0.129 oz Body Mass Index (BMI) 30.3 Intake and Output for Last 24 Hours 08/06/20 08/07/20 08/08/20 23:59 23:59 23:59 Intake Total 200 / 200 1876.67 / 1876.67 Output Total 550 / 550 Balance -350 / -350 6. / 1875. General: Alert, Oriented x3, Cooperative HEENT: Atraumatic, PERRLA, EOMI, Normocephalic Neck: Supple, No JVD, Negative Carotid Bruits Lungs: Clear to auscultation, Normal air movement Cardiovascular: Regular rate, No murmurs Abdomen: Bowel Sounds Present, Soft, Non Tender Extremities: No edema, Capillary Refill Less than 3 Seconds Skin: No rashes, No breakdown, - - abdomen- tender, swollen at contusion site Musculoskeletal: No Tenderness to Palpation of Joints or Extremities Neurological: Cranial nerves II-XII grossly intact Psych/Mental Status: Normal Affect, Appropriate Laboratory Results 08/07/20 17:23: WBC 11.7 H, RBC 5.00, Hgb 14.9, Hct 44.7, MCV 89.4, MCH 29.8, MCHC 33.3, RDW Std Deviation 46.1 H, RDW Coeff of Carmen 14.2, Plt Count 489 H, MPV 9.5, Immature Gran % (Auto) 0.900, Neut % (Auto) 76.5 H, Lymph % (Auto) 15.1 L, [place] % (Auto) 7.3, Eos % (Auto) 0.0, Baso % (Auto) 0.2, Absolute Neuts (auto) 9.0 H, Absolute Lymphs (auto) 1.76, Nucleated RBC % 0 08/07/20 17:23: Sodium 138, Potassium 3.5, Chloride 102, Carbon Dioxide 29.0, Anion Gap 7, BUN 26 H, Creatinine 0.84, Estim Creat Clear Calc 41.54, Est GFR (MDRD) Af Amer 84, Est GFR (MDRD) Non-Af 69, BUN/Creatinine Ratio 31.0 H, Glucose 116 H, Calcium 9.6 08/07/20 17:23: PT 11.7, INR 0.9, APTT 28.0 08/08/20 06:50: WBC 10.0, RBC 3.97 L, Hgb 11.9 L, Hct 36.9 L, MCV 92.9, MCH 30.0, MCHC 32.2, RDW Std Deviation 49.8 H, RDW Coeff of Carmen 14.6, Plt Count 358, MPV 9.1, Immature Gran % (Auto) 0.700, Neut % (Auto) 71.6 H, Lymph % (Auto) 19.1, [place] % (Auto) 7.4, Eos % (Auto) 1.0, Baso % (Auto) 0.2, Absolute Neuts (auto) 7.1, Absolute Lymphs (auto) 1.91, Nucleated RBC % 0 08/08/20 06:50: Sodium 141, Potassium 3.8, Chloride 108 H, Carbon Dioxide 30.0, Anion Gap 3 L, BUN 23 H, Creatinine 0.92, Estim Creat Clear Calc 37.93, Est GFR (MDRD) Af Amer 75, Est GFR (MDRD) Non-Af 62, BUN/Creatinine Ratio 25.0 H, Glucose 91, Calcium 8.5, Total Bilirubin 0.40, AST 12 L, ALT 27, Alkaline Phosphatase 84, Total Protein 5.4 L, Albumin 2.7 L, Globulin 2.7, Albumin/Globulin Ratio 1.0 Current Medications Acetaminophen (Acetaminophen 325 Mg Tablet) 650 mg PO Q4H PRN PRN PRN Reason: Pain Score 1-10/Temp > 100.7 F Last Admin: 08/08/20 04:35 Dose: 650 mg Documented by: Al Hydroxide/Mg Hydroxide (Mag Hydrox/Al Hydrox/Simeth 30 Ml Udc) 30 ml PO Q6H PRN PRN PRN Reason: Gastric Burning Albuterol Sulfate (Albuterol 2.5 Mg/3 Ml Vial.Neb.) 2.5 mg INHALATION Q2H PRN PRN PRN Reason: Dyspnea, wheezing Gabapentin (Gabapentin 100 Mg Capsule) 100 mg PO BIDCM [facility] Last Admin: 08/08/20 08:26 Dose: 100 mg Documented by: Guaifenesin (Guaifenesin 10 Ml Udc (200mg/10ml)) 20 ml PO Q4H PRN PRN PRN Reason: COUGH Hydralazine HCl (Hydralazine 20 Mg/Ml Vial) 10 mg IV Q4H PRN PRN PRN Reason: SBP > 160 Hydromorphone HCl (Hydromorphone 0.5 Mg/0.5 Ml Syringe) 0.5 mg IV Q4H PRN PRN PRN Reason: Pain Score 6-10 Last Admin: 08/07/20 22:50 Dose: 0.5 mg Documented by: Lidocaine (Lidocaine 5% Patch) 2 patch TOPICAL DAILY [facility]; Protocol Last Admin: 08/08/20 08:27 Dose: 2 patch Documented by: Magnesium Hydroxide (Magnesium Hydroxide 30 Ml Udc) 30 ml PO DAILY PRN PRN PRN Reason: Constipation Melatonin (Melatonin 3 Mg Tablet) 3 mg PO QHS PRN PRN PRN Reason: INSOMNIA Ondansetron HCl (Ondansetron 4 Mg/2 Ml Vial) 4 mg IV Q8H PRN PRN PRN Reason: NAUSEA/VOMITING Oxycodone HCl (Oxycodone 5 Mg Tablet) 5 mg PO Q4H PRN PRN PRN Reason: Pain Score 4-5 Last Admin: 08/08/20 04:35 Dose: 5 mg Documented by: Prochlorperazine Edisylate (Prochlorperazine 10 Mg/2 Ml Vial) 5 mg IV Q4H PRN PRN PRN Reason: Breakthrough nausea/vomiting Psyllium Hydrophilic Mucilloid (Psyllium 1 Packet) 1 packet PO DAILY PRN PRN PRN Reason: Constipation Senna/Docusate Sodium (Senna/Docusate Sodium 1 Tablet) 2 tablet PO BID PRN PRN PRN Reason: Constipation Sodium Chloride (0.9% Saline Lock 10 Ml Syringe) 10 - 40 ml IV UD PRN PRN Reason: SALINE FLUSH Throat Lozenges (Benzocaine/Menthol 1 Lozenge) 1 lozenge MUCOUS MEM Q2H PRN PRN PRN Reason: SORE THROAT Discharge Diet: No Restrictions Discharge Activity: May not drive while taking narcotic pain medications. Home Medications: Medications to take at Discharge Cholecalciferol (Vitamin D3) [D3-2000] 2,000 unit PO DAILY 10/06/16 Multivitamin [Multiple Vitamins] 1 each PO DAILY 10/06/16 [place]-3 Fatty Acids/Fish Oil [Fish Oil 1,000 mg Capsule] 1 each PO DAILY 01/16/18 Docusate Sodium [Colace] 100 mg PO DAILY #20 cap 08/07/20 Oxycodone HCl/Acetaminophen [Percocet 5/325] 1 tab PO Q6H PRN PRN 5 Days #20 tab 08/07/20 Acetaminophen [Tylenol Tablet] 650 mg PO Q6H PRN PRN tab 08/08/20 Following Prescriptions Were Given to Patient: Docusate Sodium [Colace] 100 mg PO DAILY #20 cap Prescription Printed Oxycodone HCl/Acetaminophen [Percocet 5/325] 1 tab PO Q6H PRN PRN 5 Days #20 tab PRN Reason: Pain Score 6-10 Prescription Printed Primary Care Physician: Darci Farah MD [STAFF PHYSICIAN] - 3-5 Days if not improving Jillian Canada DO [Primary Care Provider] - As Needed Patient Instructions: ED Hematoma Disposition: Home Minutes spent on discharge:: 35 Patient Condition:: Stable Medical Necessity - Tobacco Use Smoking Status: Never smoker Tobacco Use: Non-smoker Meaningful Use Info Meaningful Use Diagnoses (Choose all that apply): None applicable <RishiNate - Last Filed: 08/08/20 12:29> Discharge Date and Diagnosis - Primary Discharge Diagnosis Acute Problems: Active Problems Intractable abdominal pain (Acute) Rectus sheath hematoma (Acute) Elevated BP without diagnosis of hypertension (Acute) - Secondary Discharge Diagnosis Chronic Problems: Chronic Problems Obesity (BMI 30.0-34.9) (Chronic) Chronic back pain (Chronic) Diverticulitis (Chronic) Back pain (Chronic) Gluten enteropathy (Chronic) Hospital Course and Treatment Summary of Care Provided: This patient was seen in conjunction with Bhargav HERRERA. I have independently interviewed and examined the patient and reviewed pertinent history, examination findings, laboratory and plan of management. I have reviewed the note and agree with the documented findings with the few additional points. In brief, patient is 80-year-old female was admitted with severe abdominal pain after she had an accidental fall and struck her abdomen on countertop. CT showed showed right rectus sheath hematoma. Patient hemodynamically blood pressure and heart rate stable. No tachypnea or hypoxia. H&H is stable although it showed mild drop from 14.9-11.9 but no bleeding from urine or stool or hematemesis. On IV fluid therefore mild hemodilution component too. Patient seen by surgeon Dr. Farah and advised discharge home. I have discussed my assessment with Bhargav HERRERA and orders have been reviewed. [] Objective: Seen and examined. Patient was admitted after she had rectus sheath hematoma. Patient accidentally hit her abdomen on the countertop while she was walking drowsy and half sleep. She felt severe pain after 2 hours of the incidence. Currently her pain is controlled. Patient does not have chronic heart disease or lung disease. She not on antiplatelet or antithrombotic agent. Denies any previous history of bleeding disorder or thromboembolic disorder. Physical exam General: Alert, Oriented x3, Cooperative HEENT: Atraumatic, PERRLA, EOMI, Normocephalic Oral: No Gingival or Mucosal Lesions/ Ulcerations Neck: Supple, No JVD, Negative Carotid Bruits Lungs: Air entry equal in bilateral lung bases. No crepitation/rhonchi Cardiovascular: Regular rate, Regular Rhythm, Normal S1, Normal S2, No murmurs Abdomen: Tenderness present on the right rectus sheath and oblique muscle. Mild swelling present. Bowel Sounds Present, Soft. : No renal angle tenderness. No suprapubic tenderness. Extremities: No edema, Capillary Refill Less than 3 Seconds Skin: No rashes, No breakdown Musculoskeletal: No Tenderness to Palpation of Joints or Extremities Neurological: Cranial nerves II-XII grossly intact, Deep Tendon Reflexes 2+/4 and Symmetrical, Neuro grossly intact Psych/Mental Status: Normal Affect, Appropriate. - Physical Exam Vitals/I&O's: Vital Signs Temp Pulse Resp BP Pulse Ox 97.7 F L 72 16 110/45 L 94 08/08/20 08:30 08/08/20 08:30 08/08/20 08:30 08/08/20 08:30 08/08/20 08:30 Oxygen Delivery Method Room Air Weight: 166 lb 0.129 oz Body Mass Index (BMI) 30.3 Intake and Output for Last 24 Hours 08/06/20 08/07/20 08/08/20 23:59 23:59 23:59 Intake Total 200 / 200 2376.67 / 2376.67 Output Total 550 / 550 325 / 325 Balance -350 / -350 2051.67 / 2051.67 Laboratory Results 08/07/20 17:23: WBC 11.7 H, RBC 5.00, Hgb 14.9, Hct 44.7, MCV 89.4, MCH 29.8, MCHC 33.3, RDW Std Deviation 46.1 H, RDW Coeff of Carmen 14.2, Plt Count 489 H, MPV 9.5, Immature Gran % (Auto) 0.900, Neut % (Auto) 76.5 H, Lymph % (Auto) 15.1 L, [place] % (Auto) 7.3, Eos % (Auto) 0.0, Baso % (Auto) 0.2, Absolute Neuts (auto) 9.0 H, Absolute Lymphs (auto) 1.76, Nucleated RBC % 0 08/07/20 17:23: Sodium 138, Potassium 3.5, Chloride 102, Carbon Dioxide 29.0, Anion Gap 7, BUN 26 H, Creatinine 0.84, Estim Creat Clear Calc 41.54, Est GFR (MDRD) Af Amer 84, Est GFR (MDRD) Non-Af 69, BUN/Creatinine Ratio 31.0 H, Glucose 116 H, Calcium 9.6 08/07/20 17:23: PT 11.7, INR 0.9, APTT 28.0 08/08/20 06:50: WBC 10.0, RBC 3.97 L, Hgb 11.9 L, Hct 36.9 L, MCV 92.9, MCH 30.0, MCHC 32.2, RDW Std Deviation 49.8 H, RDW Coeff of Carmen 14.6, Plt Count 358, MPV 9.1, Immature Gran % (Auto) 0.700, Neut % (Auto) 71.6 H, Lymph % (Auto) 19.1, [place] % (Auto) 7.4, Eos % (Auto) 1.0, Baso % (Auto) 0.2, Absolute Neuts (auto) 7.1, Absolute Lymphs (auto) 1.91, Nucleated RBC % 0 08/08/20 06:50: Sodium 141, Potassium 3.8, Chloride 108 H, Carbon Dioxide 30.0, Anion Gap 3 L, BUN 23 H, Creatinine 0.92, Estim Creat Clear Calc 37.93, Est GFR (MDRD) Af Amer 75, Est GFR (MDRD) Non-Af 62, BUN/Creatinine Ratio 25.0 H, Glucose 91, Calcium 8.5, Total Bilirubin 0.40, AST 12 L, ALT 27, Alkaline Phosphatase 84, Total Protein 5.4 L, Albumin 2.7 L, Globulin 2.7, Albumin/Globulin Ratio 1.0 Current Medications Acetaminophen (Acetaminophen 325 Mg Tablet) 650 mg PO Q4H PRN PRN PRN Reason: Pain Score 1-10/Temp > 100.7 F Last Admin: 08/08/20 04:35 Dose: 650 mg Documented by: Al Hydroxide/Mg Hydroxide (Mag Hydrox/Al Hydrox/Simeth 30 Ml Udc) 30 ml PO Q6H PRN PRN PRN Reason: Gastric Burning Albuterol Sulfate (Albuterol 2.5 Mg/3 Ml Vial.Neb.) 2.5 mg INHALATION Q2H PRN PRN PRN Reason: Dyspnea, wheezing Gabapentin (Gabapentin 100 Mg Capsule) 100 mg PO BIDCM [facility] Last Admin: 08/08/20 08:26 Dose: 100 mg Documented by: Guaifenesin (Guaifenesin 10 Ml Udc (200mg/10ml)) 20 ml PO Q4H PRN PRN PRN Reason: COUGH Hydralazine HCl (Hydralazine 20 Mg/Ml Vial) 10 mg IV Q4H PRN PRN PRN Reason: SBP > 160 Hydromorphone HCl (Hydromorphone 0.5 Mg/0.5 Ml Syringe) 0.5 mg IV Q4H PRN PRN PRN Reason: Pain Score 6-10 Last Admin: 08/07/20 22:50 Dose: 0.5 mg Documented by: Lidocaine (Lidocaine 5% Patch) 2 patch TOPICAL DAILY [facility]; Protocol Last Admin: 08/08/20 08:27 Dose: 2 patch Documented by: Magnesium Hydroxide (Magnesium Hydroxide 30 Ml Udc) 30 ml PO DAILY PRN PRN PRN Reason: Constipation Melatonin (Melatonin 3 Mg Tablet) 3 mg PO QHS PRN PRN PRN Reason: INSOMNIA Ondansetron HCl (Ondansetron 4 Mg/2 Ml Vial) 4 mg IV Q8H PRN PRN PRN Reason: NAUSEA/VOMITING Oxycodone HCl (Oxycodone 5 Mg Tablet) 5 mg PO Q4H PRN PRN PRN Reason: Pain Score 4-5 Last Admin: 08/08/20 04:35 Dose: 5 mg Documented by: Prochlorperazine Edisylate (Prochlorperazine 10 Mg/2 Ml Vial) 5 mg IV Q4H PRN PRN PRN Reason: Breakthrough nausea/vomiting Psyllium Hydrophilic Mucilloid (Psyllium 1 Packet) 1 packet PO DAILY PRN PRN PRN Reason: Constipation Senna/Docusate Sodium (Senna/Docusate Sodium 1 Tablet) 2 tablet PO BID PRN PRN PRN Reason: Constipation Sodium Chloride (0.9% Saline Lock 10 Ml Syringe) 10 - 40 ml IV UD PRN PRN Reason: SALINE FLUSH Throat Lozenges (Benzocaine/Menthol 1 Lozenge) 1 lozenge MUCOUS MEM Q2H PRN PRN PRN Reason: SORE THROAT OBSV E&M: 05225 Observation care discharge
[2020-08-08 14:22] VITALS: BP 143/61; PULSE 73; RESP 16; TEMP 36.8; O2SAT 95
== END 2020-08-08 18:13 | disposition home or self-care (01) ==
LOC: ED 17:50 → MS3 21:42
PROVIDERS: Admitting Provider Family Medicine; Emergency Provider Emergency Medicine; PCP Internal Medicine; Referring Provider Family Medicine; Visit Provider Internal Medicine
DX: S30.1XXA Contusion of abdominal wall, initial encounter (principal); W19.XXXA Unspecified fall, initial encounter; Y93.9 Activity, unspecified; Y92.009 Unspecified place in unspecified non-institutional (private) residence as the place of occurrence of the external cause; R03.0 Elevated blood-pressure reading, without diagnosis of hypertension; E66.9 Obesity, unspecified; Z68.30 Body mass index [BMI] 30.0-30.9, adult
CPT/HCPCS: 36415; 51702; 74176; 74177; 80048; 80053; 85025; 85610; 85730; 96361; 96374; 96375; 96376; 97162; 97166; 99218; 99251; 99285; J7030; Q9967; A4216; G0378; G0463; J2405

== ENCOUNTER → 2021-08-23 08:02 | Outpatient (CLI) | payer MEDICARE, SELFPAY ==
--- NOTE | 2021-08-23 08:14 | CDU_ITS ---
Reason For Study: Atherosclerosis of both carotid arteries Rt. Velocities/BP Lt. Velocities/BP Prox CCA 72.1/14.7 cm/sec. Prox CCA 70.7/14.6 cm/sec. Mid CCA 60.4/12.1 cm/sec. Mid CCA 66.2/15.7 cm/sec. Dist CCA 54.2/13.5 cm/sec. Dist CCA 55.3/13.5 cm/sec. Prox ICA 39.9/13.5 cm/sec. Prox ICA 38.1/10.7 cm/sec. Mid ICA 66.3/19 cm/sec. Mid ICA 55.1/18.2 cm/sec. Dist ICA 71.8/22.3 cm/sec. Dist ICA 64.5/17.3 cm/sec. Rt. ICA/CCA = 1.2. Lt. ICA/CCA = 1.0. Prox ECA 75/5.8 cm/sec. Prox ECA 75/6.9 cm/sec. Rt. Vert. 53.1/8 cm/sec. Lt. Vert. 29.1/9 cm/sec. Right Extracranial There is homogeneous, smooth atherosclerotic plaque noted in the right common carotid artery. There is heterogeneous, irregular atherosclerotic plaque noted in the right internal carotid artery. There is intimal thickening but no significant atherosclerotic plaque noted in the right external carotid artery. Antegrade flow is noted in the right vertebral artery. Left Extracranial There is homogeneous, smooth atherosclerotic plaque noted in the left common carotid artery. There is intimal thickening but no significant atherosclerotic plaque noted in the left internal carotid artery. There is intimal thickening but no significant atherosclerotic plaque noted in the left external carotid artery. Antegrade flow is noted in the left vertebral artery. Procedure Carotid Duplex [id number]. This is a Carotid Duplex examination using B-mode, color flow and specral Doppler. Exam performed in department. VL/Carotid Duplex Ultrasound Interpretation Summary Mild (<50%) stenosis right extracranial internal carotid. No significant athero sclerotic plaque or stenosis noted in the left internal carotid artery. Flow within the vertebral a rteries is antegrade bilaterally. Ordering Physician: Jillian Canada Referring Physician: Jillian Canada Performed By: Lupe Arzola RVT
== END ==
PROVIDERS: PCP Internal Medicine; Referring Provider Internal Medicine; Visit Provider Internal Medicine
DX: I65.23 Occlusion and stenosis of bilateral carotid arteries (principal)
CPT/HCPCS: 93880

== ENCOUNTER 2021-12-17 08:00 | Outpatient (RCR) | payer MEDICARE, SELFPAY ==
--- NOTE | 2021-11-05 10:21 | HP.PTEVAL_ITS ---
Patient's Visit Information DUANE EDUARDO is a 81 year old F referred to Physical Therapy by Dr. Deepika Angel MD with a diagnosis of Right Hip Pain. Date of Evaluation: 11/05/21 Physical Therapist: Digna Brenner DPT - Visit Plan Frequency: 3x /Week Duration: 3 Weeks Plan: Focus on LE and core strength/stabilization and proprioception- Caution multiple lumbar fusions. HEP Given IE: TA Contraction, Bridge with glut set, Hip add with ball, Hip abd with OTB - Subjective Patient reports that she thought she ruined her hip stepping onto a step stool to get into her bed. So she took the box springs out and the pain has continued to get worse. She uses an exercise bike at home and wants to know if she is doing the right things. She plans to get on a tour bus November 26 and head to [place]. The pain is in the right hip on the lateral aspect which radiates into the lumbar spine. She has had a lumbar fusion 3x- last one was about a 4 years ago. No pain that radiates into the groin or down the leg. Worst: 8/10 Agg: puzzles leaning over the table, sleeping Eases: sitting. Best: 3-4/10. Describes the pain as a pain- just there. No N/T in the toes. Has had x-rays which showed OA in her hip. No injections or medications. Sleep: disturbed- prob gets up/down every 2 hours- goes from couch/bed- side sleeper- does sometimes end up on her back. PMHx: none Meds: none - Objective Posture: FH, RS- can correct with verbal cues but is unable to maintain. Gait: antalgic- decreased stance on the right LE with moderate Trendelenburg- No AD in clinic. HR/TR: able with UE A. SLS: weight shift but unable to SLS- significant hip drop. Sensation: WFL. Flex: HS: moderate, Gastroc: moderate, Soleus: moderate. ROM: WFL in all planes. Strength: Core: poor, Hip: 4-/5 throughout, Knee: 4+/5, Ankle: 5/5. Stairs: asc/desc non recip with 1 HR - Special Tests L/S Slump test right side: Positive L/S Right Straight Leg Raise: Positive R Hip Scour: Positive R Hip LANG - Intraarticular Pathology: Positive R Hip FADDIR - Labrum: Positive R Hip Trendelenberg - Glut Medius: Positive R Hip Sourav - IT Band: Positive - Balance/Special Test Scores Lower Extremity Functional Score: 22 - Goals Goal 1:: Patient will be I with HEP and progression Goal Time Frame: 4-6 Weeks Goal 2:: Patient will ambulate >300 feet with a normalized gait pattern Goal Time Frame: 4-6 Weeks Goal 3:: Patient will SLS for 5 seconds without LOB and no hip drop Goal Time Frame: 4-6 Weeks Goal 4:: Patient will report no pain with ADL's. Goal Time Frame: 4-6 Weeks Goal 5:: Patient will report subjectively more than 75% better Goal Time Frame: 4-6 Weeks Goal 6:: Patient will maintain proper posture t/o tx session to demo increased core s/s Goal Time Frame: 4-6 Weeks - Rehabilitation Potential Physical Therapy Diagnosis: Patient presents with hypomobility- she has decreased LE and core strength/stabilization, flexibility and muscular endurance leading to poor posture, abnormal gait pattern and increased pain with ADL's. Rehabilitation Potential: Fair - Anticipated Interventions Patient/Client Instruction: Educate patient on: Benefits of Fitness Program Therapeutic Exercise to Include: Strength training, Endurance training, Balance training, Coordination, Agility training, Body mechanics, Postural training, Flexibilty training, Dynamic Lumbar Stabilization, Scapular Strength/Stabilization For the Purpose of:: To improve muscle performance and motor function TENS: Yes Cryotherapy (ice pack, ice massage): Yes Thermo therapy (hot pack): Yes Ultrasound (thermal/non thermal): No Thank you for the opportunity to evaluate your patient. For Medicare and Medicare HMO plans, please review the plan of care and approve it. It will need to be FAXED BACK to us at [phone] for Medicare purposes. For Medicare only, by signing this I certify the plan of care. Please let me know if there are questions or concerns regarding this plan of care. Physician Signature: Date:
--- NOTE | 2021-12-17 08:40 | HP.PTDCSUM ---
It has been my pleasure to treat DUANE EDUARDO referred by Dr. Deepika Angel MD, with the diagnosis of Right Hip Pain for a total of 7 visit(s). Discharge Date: Please see the following information for a summary of their discharge status. Subjective: Patient reports that she is doing the exercises at home and is feeling better. She knows that she needs to keep moving. She rode a bus down the [place] and it was terrible so she flew home. She feels that she can do the exercises at home. R hip Pain Intensity (Out of 10): 3 % Improvement: 60 Objective/Function: Posture: FH, RS- can correct with verbal cues but is unable to maintain. Gait: no deviation noted HR/TR: able with UE A. SLS: 3-5 seconds Sensation: WFL. Flex: HS: moderate, Gastroc: moderate, Soleus: moderate. ROM: WFL in all planes. Strength: Core: fair Hip: 4/5 throughout, Knee: 4+/5, Ankle: 5/5. Stairs: asc/desc recip with 2 HR. - Special Tests. L/S Slump test right side: Positive. L/S Right Straight Leg Raise: Positive. R Hip Scour: Positive. R Hip LANG - Intraarticular Pathology: Positive. R Hip FADDIR - Labrum: Positive. R Hip Trendelenberg - Glut Medius: Positive. R Hip Sourav - IT Band: Positive Goal 1:: Patient will be I with HEP and progression Goal Progress: Goal Met Goal 2:: Patient will ambulate >300 feet with a normalized gait pattern Goal Progress: Goal Met Goal 3:: Patient will SLS for 5 seconds without LOB and no hip drop Goal Progress: Goal Met Goal 4:: Patient will report no pain with ADL's. Goal Progress: Progressing Goal 5:: Patient will report subjectively more than 75% better Goal Progress: Progressing Goal 6:: Patient will maintain proper posture t/o tx session to demo increased core s/s Goal Progress: Progressing Plan: 12/17/2021: Discharge to I HEP. Focus on LE and core strength/stabilization and proprioception- Caution multiple lumbar fusions. HEP Given IE: TA Contraction, Bridge with glut set, Hip add with ball, Hip abd with OTB If there are questions or concerns regarding this patient's physical therapy, please feel free to call me at [phone]. Thank you for the referral of this patient. Sincerely, Digna Brenner, GURUT Balance/Gait/Functional tests - Balance/Special Test Scores Lower Extremity Functional Score: 36
== END 2021-12-17 08:49 | disposition home or self-care (01) ==
LOC: PT 08:00
PROVIDERS: PCP Internal Medicine; Referring Provider Internal Medicine; Visit Provider Internal Medicine
DX: M70.71 Other bursitis of hip, right hip (principal)
CPT/HCPCS: 97110; 97162; 97164

== ENCOUNTER 2022-06-11 09:00 | Outpatient (RCR) | payer MEDICARE, SELFPAY ==
--- NOTE | 2022-05-13 10:26 | HP.PTEVAL_ITS ---
Patient's Visit Information DUANE EDUARDO is a 81 year old F referred to Physical Therapy by Dr. Baljinder Coyle MD with a diagnosis of Hamstring injury R. Date of Evaluation: 05/13/22 Physical Therapist: REFUGIO Norris - Visit Plan Frequency: 2x /Week Duration: 4 Weeks Plan: 2X/ week for 4 weeks for R HS stretches, foam rolling to the R HS, MT and US to the R Hamstring and R progressive LE hip and knee strength (HS), core stability, with HEP. HEP: Green strap HS stretches in supine, bridges X 10 (as long as no pain), and LAQ (for nerve root tension) - Subjective Pt reports that she stumbled on an off set in the front of the grocery store and leaped FW and caught self on a newspaper box. She got a knot in her R hamstring and could not walk. She did ice and pain pills and got oxycodone. This was 3 weeks ago Friday and it was a lot better now. She still has pain all the time (deep ache)but it is mostly along the R HS). She has had 3 back surgeries and did an x-ray and was told none of this was coming from her back. It hurts when she walks. If she moves fast it will increase in pain and trying a big step will increase her pain. The ice and heat alternating will help the first week. Now she is not icing or heating. She is not taking any pain meds. She is doing some HS stretches in supine with a belt (started last week). And also piriformis stretching. Stairs: one step at a time (she does not go up on the R foot). Her hamstring was irritated before she stumbled with driving and this really increased the pain. Getting in and out of a chair is no trouble but getting in and out of bed is an issue. Since this she struggles sleeping on the R side. She has no N&T. - Pain R Hamstring pain Pain Intensity (Out of 10): 7 - Objective Gait: Walks with decreased stride due to increase pain in the R HS. Hamstring bothers her with sitting.... Hamstring length: Decreased muscle length on the R with increase in pain. MMT: R hip flex 6.5# and L 6.1#. R knee ext 12.4# and 12.5#. R knee flex 8.3# and L 6.5#. Able to bridge but increase HS pain and only 1/2 normal ROM. Patella DTR's: 1+/3 B. Sit to stand: Able to stand up using no arms and minimal pain...she likes to keep knees together with sit to stand. SLUMP test: Very tight and painful on the R... the more LAQ she did the looser it became. Stairs: up with the L and down with the R with the railing. Heel and toe raises: able with no pain but uses arms for balance - Balance/Special Test Scores Lower Extremity Functional Score: 19 - Goals Goal 1:: I HEP Goal Time Frame: 4-6 Weeks Goal 2:: Be able to walk with normal strides without pain Goal Time Frame: 4-6 Weeks Goal 3:: Be able to go up and down the step recip without pain Goal Time Frame: 4-6 Weeks Goal 4:: Increase R knee flex strength (at time of the eval R knee flex 8.3# and L 6.5#) Goal Time Frame: 4-6 Weeks - Rehabilitation Potential Rehabilitation Potential: Good - Anticipated Interventions Patient/Client Instruction: Educate patient on: Condition, Plan of Care For the Purpose of:: To decrease pain, To decrease swelling/inflammation, To increase ROM, To improve nutrient delivery to tissue, To improve muscle performance and motor function, To improve ability to perform ADL's, To increase tolerance to activity/condition/position, To improve performance and independence with ADL's, To decrease level of supervision to perform tasks, To improve ability of physical actions for home/community/work/leisure, To improve gait and locomotor functions, To improve health of tissue, To decrease soft tissue restriction, To increase flexibility/ROM, To improve endurance, To improve balance Therapeutic Exercise to Include: Strength training, Endurance training, Balance training, Postural training, Flexibilty training, Gait and locomotor training, Neuromotor development, Passive ROM, Active ROM, Dynamic Lumbar Stabilization For the Purpose of:: To decrease pain, To decrease swelling/inflammation, To increase ROM, To improve nutrient delivery to tissue, To increase oxygenation perfusion, To improve muscle performance and motor function, To improve ability to perform ADL's, To increase tolerance to activity/condition/position, To improve performance and independence with ADL's, To decrease level of supervision to perform tasks, To improve ability of physical actions for home/community/work/leisure, To improve gait and locomotor functions, To improve health of tissue, To decrease soft tissue restriction, To increase flexibility/ROM, To improve balance, To improve safety with gait, To assume or resume ADL's Functional Training to Include: Gait training For the Purpose of:: To improve gait and locomotor functions, To improve safety with gait Manual Therapy Techniques to Include: Soft tissue mobilization For the Purpose of:: To decrease pain, To decrease swelling/inflammation, To increase ROM, To improve nutrient delivery to tissue IF ES: Yes Cryotherapy (ice pack, ice massage): Yes Thermo therapy (hot pack): Yes Ultrasound (thermal/non thermal): Yes For the Purpose of:: To decrease pain, To decrease swelling/inflammation, To inc rease ROM, To improve nutrient delivery to tissue, To improve muscle performance and motor function Thank you for the opportunity to evaluate your patient. For Medicare and Medicare HMO plans, please review the plan of care and approve it. It will need to be FAXED BACK to us at [phone] for Medicare purposes. For Medicare only, by signing this I certify the plan of care. Please let me know if there are questions or concerns regarding this plan of care. Physician Signature: Date:
--- NOTE | 2022-06-11 09:28 | HP.PTDCSUM ---
It has been my pleasure to treat DUANE EDUARDO referred by Dr. Baljinder Coyle MD, with the diagnosis of Hamstring injury R for a total of 5 visit(s). Discharge Date: 06/11/22 Please see the following information for a summary of their discharge status. Subjective: Pt late for appt. Pt has a massage table that she is doing her exercises on. She has no pain and even the HS pain she had prior to the injury and that is even better. Once in awhile she will do stretches before getting out of bed in the morning. R Hamstring pain Pain Intensity (Out of 10): 0 % Improvement: 95 Objective/Function: R knee flex 13.7# and L 18.6#. R knee ext 18.5# and L knee ext 24.3#. Gait: Walks with a normal gait pattern. Stairs: up and down recip without any hesitation. Pt is I in HEP and stretches Goal 1:: I HEP Goal Progress: Goal Met Goal 2:: Be able to walk with normal strides without pain Goal Progress: Goal Met Goal 3:: Be able to go up and down the step recip without pain Goal Progress: Goal Met Goal 4:: Increase R knee flex strength (at time of the eval R knee flex 8.3# and L 6.5#) Goal Progress: Goal Met Plan: 2X/ week for 4 weeks for R HS stretches, foam rolling to the R HS, MT and US to the R Hamstring and R progressive LE hip and knee strength (HS), core stability, with HEP. HEP: Green strap HS stretches in supine, bridges X 10 (as long as no pain), and LAQ (for nerve root tension) Discharge Comments: DC PT to HEP If there are questions or concerns regarding this patient's physical therapy, please feel free to call me at [phone]. Thank you for the referral of this patient. Sincerely, Veda Allan, MPT Balance/Gait/Functional tests - Balance/Special Test Scores Lower Extremity Functional Score: 57
== END 2022-06-11 19:00 | disposition home or self-care (01) ==
LOC: PT 09:00
PROVIDERS: PCP Internal Medicine; Referring Provider Orthopaedic Surgery Sports Medicine; Visit Provider Orthopaedic Surgery Sports Medicine
DX: S76.301D Unspecified injury of muscle, fascia and tendon of the posterior muscle group at thigh level, right thigh, subsequent encounter (principal)
CPT/HCPCS: 97110; 97161; 97530

== ENCOUNTER 2022-06-13 08:10 | Outpatient (RCR) | payer MEDICARE, SELFPAY | END 2022-06-13 08:11 | disposition home or self-care (01) | LOC: PT 08:10 | PROVIDERS: PCP Internal Medicine; Referring Provider Internal Medicine; Visit Provider Internal Medicine | DX: M25.512 Pain in left shoulder (principal) ==

== ENCOUNTER 2023-03-15 14:12 | Emergency (ER) | payer MEDICARE, SELFPAY ==
[2023-03-15 14:13] VITALS: BP 187/79; PULSE 101; RESP 18; TEMP 36.4; O2SAT 98; BMI 29.6
--- NOTE | 2023-03-15 14:25 | CT_ITS ---
STUDY: CT Abdomen And Pelvis W/ Contrast Injection 03/15/2023 3:46 PM REASON FOR EXAM: Female, 82 years old. Abdominal pain rlq abdominal pain Individualized dose optimization techniques were used for this CT. COMPARISON: 08.07.20. TECHNIQUE: CT Abdomen And Pelvis W/ Contrast Injection IV 100mL [id number] FINDINGS: There are atherosclerotic calcifications of visualized coronary arteries. The visualized portions of the heart are within normal limits. Normal liver. There are multiple gallstones. Normal spleen. Normal pancreas. Normal bilateral adrenal glands. There are hypodensities in the right kidney. These are consistent for cysts. No follow up required. There are hypodensities in the left kidney. These are consistent for cysts. No follow up required. Normal visualized stomach. Normal small intestine. There is diverticulosis, with thickening of the colon wall, and pericolonic inflammation changes consistent with acute diverticulitis. There are surgical clips in the region of the appendix consistent with a prior appendectomy. There are calcifications of the abdominal aorta. This is consistent for atherosclerotic disease. There is NO abdominal aortic aneurysm. Vascular workup can be obtained based on clinical correlation. Normal inferior vena cava. Subcentimeter mesenteric lymph nodes. Normal urinary bladder. There is atrophy of the uterus. There is an umbilical hernia containing fat. There are diffuse degenerative changes of the visualized lumbar spine. Laminectomy changes. Spinal fixation hardware. Grade 1 anterolisthesis of L3 on L4. CT/Abdomen/Pelvis W IV Cont ONLY IMPRESSION: (NOT LISTED IN ORDER OF SIGNIFICANCE) Moderate acute sigmoid diverticulitis. There is no evidence to suggest abscess formation. There are multiple gallstones. Other findings as above. Electronically Signed: Jim Billy MD at 15:50 EDT ,
--- NOTE | 2023-03-15 14:26 | EDS_ITS ---
HPI HPI - GI History of Present Illness Chief Complaint: Abd Pain Narrative Narrative: 82-year-old female with abdominal pain. She states in the lower abdomen. It is just to the right of midline. Patient states it started this morning. She does not feel rundown or had fever or chills. No nausea or vomiting. No diarrhea or constipation. She is concerned she might have a UTI but she does not have any urinary frequency, dysuria. Patient has history of appendectomy in the past. She also has a history of diverticulitis and pancreatitis. [facility] Medical History Right hamstring injury Home Medications cholecalciferol (vitamin D3) 50 mcg (2,000 unit) capsule (D3-2000) 2,000 unit PO DAILY supplement 10/06/16 [History Last Taken 08/07/20] multivitamin (Multiple Vitamins tablet) 1 ea PO DAILY supplement 10/06/16 [History Last Taken 08/07/20] omega-3 fatty acids-fish oil 340 mg-1,000 mg capsule (Fish Oil) 1 ea PO DAILY supplement 01/16/18 [History Last Taken 08/07/20] hydrocortisone acetate 25 mg rectal suppository (Anusol-HC) 25 mg DC TID PRN hemorrhoids #24 ea 11/25/21 [Rx Last Taken Unknown] oxycodone 5 mg tablet 5 mg PO 05/03/22 [History Last Taken Unknown] amoxicillin 875 mg-potassium clavulanate 125 mg tablet 1 tab PO BID #20 tabs 03/15/23 [Rx Last Taken Unknown] ondansetron 4 mg disintegrating tablet 4 mg PO Q8H PRN PRN Nausea #14 tabs 03/15/23 [Rx Last Taken Unknown] Allergy/AdvReac Type Severity Reaction Status Date / Time gluten Allergy Diarrhea Verified 03/15/23 14:17 Social History Smoking Status: Never smoker ROS ROS ED Constitutional Constitutional ED: Denies chills, fever(s) or sweats Eyes Eyes: Denies blurry vision or change in vision ENT ENT ED: Denies ear pain or sore throat Cardiovascular Cardiovascular: Denies chest pain, palpitations or racing heartbeat Respiratory/Chest Respiratory/Chest: Denies cough, dyspnea or sputum Gastrointestinal Gastrointestinal: Reports abdominal pain; Denies constipation, diarrhea, nausea or vomiting Genitourinary Genitourinary ED: Denies dysuria, hematuria or urinary frequency Musculoskeletal Musculoskeletal: Denies arthralgias, myalgias or neck pain Integumentary Denies abscess, Abrasions or rash Neurologic Neurologic: Denies headache(s), paresthesias or weakness Psychiatric Psychiatric: Denies anxiety, depression, suicidal ideation or suicidal thoughts Endocrine Endocrinology: Denies polydipsia or polyuria EXAM Physical Exam Const Vital Signs: 03/15/23 14:13 Temperature 97.6 F L Temperature Source Temporal Pulse Rate 101 H Respiratory Rate 18 Blood Pressure 187/79 H Blood Pressure Mean 115 Pulse Ox 98 Oxygen Delivery Method Room Air Positive well nourished General Appearance ED: NAD; Negative for pallor HEENT Reports moist mucous membranes normocephalic and atraumatic Eyes PERRL and EOMs intact bilaterally Resp normal respiratory effort and clear to auscultation bilaterally Cardio regular rate and regular rhythm GI Palpation: tender RLQ Back/Spine no CVA tenderness Neuro CN's II-XII intact bilaterally Sensorium / Orientation: alert Psych mental status grossly normal Skin no wounds General Skin Exam: Negative for jaundice or pallor MDM MDM MDM Narrative Medical decision making narrative: Patient with lower abdominal pain just right of midline. Differential includes malignancy, UTI, ovarian cyst, ovarian torsion, colitis, diverticulitis, pyelonephritis, small bowel obstruction, constipation. CBC to assess white blood cell count, hemoglobin, platelets, differential. CMP to assess liver function, renal function, electrolytes, glucose, anion gap. Lipase to assess for pancreatitis. Urinalysis to assess for UTI. Patient declines analgesia and antiemetics at this time. We will obtain a CT of the abdomen pelvis with IV contrast. CBC shows a slight leukocytosis at 12.3. Hemoglobin stable at 13.7. Renal function and electrolytes unremarkable. LFTs are normal. Lipase 68. Urinalysis negative for infection. CT of the abdomen pelvis with IV contrast shows acute diverticulitis. Patient was counseled on findings. We discussed the recommended diet. We will place her on Augmentin with first dose in the ED. She will also be given Zofran to make sure she is drinking plenty of fluids. Return precautions were discussed. Impression: 1. Acute diverticulitis Lab Data Labs: Laboratory Results - last 24 hr 03/15/23 03/15/23 03/15/23 14:40 14:40 15:40 WBC 12.3 H RBC 4.54 Hgb 13.7 Hct 42.1 MCV 92.7 MCH 30.2 MCHC 32.5 RDW Std Deviation 50.4 H RDW Coeff of Carmen 14.8 H Plt Count 321 MPV 9.6 Immature Gran % (Auto) 0.400 Neut % (Auto) 79.8 H Lymph % (Auto) 10.4 L Pratt % (Auto) 7.6 Eos % (Auto) 1.3 Baso % (Auto) 0.5 Absolute Neuts (auto) 9.8 H Absolute Lymphs (auto) 1.28 Nucleated RBC % 0 Sodium 139 Potassium 3.8 Chloride 106 Carbon Dioxide 25.0 Anion Gap 8 BUN 27 H Creatinine 0.86 Estim Creat Clear Calc 39.20 Est GFR (MDRD) Af Amer 81 Est GFR (MDRD) Non-Af 67 BUN/Creatinine Ratio 31.4 H Glucose 111 H Calcium 9.4 Total Bilirubin 0.30 AST 18 ALT 25 Alkaline Phosphatase 100 Total Protein 6.6 Albumin 3.5 Globulin 3.1 Albumin/Globulin Ratio 1.1 Lipase 68 Urine Color Yellow Urine Clarity Clear Urine pH 6.0 Ur Specific [place] 1.015 Urine Protein 15 H Urine Glucose (UA) Normal Urine Ketones 50 H Urine Occult Blood Negative Urine Nitrite Negative Urine Bilirubin Negative Urine Urobilinogen Normal Ur Leukocyte Esterase Negative Radiography Diagnostic Testing: Clinical Impression(s) from Imaging Studies Abdomen/Pelvis CT 03/15/23 14:25 IMPRESSION: (NOT LISTED IN ORDER OF SIGNIFICANCE) Moderate acute sigmoid diverticulitis. There is no evidence to suggest abscess formation. There are multiple gallstones. Other findings as above. Electronically Signed: Jim Billy MD at 15:50 EDT , Discharge Plan Triage Chief Complaint: Abd Pain ED Provider: Howard Reid Dx/Rx/DC Orders Clinical Impression: Diverticulitis Instructions: ED Diverticulitis Prescriptions: New amoxicillin-pot clavulanate 875-125 mg tablet 1 tab PO BID Qty: 20 0RF ondansetron 4 mg tablet,disintegrating 4 mg PO Q8H PRN PRN (Reason: Nausea) Qty: 14 0RF No Action hydrocortisone acetate [Anusol-HC] 25 mg suppository 25 mg DC TID PRN (Reason: hemorrhoids) Qty: 24 0RF oxycodone 5 mg tablet 5 mg PO multivitamin [Multiple Vitamins] 1 EACH tablet 1 ea PO DAILY cholecalciferol (vitamin D3) [D3-2000] 2,000 UNIT capsule 2,000 unit PO DAILY omega-3 fatty acids-fish oil [Fish Oil] 1 EACH capsule 1 ea PO DAILY Primary Care Provider: Jillian Canada Referrals: Jillian Canada DO [Primary Care Provider] - Disposition Disposition: Home, Self Care
[2023-03-15] MEDS: 0.9% Normal Saline 1,000 ML 1000 ML IV (14:48)
[2023-03-15 14:53] LABS: Absolute Lymphocyte Count 1.28 X10^3/uL (0.83-4.51); Absolute Neutrophil Count 9.8 X10^3/uL (2.0-7.7); Basophil# 0.06 X10^3/uL; Basophil% 0.5 % (0-1); Eosinophil# 0.16 X10^3/uL; Eosinophils% 1.3 % (0-5); Hematocrit 42.1 % (37-47); Hemoglobin 13.7 g/dL (12.0-15.0); Lymphocyte # 1.28 X10^3/ul (0.83-4.51); Lymphocyte % 10.4 % (19-41); Mean Corp Hgb Conc 32.5 g/dL (32-36); Mean Corpuscular Hgb 30.2 pg (27.0-32.0); Mean Corpuscular Volume 92.7 fL (81-99); Mean Platelet Vol. 9.6 fl (6.2-12.0); Monocyte# 0.93 X10^3/uL; Monocyte% 7.6 % (0-10); NRBC Flagged by Analyzer 0 % (0-5); Neutrophil % 79.8 % (47-70); Platelet Count 321 K/mm3 (150-450); RBC Distribution Width CV 14.8 % (11.6-14.6); RBC Distribution Width SD 50.4 fl (35.1-43.9); Red Blood Count 4.54 M/mm3 (4.2-5.4); White Blood Count 12.3 K/mm3 (4.4-11.0)
[2023-03-15 15:15] LABS: ALB/GLOB Ratio 1.1 RATIO (0.9-2.4); AST(SGOT) 18 U/L (15-37); Alanine Aminotransfer ALT/SGPT 25 U/L (13-56); Albumin, Serum 3.5 g/dL (3.2-5.0); Alkaline Phosphatase 100 U/L (45-117); Anion Gap 8 (5-15); BUN 27 mg/dL (7-18); BUN/Creat Ratio 31.4 RATIO (10-20); Calcium,Total 9.4 mg/dL (8.5-10.1); Chloride 106 mmol/L (98-107); Creatinine, Serum 0.86 mg/dL (0.55-1.02); EST Glomerular Filtration Rate 67 mL/min (>60); Est Glom Filt Rate - Afr Amer 81 mL/min (>60); Globulin 3.1 g/dL (2.2-4.2); Glucose 111 mg/dL (74-106); Lipase 68 U/L (13-75); Potassium 3.8 mmol/L (3.5-5.1); Protein, Total 6.6 g/dL (6.4-8.2); Sodium Level 139 mmol/L (136-145)
[2023-03-15 15:48] LABS: Bacteria 0 SEEN /hpf (None Seen); Mucous, Urine 0 SEEN /hpf (<or=2+); Red Blood Cells-Urine 0 SEEN /hpf (0-5)
[2023-03-15 16:01] LABS: Color, Urine Yellow (Yellow); Glucose, Dipstick Normal (Normal); Ketone-Dipstick 50 mg/dl (Negative); Leukocyte Esterase-Dipstick Negative /ul (Negative); Nitrite-Dipstick Negative (Negative); Occult Blood-Urine Negative /ul (Negative); Protein-Dipstick 15 mg/dl (Negative); Specific Gravity, Urine 1.015 (1.002-1.030); Urine Bilirubin Dipstick Negative (Negative); Urine Clarity Clear (Clear); Urine Urobilinogen Normal (Normal)
[2023-03-15] MEDS: Amox/Clavulanate 875 MG Tablet PO (16:16)
[2023-03-15 16:26] LABS: Squamous Epithelial Cells - UA 0-5 SEEN /hpf (5-10); White Blood Cells 0-5 SEEN /hpf (0-5)
== END 2023-03-15 16:19 | disposition home or self-care (01) ==
PROVIDERS: Emergency Provider Student in an Organized Health Care Education/Training Program; PCP Internal Medicine; Visit Provider Student in an Organized Health Care Education/Training Program
DX: K57.32 Diverticulitis of large intestine without perforation or abscess without bleeding (principal); Z87.19 Personal history of other diseases of the digestive system; K80.20 Calculus of gallbladder without cholecystitis without obstruction
CPT/HCPCS: 74177; 80053; 81001; 83690; 85025; 96360; 99284; J7030; Q9967; A4216

== ENCOUNTER 2023-03-30 02:24 | Emergency (ER) | payer MEDICARE, SELFPAY ==
[2023-03-30 02:24] VITALS: BP 192/74; PULSE 77; RESP 18; TEMP 36.4; O2SAT 98; BMI 30.1
--- NOTE | 2023-03-30 02:33 | CT_ITS ---
EXAM: CT ABDOMEN AND PELVIS WITHOUT INTRAVENOUS CONTRAST CLINICAL INDICATION: Pain TECHNIQUE: Helically acquired images were obtained of the abdomen and pelvis without intravenous contrast. This CT exam was performed using one or more of the following dose reduction techniques: automated exposure control, adjustment of the mA and/or kV according to patient size, and/or use of iterative reconstruction technique. RADIATION DOSE: CTDIvol = 12.97 mGy, DLP = 583.27 mGy-cm. COMPARISON: March 15, 2023 FINDINGS: LOWER THORAX: Unremarkable. Lung bases are clear. No cardiomegaly. No significant pericardial effusion. ABDOMEN: LIVER: Unremarkable. Homogeneous. GALLBLADDER AND BILE DUCTS: There is a large stone deep in the gallbladder neck, 2.4 cm, similar to recent prior exam. Prominently distended gallbladder with slight suspected haziness medial to the gallbladder, the fundus images 3.6 cm transverse. PANCREAS: Unremarkable. No focal cystic mass. SPLEEN: Unremarkable. Normal size without focal cystic or solid mass. ADRENALS: Unremarkable. No nodules. KIDNEYS AND URETERS: Similar right renal cyst of 3.7 cm, the smaller renal cysts are not well evaluated on the unenhanced exam, not well seen. Normal renal size and position. STOMACH AND BOWEL: Mild gas and minimal fluid in the stomach. Mildly prominent fluid and gas in the small bowel. Moderate stool in the proximal right colon. Mild gas and stool in some of the colon. Collapsed and questionably minimally thick-walled segments of transverse colon and descending colon. Mild stool and gas in the sigmoid. Scattered diverticulosis, especially moderate diverticulosis in descending and sigmoid colon, no evidence of significant acute diverticulitis. No stomach or bowel distention. PELVIS: APPENDIX: Appendectomy clips. BLADDER: Unremarkable. REPRODUCTIVE: Unremarkable as visualized. No mass. ABDOMEN and PELVIS: INTRAPERITONEAL SPACE: Unremarkable. No ascites or other fluid collection. No free air. BONES/JOINTS: Degenerative and postoperative changes of the spine appears similar from recent prior exam, with anterolisthesis at L3 with respect to L4 and resection of multiple posterior elements and posterior intact hardware at L1-L4. No suspicious lytic or blastic abnormality. SOFT TISSUES: Unremarkable. No discrete abdominal or pelvic wall hernia. VASCULATURE: Unremarkable. Abdominal aorta is non-dilated. LYMPH NODES: Unremarkable. No enlarged lymph nodes. CT/Abdomen/Pelvis without Cont IMPRESSION: 1. Increased distention of the gallbladder with persistent large stone deep in the gallbladder neck, suspicion of slight gallbladder wall thickening and surrounding haziness. Suspicious for acute cholecystitis in the appropriate clinical setting. Consider ultrasound if it is thought to be indicated. 2. Moderate diverticulosis, no evidence of acute diverticulitis. Cannot exclude mild multifocal colitis but it is not convincing. This is a limited exam for colon screening for neoplasm with multiple collapsed bowel segments. 3. Appendectomy. 4. Postoperative spine changes. Electronically Signed: Rosemary Verduzco MD at 3:37 EDT ,
--- NOTE | 2023-03-30 02:35 | EX.ED.DYSGE1 ---
HPI History of Present Illness Chief Complaint: Abd Pain Narrative Narrative: Patient presents with epigastric pain that started a few hours ago, she has some nausea but no vomiting. The pain does not radiate into her back she has no lower abdominal pain. She has a history of pancreatitis and this feels similar. This started after eating tonight. No urinary symptoms no flank pain. No recent fevers or chills. PFSH [facility] Medical History Right hamstring injury Home Medications cholecalciferol (vitamin D3) 50 mcg (2,000 unit) capsule (D3-2000) 2,000 unit PO DAILY supplement 10/06/16 [History Last Taken 08/07/20] multivitamin (Multiple Vitamins tablet) 1 ea PO DAILY supplement 10/06/16 [History Last Taken 08/07/20] omega-3 fatty acids-fish oil 340 mg-1,000 mg capsule (Fish Oil) 1 ea PO DAILY supplement 01/16/18 [History Last Taken 08/07/20] hydrocortisone acetate 25 mg rectal suppository (Anusol-HC) 25 mg DC TID PRN hemorrhoids #24 ea 11/25/21 [Rx Last Taken Unknown] oxycodone 5 mg tablet 5 mg PO 05/03/22 [History Last Taken Unknown] amoxicillin 875 mg-potassium clavulanate 125 mg tablet 1 tab PO BID #20 tabs 03/15/23 [Rx Last Taken Unknown] ondansetron 4 mg disintegrating tablet 4 mg PO Q8H PRN PRN Nausea #14 tabs 03/15/23 [Rx Last Taken Unknown] hydrocodone-acetaminophen 5-325mg 5mg-325mg 1 tab PO Q6H 3 days #12 TABLETS 03/30/23 [Rx Last Taken Unknown] ondansetron 4 mg disintegrating tablet 4 mg PO Q8H PRN PRN Nausea #10 tabs 03/30/23 [Rx Last Taken Unknown] Allergy/AdvReac Type Severity Reaction Status Date / Time gluten Allergy Diarrhea Verified 03/15/23 14:17 nut - unspecified AdvReac Unknown Diverticulo Verified 03/30/23 02:30 sis Social History Smoking Status: Never smoker ROS ROS ED ROS Narrative Past medical history: Reviewed Medications: Reviewed Social history: Noncontributory Review of systems: General: No fever ENT: No upper airway congestion, normal voice Neck: No neck pain Cardiovascular: No chest pain Respiratory: No shortness of breath or cough Gastrointestinal: Epigastric pain as in HPI Genitourinary: No dysuria Musculoskeletal: Denies myalgias no difficulty with ambulation Skin: No rash Neurological: No memory loss, confusion or any focal weakness EXAM Physical Exam Narrative Exam Narrative: Physical exam General: Well nourished, Well developed, No Acute Distress Head: Normocephalic, Atraumatic ENT: Moist mucous membranes Neck: Supple, Nontender, No lymphadenopathy Cardiovascular: Regular rate, Regular rhythm Respiratory: No distress, CTA bilaterally Abdomen: Soft, there is epigastric tenderness to palpation. No guarding or rebound. Negative Mora's and no significant right upper quadrant pain. No pain at McBurney's or any lower abdominal pain at this time. Back: Nontender, Normal Inspection. Negative for: CVA tenderness Extremities: Nontender, No edema Skin: Normal color, No rash Const Vital Signs: 03/30/23 02:24 Temperature 97.6 F L Temperature Source Oral Pulse Rate 77 Respiratory Rate 18 Blood Pressure 192/74 H Blood Pressure Mean 113 Pulse Ox 98 Oxygen Delivery Method Room Air MDM MDM MDM Narrative Medical decision making narrative: Patient has mild elevation of the lipase however this does not meet criteria for acute pancreatitis. She is found to have a gallstone in the neck of the gallbladder, per radiology there could be acute cholecystitis however patient has a normal white count she is significantly improved after analgesia and she has a negative Mora's I doubt this is cholecystitis I think this is chronic changes from the gallstone. Patient will be referred to surgery, she is advised on diet and otherwise if anything worsen she is to return she understands that. Lab Data Labs: Laboratory Results - last 24 hr 03/30/23 02:30 WBC 10.4 RBC 4.74 Hgb 14.2 Hct 43.7 MCV 92.2 MCH 30.0 MCHC 32.5 RDW Std Deviation 48.6 H RDW Coeff of Carmen 14.4 Plt Count 342 MPV 9.6 Immature Gran % (Auto) 0.400 Neut % (Auto) 67.8 Lymph % (Auto) 20.7 [place] % (Auto) 7.1 Eos % (Auto) 3.3 Baso % (Auto) 0.7 Absolute Neuts (auto) 7.0 Absolute Lymphs (auto) 2.14 Nucleated RBC % 0 Sodium 140 Potassium 3.7 Chloride 109 H Carbon Dioxide 27.0 Anion Gap 4 L BUN 29 H Creatinine 1.14 H Estim Creat Clear Calc 29.57 Est GFR (MDRD) Af Amer 58 L Est GFR (MDRD) Non-Af 48 L BUN/Creatinine Ratio 25.4 H Glucose 123 H Calcium 9.6 Total Bilirubin 0.20 AST 21 ALT 27 Alkaline Phosphatase 122 H Total Protein 7.1 Albumin 4.0 Globulin 3.1 Albumin/Globulin Ratio 1.3 Lipase 77 H Radiography Diagnostic Testing: Clinical Impression(s) from Imaging Studies Abdomen/Pelvis CT 03/30/23 02:33 IMPRESSION: 1. Increased distention of the gallbladder with persistent large stone deep in the gallbladder neck, suspicion of slight gallbladder wall thickening and surrounding haziness. Suspicious for acute cholecystitis in the appropriate clinical setting. Consider ultrasound if it is thought to be indicated. 2. Moderate diverticulosis, no evidence of acute diverticulitis. Cannot exclude mild multifocal colitis but it is not convincing. This is a limited exam for colon screening for neoplasm with multiple collapsed bowel segments. 3. Appendectomy. 4. Postoperative spine changes. Electronically Signed: Rosemary Verduzco MD at 3:37 EDT , Discharge Plan Triage Chief Complaint: Abd Pain ED Provider: Chris He Dx/Rx/DC Orders Clinical Impression: Gallstone, Abdominal pain Instructions: What Are Gallstones Prescriptions: New hydrocodone-acetaminophen 5-325 mg tablet 1 tab PO Q6H 3 Days Qty: 12 0RF ondansetron 4 mg tablet,disintegrating 4 mg PO Q8H PRN PRN (Reason: Nausea) Qty: 10 0RF No Action hydrocortisone acetate [Anusol-HC] 25 mg suppository 25 mg DC TID PRN (Reason: hemorrhoids) Qty: 24 0RF oxycodone 5 mg tablet 5 mg PO multivitamin [Multiple Vitamins] 1 EACH tablet 1 ea PO DAILY cholecalciferol (vitamin D3) [D3-2000] 2,000 UNIT capsule 2,000 unit PO DAILY omega-3 fatty acids-fish oil [Fish Oil] 1 EACH capsule 1 ea PO DAILY amoxicillin-pot clavulanate 875-125 mg tablet 1 tab PO BID Qty: 20 0RF ondansetron 4 mg tablet,disintegrating 4 mg PO Q8H PRN PRN (Reason: Nausea) Qty: 14 0RF Primary Care Provider: Jillian Canada Referrals: Jillian Canada DO [Primary Care Provider] - Chadwick English MD [Med Staff - Active Staff] - 3-5 Days Disposition Disposition: Home, Self Care
[2023-03-30 02:45] LABS: Absolute Lymphocyte Count 2.14 X10^3/uL (0.83-4.51); Basophil# 0.07 X10^3/uL; Basophil% 0.7 % (0-1); Eosinophil# 0.34 X10^3/uL; Eosinophils% 3.3 % (0-5); Hematocrit 43.7 % (37-47); Hemoglobin 14.2 g/dL (12.0-15.0); Lymphocyte # 2.14 X10^3/ul (0.83-4.51); Lymphocyte % 20.7 % (19-41); Mean Corp Hgb Conc 32.5 g/dL (32-36); Mean Corpuscular Volume 92.2 fL (81-99); Mean Platelet Vol. 9.6 fl (6.2-12.0); Monocyte# 0.74 X10^3/uL; Monocyte% 7.1 % (0-10); NRBC Flagged by Analyzer 0 % (0-5); Neutrophil # 7.02 X10^3/uL (2.7-7.7); Neutrophil % 67.8 % (47-70); Platelet Count 342 K/mm3 (150-450); RBC Distribution Width CV 14.4 % (11.6-14.6); RBC Distribution Width SD 48.6 fl (35.1-43.9); Red Blood Count 4.74 M/mm3 (4.2-5.4); White Blood Count 10.4 K/mm3 (4.4-11.0)
[2023-03-30] MEDS: Morphine 4 MG/ML Syringe IV (03:00)
[2023-03-30] MEDS: 0.9% Normal Saline 1,000 ML 1000 ML IV (03:00)
[2023-03-30] MEDS: Ondansetron 4 MG/2 ML Vial IV (03:00)
[2023-03-30 03:02] LABS: ALB/GLOB Ratio 1.3 RATIO (0.9-2.4); AST(SGOT) 21 U/L (15-37); Alanine Aminotransfer ALT/SGPT 27 U/L (13-56); Alkaline Phosphatase 122 U/L (45-117); Anion Gap 4 (5-15); BUN 29 mg/dL (7-18); BUN/Creat Ratio 25.4 RATIO (10-20); Calcium,Total 9.6 mg/dL (8.5-10.1); Chloride 109 mmol/L (98-107); Creatinine, Serum 1.14 mg/dL (0.55-1.02); EST Glomerular Filtration Rate 48 mL/min (>60); Est Glom Filt Rate - Afr Amer 58 mL/min (>60); Estimated Creatinine Clearance 29.57 ml/min; Globulin 3.1 g/dL (2.2-4.2); Glucose 123 mg/dL (74-106); Lipase 77 U/L (13-75); Potassium 3.7 mmol/L (3.5-5.1); Protein, Total 7.1 g/dL (6.4-8.2); Sodium Level 140 mmol/L (136-145)
[2023-03-30] MEDS: Famotidine 200 MG/20 ML MDV 20 MG in 0.9% Normal Saline (Pres. free 8 ML 300 MG IV (03:22)
[2023-03-30] MEDS: Mag Hydrox/Al Hydrox/Simeth 30 ML UDC PO (03:34)
[2023-03-30 04:27] VITALS: BP 134/68; PULSE 78; RESP 18; O2SAT 98
== END 2023-03-30 04:29 | disposition home or self-care (01) ==
PROVIDERS: Emergency Provider Emergency Medicine; PCP Internal Medicine; Visit Provider Emergency Medicine
DX: K80.20 Calculus of gallbladder without cholecystitis without obstruction (principal); Z79.899 Other long term (current) drug therapy; Z87.19 Personal history of other diseases of the digestive system
CPT/HCPCS: 74176; 80053; 83690; 85025; 96361; 96374; 96375; 99284; J7030; A4216; J2405; J3490

== ENCOUNTER 2023-04-02 07:49 | Inpatient (IN) | payer MEDICARE, SELFPAY ==
[2023-04-02 07:50] VITALS: BP 180/97; PULSE 94; RESP 16; TEMP 36.3; O2SAT 96; BMI 28.9
--- NOTE | 2023-04-02 08:10 | US_ITS ---
STUDY: ABDOMINAL ULTRASOUND - RIGHT UPPER QUADRANT REASON FOR VISIT: Female, 82 years old right upper quadrant pain. TECHNIQUE: Ultrasound evaluation of the right upper quadrant was performed with real-time and static ho-scale imaging. TECHNICAL QUALITY: Adequate. COMPARISON: Comparison is made with prior ultrasound examination of November 07, [address] scan dated March 30, 2023. FINDINGS: Liver: The liver measures 15.4 cm. There is a heterogeneous echogenicity of the liver. The bile ducts are within normal limits. There is hepatic color flow. The direction of portal flow is hepatopetal. There is no demonstrated mass lesion. Gallbladder: Normal distended gallbladder. The gallbladder wall is thickened and measures 5 mm. There is a positive sonographic Mora''s sign. There is no pericholecystic fluid. There is a solitary gallstone in the neck of the gallbladder. Dense material is seen within the gallbladder lumen suggestive of sludge. Common Bile Duct (C.B.D.): The common bile duct is dilated and measures 9 mm. Pancreas: Normal size of the head, body and tail of the pancreas. There is normal echogenicity of the pancreas. The 1.6 cm x 1.6 cm x 0.7 cm hypoechoic nodule in the body of the pancreas. Right Kidney: Normal size of the right kidney. The right kidney measures 10.4 cm x 5.2 cm x 5.2 cm. Normal renal cortex. The right cortex measures 1.7 cm. Multiple cysts are seen. The largest measures 4.1 cm x 3.9 cm x 3 cm and this is in the lower pole. There is no right hydronephrosis. US/Gallbladder IMPRESSION: Solitary gallstone in the neck of the gallbladder with sludge seen throughout the gallbladder lumen and thickened gallbladder wall. Acute cholecystitis should be ruled out. Dilated common bile duct. Right renal cysts. There is a 1.6 cm x 1.6 cm x 0.7 cm hypoechoic density in the body of the pancreas. Electronically Signed: Az Sharma MD at 9:47 EDT ,
--- NOTE | 2023-04-02 08:11 | EDS_ITS ---
HPI HPI - GI History of Present Illness Chief Complaint: Abd Pain Informant: patient Narrative Narrative: Continuous abdominal pain for the past 3 days. Patient was seen here near the onset, told she had a gallstone and to follow-up with surgery, she has been taking the prescribed hydrocodone but the pain has been unrelenting, worsening, especially after eating. Nausea. No fevers, chills, confusion, jaundice, pruritus. Pain radiates into her mid back. No other new symptoms. Additionally states she was diagnosed with diverticulitis about 3 weeks ago that was treated. She has occasional twinges of lower abdominal pain but none in the last 3 days and none right now. [facility] Medical History Right hamstring injury Home Medications cholecalciferol (vitamin D3) 50 mcg (2,000 unit) capsule (D3-2000) 2,000 unit PO DAILY supplement 10/06/16 [History Last Taken 08/07/20] multivitamin (Multiple Vitamins tablet) 1 ea PO DAILY supplement 10/06/16 [History Last Taken 08/07/20] omega-3 fatty acids-fish oil 340 mg-1,000 mg capsule (Fish Oil) 1 ea PO DAILY supplement 01/16/18 [History Last Taken 08/07/20] hydrocortisone acetate 25 mg rectal suppository (Anusol-HC) 25 mg SD TID PRN hemorrhoids #24 ea 11/25/21 [Rx Last Taken Unknown] oxycodone 5 mg tablet 5 mg PO 05/03/22 [History Last Taken Unknown] amoxicillin 875 mg-potassium clavulanate 125 mg tablet 1 tab PO BID #20 tabs 03/15/23 [Rx Last Taken Unknown] ondansetron 4 mg disintegrating tablet 4 mg PO Q8H PRN PRN Nausea #14 tabs 03/15/23 [Rx Last Taken Unknown] hydrocodone-acetaminophen 5-325mg 5mg-325mg 1 tab PO Q6H 3 days #12 TABLETS 03/30/23 [Rx Last Taken Unknown] ondansetron 4 mg disintegrating tablet 4 mg PO Q8H PRN PRN Nausea #10 tabs 03/30/23 [Rx Last Taken Unknown] Allergy/AdvReac Type Severity Reaction Status Date / Time gluten Allergy Diarrhea Verified 04/02/23 07:52 nut - unspecified AdvReac Unknown Diverticulo Verified 04/02/23 07:52 sis Social History Smoking Status: Never smoker ROS ROS ED Constitutional Constitutional ED: Denies chills or fever(s) Eyes Eyes: Denies change in vision or diplopia ENT ENT ED: Denies rhinorrhea or sore throat Cardiovascular Cardiovascular: Denies chest pain or palpitations Respiratory/Chest Respiratory/Chest: Denies cough or dyspnea Gastrointestinal Gastrointestinal: Reports abdominal pain and nausea; Denies diarrhea or vomiting Genitourinary Genitourinary ED: Denies dysuria or hematuria Musculoskeletal Musculoskeletal: Reports back pain; Denies neck pain Integumentary Denies abscess or rash Neurologic Neurologic: Denies headache(s), paresthesias or weakness Psychiatric Psychiatric: Denies anxiety or suicidal thoughts EXAM Physical Exam Const Vital Signs: 04/02/23 07:50 Temperature 97.4 F L Temperature Source Temporal Pulse Rate 94 Respiratory Rate 16 Blood Pressure 180/97 H Blood Pressure Mean 124 Pulse Ox 96 Oxygen Delivery Method Room Air Positive well nourished and well developed General Appearance ED: well developed and NAD HEENT Reports moist mucous membranes normocephalic and atraumatic Eyes PERRL and EOMs intact bilaterally Neck full ROM and supple Resp normal respiratory effort and clear to auscultation bilaterally Cardio regular rate, regular rhythm and no murmurs GI non-distended GI Narrative: Tender right upper quadrant and epigastrium otherwise benign abdomen no guarding or rebound Auscultation: normoactive bowel sounds Palpation: soft Back/Spine no CVA tenderness General Back: other FROM Extremity normal to inspection General Extremety ED: Negative for edema, pulses abnormal or tenderness General Extremity: Negative for edema or pulses abnormal Neuro oriented x3, CN's II-XII intact bilaterally and no sensory deficits noted Sensorium / Orientation: awake and alert Motor Exam: strength 5/5 throughout Skin no rashes or lesions noted and no wounds MDM MDM MDM Narrative Medical decision making narrative: I reviewed the patient's prior ED visit as well as her CT. Ultrasound is av ailable now so we obtained an ultrasound as well as repeating her labs. She still has lack of a significant leukocytosis and liver enzyme elevations, her lipase is now normal. Ultrasound images and report reviewed which I agree with, consistent with early acute cholecystitis, which her symptoms are consistent with. Discussed with Dr. Moore who will admit, Mary given here in the ED as well as symptom control, she is doing well and clinically stable. Lab Data Attestation: I reviewed the patient's lab results. Labs: Laboratory Results - last 24 hr 04/02/23 08:25 WBC 8.2 RBC 4.31 Hgb 13.2 Hct 39.5 MCV 91.6 MCH 30.6 MCHC 33.4 RDW Std Deviation 49.1 H RDW Coeff of Carmen 14.5 Plt Count 280 MPV 9.6 Immature Gran % (Auto) 0.200 Neut % (Auto) 76.1 H Lymph % (Auto) 12.6 L [place] % (Auto) 8.3 Eos % (Auto) 2.3 Baso % (Auto) 0.5 Absolute Neuts (auto) 6.3 Absolute Lymphs (auto) 1.04 Nucleated RBC % 0 Sodium 139 Potassium 3.7 Chloride 106 Carbon Dioxide 30.0 Anion Gap 3 L BUN 15 Creatinine 0.77 Estim Creat Clear Calc 33.71 Est GFR (MDRD) Af Amer 92 Est GFR (MDRD) Non-Af 76 BUN/Creatinine Ratio 19.5 Glucose 105 Calcium 9.1 Total Bilirubin 0.50 AST 16 ALT 22 Alkaline Phosphatase 98 Total Protein 6.6 Albumin 3.4 Globulin 3.2 Albumin/Globulin Ratio 1.1 Lipase 34 Radiography Diagnostic Testing: Clinical Impression(s) from Imaging Studies Gallbladder Ultrasound 04/02/23 08:10 IMPRESSION: Solitary gallstone in the neck of the gallbladder with sludge seen throughout the gallbladder lumen and thickened gallbladder wall. Acute cholecystitis should be ruled out. Dilated common bile duct. Right renal cysts. There is a 1.6 cm x 1.6 cm x 0.7 cm hypoechoic density in the body of the pancreas. Electronically Signed: zA Sharma MD at 9:47 EDT , Management Discussion w/another healthcare provider: Insulator Tester Discharge Plan Triage Chief Complaint: Abd Pain ED Provider: Esvin Manning Dx/Rx/DC Orders Clinical Impression: Acute calculous cholecystitis Prescriptions: No Action hydrocortisone acetate [Anusol-HC] 25 mg suppository 25 mg SD TID PRN (Reason: hemorrhoids) Qty: 24 0RF oxycodone 5 mg tablet 5 mg PO multivitamin [Multiple Vitamins] 1 EACH tablet 1 ea PO DAILY cholecalciferol (vitamin D3) [D3-2000] 2,000 UNIT capsule 2,000 unit PO DAILY omega-3 fatty acids-fish oil [Fish Oil] 1 EACH capsule 1 ea PO DAILY amoxicillin-pot clavulanate 875-125 mg tablet 1 tab PO BID Qty: 20 0RF ondansetron 4 mg tablet,disintegrating 4 mg PO Q8H PRN PRN (Reason: Nausea) Qty: 14 0RF hydrocodone-acetaminophen 5-325 mg tablet 1 tab PO Q6H 3 Days Qty: 12 0RF ondansetron 4 mg tablet,disintegrating 4 mg PO Q8H PRN PRN (Reason: Nausea) Qty: 10 0RF Primary Care Provider: Jillian Canada Referrals: Jillian Canada DO [Primary Care Provider] - Disposition Disposition: Acute Care Hospital [facility]
[2023-04-02] MEDS: Morphine 2 MG/ML Syringe IV (08:21)
[2023-04-02] MEDS: 0.9% Normal Saline 1,000 ML 125 ML IV (08:21)
[2023-04-02] MEDS: Ondansetron 4 MG/2 ML Vial IV (08:21)
[2023-04-02 08:30] LABS: Absolute Lymphocyte Count 1.04 X10^3/uL (0.83-4.51); Absolute Neutrophil Count 6.3 X10^3/uL (2.0-7.7); Basophil# 0.04 X10^3/uL; Basophil% 0.5 % (0-1); Eosinophil# 0.19 X10^3/uL; Eosinophils% 2.3 % (0-5); Hematocrit 39.5 % (37-47); Hemoglobin 13.2 g/dL (12.0-15.0); Lymphocyte # 1.04 X10^3/ul (0.83-4.51); Lymphocyte % 12.6 % (19-41); Mean Corp Hgb Conc 33.4 g/dL (32-36); Mean Corpuscular Hgb 30.6 pg (27.0-32.0); Mean Corpuscular Volume 91.6 fL (81-99); Mean Platelet Vol. 9.6 fl (6.2-12.0); Monocyte# 0.68 X10^3/uL; Monocyte% 8.3 % (0-10); NRBC Flagged by Analyzer 0 % (0-5); Neutrophil # 6.27 X10^3/uL (2.7-7.7); Neutrophil % 76.1 % (47-70); Platelet Count 280 K/mm3 (150-450); RBC Distribution Width CV 14.5 % (11.6-14.6); RBC Distribution Width SD 49.1 fl (35.1-43.9); Red Blood Count 4.31 M/mm3 (4.2-5.4); White Blood Count 8.2 K/mm3 (4.4-11.0)
[2023-04-02 08:46] LABS: ALB/GLOB Ratio 1.1 RATIO (0.9-2.4); AST(SGOT) 16 U/L (15-37); Alanine Aminotransfer ALT/SGPT 22 U/L (13-56); Albumin, Serum 3.4 g/dL (3.2-5.0); Alkaline Phosphatase 98 U/L (45-117); Anion Gap 3 (5-15); BUN 15 mg/dL (7-18); BUN/Creat Ratio 19.5 RATIO (10-20); Calcium,Total 9.1 mg/dL (8.5-10.1); Chloride 106 mmol/L (98-107); Creatinine, Serum 0.77 mg/dL (0.55-1.02); EST Glomerular Filtration Rate 76 mL/min (>60); Est Glom Filt Rate - Afr Amer 92 mL/min (>60); Estimated Creatinine Clearance 33.71 ml/min; Globulin 3.2 g/dL (2.2-4.2); Glucose 105 mg/dL (74-106); Lipase 34 U/L (13-75); Potassium 3.7 mmol/L (3.5-5.1); Protein, Total 6.6 g/dL (6.4-8.2); Sodium Level 139 mmol/L (136-145)
[2023-04-02 12:02] VITALS: BP 149/65; PULSE 74; RESP 18; TEMP 36.4; O2SAT 97
[2023-04-02 12:22] VITALS: BMI 29.1
[2023-04-02 12:31] VITALS: BP 166/77; PULSE 73; RESP 18; TEMP 36.9; O2SAT 99
--- NOTE | 2023-04-02 12:49 | HP.PCM_ITS ---
HPI - General General Date of Admission: 04/02/23 HPI Narrative DUANE EDUARDO, is a 82 F who presents to [facility] with complaints of upper abdominal discomfort. She states that this began evening of 03/29/2023 and persisted into the pumper gauger hours of 03/30/2023. At that time she came to [facility] ER for the first visit and was diagnosed with cholelithiasis. A referral was made to surgery, but her pain relapsed after her ER discharge and she states for the past 2 days it has been present across her upper abdomen and worse after eating. It is associated with some nausea but no vomiting, no fever, no chills. She denies any radiation of this discomfort. She denies any prior experience of this discomfort. Patient states that she was recently diagnosed with diverticulitis approximately 2 weeks ago. She confirms that this discomfort of her lower abdomen has resolved. Patient has a history of pancreatitis which she states was present approximately 5 years ago. She initially believed that her pancreatitis was back when she began feeling the above symptoms. She is unable to recall any cause given for her pancreatitis. Patient's ER work-up here is notable for CBC without leukocytosis but mild left shift is present. There is no elevation of the LFTs and bilirubin is within normal limits. Lipase is also within normal limits. Right upper quadrant ultrasound was performed and shows a solitary gallstone in the neck of the gallbladder along with gallbladder wall thickening. Common bile duct is red and is dilated as well. Radiology report of the above was concerning for possible cholecystitis. [facility] Medical History Blood disorder Cirrhosis Hiatal hernia History of immunosuppression therapy Right hamstring injury Home Medications cholecalciferol (vitamin D3) 50 mcg (2,000 unit) capsule (D3-2000) 2,000 unit PO DAILY supplement 10/06/16 [History Last Taken 08/07/20] multivitamin (Multiple Vitamins tablet) 1 ea PO DAILY supplement 10/06/16 [History Last Taken 08/07/20] omega-3 fatty acids-fish oil 340 mg-1,000 mg capsule (Fish Oil) 1 ea PO DAILY supplement 01/16/18 [History Last Taken 08/07/20] hydrocortisone acetate 25 mg rectal suppository (Anusol-HC) 25 mg RI TID PRN hemorrhoids #24 ea 11/25/21 [Rx Last Taken Unknown] oxycodone 5 mg tablet 5 mg PO 05/03/22 [History Last Taken Unknown] amoxicillin 875 mg-potassium clavulanate 125 mg tablet 1 tab PO BID #20 tabs 03/15/23 [Rx Last Taken Unknown] ondansetron 4 mg disintegrating tablet 4 mg PO Q8H PRN PRN Nausea #14 tabs 03/15/23 [Rx Last Taken Unknown] hydrocodone-acetaminophen 5-325mg 5mg-325mg 1 tab PO Q6H 3 days #12 TABLETS 03/30/23 [Rx Last Taken Unknown] ondansetron 4 mg disintegrating tablet 4 mg PO Q8H PRN PRN Nausea #10 tabs 03/30/23 [Rx Last Taken Unknown] Allergy/AdvReac Type Severity Reaction Status Date / Time gluten Allergy Diarrhea Verified 04/02/23 07:52 nut - unspecified AdvReac Unknown Diverticulo Verified 04/02/23 07:52 sis Social History Smoking Status: Never smoker Vital Signs Vital Signs Vital Signs: 04/02/23 07:50 04/02/23 12:02 04/02/23 12:31 Temperature 97.4 F L 97.5 F L 98.4 F Temperature Source Temporal Temporal Oral Pulse Rate 94 74 73 Respiratory Rate 16 18 18 Blood Pressure 180/97 H 149/65 H 166/77 H Blood Pressure Mean 124 93 106 Blood Pressure Source Monitor Blood Pressure Position Supine Blood Pressure Location Right Arm Pulse Ox 96 97 99 Oxygen Delivery Method Room Air Room Air Room Air Weight Weight: 159 lb 4.8 oz Body Mass Index (BMI) 29.1 Physical Exam Const alert, oriented x3 and well nourished Resp normal respiratory effort GI GI Narrative: Laparoscopic, scars consistent with prior appendectomy. Nondistended, soft, minimally tender to palpation at first but focally tender in the right upper quadrant with mildly positive Mora sign Results Lab / Micro Data 04/02/23 08:25 04/02/23 08:25 Labs: Laboratory Results - last 24 hr 04/02/23 08:25: WBC 8.2, RBC 4.31, Hgb 13.2, Hct 39.5, MCV 91.6, MCH 30.6, MCHC 33.4, RDW Std Deviation 49.1 H, RDW Coeff of Carmen 14.5, Plt Count 280, MPV 9.6, Immature Gran % (Auto) 0.200, Neut % (Auto) 76.1 H, Lymph % (Auto) 12.6 L, [place] % (Auto) 8.3, Eos % (Auto) 2.3, Baso % (Auto) 0.5, Absolute Neuts (auto) 6.3, Absolute Lymphs (auto) 1.04, Nucleated RBC % 0, Sodium 139, Potassium 3.7, Chloride 106, Carbon Dioxide 30.0, Anion Gap 3 L, BUN 15, Creatinine 0.77, Estim Creat Clear Calc 33.71, Est GFR (MDRD) Af Amer 92, Est GFR (MDRD) Non-Af 76, BUN/Creatinine Ratio 19.5, Glucose 105, Calcium 9.1, Total Bilirubin 0.50, AST 16, ALT 22, Alkaline Phosphatase 98, Total Protein 6.6, Albumin 3.4, Globulin 3.2, Albumin/Globulin Ratio 1.1, Lipase 34 Radiology Impression Gallbladder Ultrasound 04/02/23 08:10 IMPRESSION: Solitary gallstone in the neck of the gallbladder with sludge seen throughout the gallbladder lumen and thickened gallbladder wall. Acute cholecystitis should be ruled out. Dilated common bile duct. Right renal cysts. There is a 1.6 cm x 1.6 cm x 0.7 cm hypoechoic density in the body of the pancreas. Electronically Signed: Az Sharma MD at 9:47 EDT , Assessment & Plan Assessment/Plan (1) Acute calculous cholecystitis: PLAN: This is an 82-year-old female who presents for second time this week with complaints of right upper quadrant discomfort. Although her biochemical exam through routine laboratories is rather reassuring, she has ultrasound and exam evidence of acute cholecystitis. Therefore I have recommended that we proceed to the operating room for laparoscopic cholecystectomy with intraoperative cholangiogram. Procedure was described in detail as well as post procedure expectations. All questions were taken from both her and her . She will be admitted this evening for IV antibiotic therapy with plans to hold a diet past midnight in anticipation of the operating room tomorrow. She is started on IV Zosyn per emergency medicine and we will continue this antibiotic.
[2023-04-02 16:25] VITALS: BP 144/60; PULSE 70; RESP 16; TEMP 36.9; O2SAT 97
[2023-04-02] MEDS: 0.9% Normal Saline 1,000 ML 75 ML IV (17:47)
[2023-04-02 20:34] VITALS: BP 146/61; PULSE 64; RESP 16; TEMP 36.7; O2SAT 96
[2023-04-02 22:04] VITALS: BMI 29.1
--- NOTE | 2023-04-02 22:46 | EKG12_ITS ---
Test Reason : PRE OP Blood Pressure : / mmHG Vent. Rate : 064 BPM Atrial Rate : 064 BPM P-R Int : 134 ms QRS Dur : 086 ms QT Int : 398 ms P-R-T Axes : -12 -32 018 degrees QTc Int : 410 ms Normal sinus rhythm Left axis deviation Nonspecific T wave abnormality Abnormal ECG When compared with ECG of 13-JUN-2019 09:40, Nonspecific T wave abnormality, worse in Anterolateral leads Confirmed by ANA CRAFT, PORTER ([id number]), web editor AILEEN LANGE ([id number]) on 04/03/2023 2:34:58 PM Referred By: ADRIANA Confirmed By:PORTER PEREZ MD
[2023-04-03] VITALS (12 sets, daily range): BP systolic 142–187; BP diastolic 62–86; PULSE 66–99; RESP 16–18; TEMP 36–36.9; O2SAT 93–99; BMI 31.5
[2023-04-03] MEDS: oxyCODONE 5 MG Tablet PO ×2 (02:03→18:12)
[2023-04-03 06:52] LABS: Absolute Lymphocyte Count 1.18 X10^3/uL (0.83-4.51); Absolute Neutrophil Count 4.8 X10^3/uL (2.0-7.7); Basophil# 0.05 X10^3/uL; Basophil% 0.7 % (0-1); Eosinophil# 0.31 X10^3/uL; Eosinophils% 4.5 % (0-5); Hematocrit 39.6 % (37-47); Lymphocyte # 1.18 X10^3/ul (0.83-4.51); Mean Corp Hgb Conc 32.8 g/dL (32-36); Mean Corpuscular Hgb 30.5 pg (27.0-32.0); Mean Platelet Vol. 9.5 fl (6.2-12.0); Monocyte# 0.63 X10^3/uL; Monocyte% 9.1 % (0-10); NRBC Flagged by Analyzer 0 % (0-5); Neutrophil # 4.76 X10^3/uL (2.7-7.7); Neutrophil % 68.4 % (47-70); Platelet Count 299 K/mm3 (150-450); RBC Distribution Width CV 14.3 % (11.6-14.6); RBC Distribution Width SD 48.9 fl (35.1-43.9); Red Blood Count 4.26 M/mm3 (4.2-5.4)
[2023-04-03 07:27] LABS: AST(SGOT) 24 U/L (15-37); Alanine Aminotransfer ALT/SGPT 31 U/L (13-56); Albumin, Serum 3.2 g/dL (3.2-5.0); Alkaline Phosphatase 113 U/L (45-117); Anion Gap 4 (5-15); BUN 11 mg/dL (7-18); BUN/Creat Ratio 13.9 RATIO (10-20); Chloride 107 mmol/L (98-107); Creatinine, Serum 0.79 mg/dL (0.55-1.02); EST Glomerular Filtration Rate 74 mL/min (>60); Est Glom Filt Rate - Afr Amer 89 mL/min (>60); Estimated Creatinine Clearance 33.71 ml/min; Globulin 3.3 g/dL (2.2-4.2); Glucose 91 mg/dL (74-106); Potassium 3.7 mmol/L (3.5-5.1); Protein, Total 6.5 g/dL (6.4-8.2); Sodium Level 139 mmol/L (136-145)
--- NOTE | 2023-04-03 09:06 | NURSING ---
message left with Eloisa Merchant to see pt
[2023-04-03] MEDS: LORazepam 0.5 MG Tablet PO (09:45)
[2023-04-03] MEDS: 0.9% Normal Saline 1,000 ML 75 ML IV (09:45)
[2023-04-03] MEDS: Lactated Ringers 1,000 ML 15 ML IV ×2 (11:51→15:35)
--- NOTE | 2023-04-03 11:56 | PN.SURG_ITS ---
Subjective Subjective Patient seen and examined during AM rounds. She reports no abdominal discomfort this morning. She confirms that she has been n.p.o. since midnight. She denies any questions related to her procedure. Objective Data Objective Data Vital Signs: Vital Signs Temp Pulse Resp BP Pulse Ox O2 Del Method 98.2 F 82 18 158/80 H 98 Room Air 04/03/23 11:07 04/03/23 11:07 04/03/23 11:07 04/03/23 11:07 04/03/23 11:07 04/03/23 11:07 Oxygen Delivery Method Room Air Weight: 172 lb 6.424 oz Body Mass Index (BMI) 31.5 Intake & Output: Intake and Output for Last 24 Hours 04/01/23 04/02/23 04/03/23 23:59 23:59 23:59 Intake Total 1680.00 / 1680.00 1261.75 / 1261.75 Balance 1680.00 / 1680.00 1261.75 / 1261.75 Lab / Micro Data 04/03/23 06:25 04/03/23 06:25 Labs: Laboratory Results - last 24 hr 04/03/23 06:25: WBC 7.0, RBC 4.26, Hgb 13.0, Hct 39.6, MCV 93.0, MCH 30.5, MCHC 32.8, RDW Std Deviation 48.9 H, RDW Coeff of Carmen 14.3, Plt Count 299, MPV 9.5, Immature Gran % (Auto) 0.300, Neut % (Auto) 68.4, Lymph % (Auto) 17.0 L, [place] % (Auto) 9.1, Eos % (Auto) 4.5, Baso % (Auto) 0.7, Absolute Neuts (auto) 4.8, A bsolute Lymphs (auto) 1.18, Nucleated RBC % 0, Sodium 139, Potassium 3.7, Chloride 107, Carbon Dioxide 28.0, Anion Gap 4 L, BUN 11, Creatinine 0.79, Estim Creat Clear Calc 33.71, Est GFR (MDRD) Af Amer 89, Est GFR (MDRD) Non-Af 74, BUN/Creatinine Ratio 13.9, Glucose 91, Calcium 9.0, Total Bilirubin 0.50, AST 24, ALT 31, Alkaline Phosphatase 113, Total Protein 6.5, Albumin 3.2, Globulin 3.3, Albumin/Globulin Ratio 1.0 Physical Exam Const oriented x3 and no apparent distress Resp normal respiratory effort GI GI Narrative: Nondistended, soft, focal subcostal tenderness present. Assessment & Plan Assessment/Plan (1) Acute calculous cholecystitis: PLAN: This is an 82-year-old female who is admitted for probable early acute cholecystitis. She has normalized her CBC in terms of the mild left shift. She reports improvement in her abdominal discomfort. Mild tenderness is still present on exam. No abnormalities exist in her CMP, but ductal dilation was noted with ultrasound. Therefore plan is to proceed to the operating room for laparoscopic cholecystectomy with intraoperative cholangiogram later today. Patient denies any questions related to the procedure. Charges/Coding Visit Charges Inpatient E&M: 60629 Subs Hosp L2
--- NOTE | 2023-04-03 12:03 | CASEMGMT ---
RN CM NOTE: To room to complete MALIK. Pt out of room @ OR at this time. Nguyễn HAASN RN CM
--- NOTE | 2023-04-03 12:30 | RAD_ITS ---
STUDY: INTRAOPERATIVE CHOLANGIOGRAM. REASON FOR EXAM: Female, 82 years old. ACUTE CHOLECYSTITIS. Laparoscopic cholecystectomy. FLUOROSCOPY TIME (if supplied): ( 27 seconds ) minutes/seconds. 8.41 mGy TECHNIQUE: An intraoperative cholangiogram was performed by the surgeon. Imaging was submitted. COMPARISON: None. FINDINGS: Mild degree of dilatation of the common bile duct. No intraluminal filling defect is seen. There is free flow of contrast into the duodenum. RAD/Cholangiogram/ O R,Initial IMPRESSION: Mildly dilated common bile duct. No intraluminal filling defect is seen. There is free flow of contrast into the duodenum. Electronically Signed: Az Sharma MD at 14:46 EDT ,
[2023-04-03] MEDS: Bupivacaine 0.5% PF 10 ML VIAL (13:00)
--- NOTE | 2023-04-03 13:10 | CHAPLAIN ---
Type of Pastoral Visit _x__ Initial Visit ___ Follow-up Visit ___ On-call Visit ___ General Patient Visit ___ Spiritual Assessment ___ Family Conference ___ Bereavement ___ Rapid Response ___ Code Blue ___ Other (describe below) Pastoral Care Referral From _x__ Patient ___ Family _x__ Nurse ___ Physician ___ Patient Accounts Coordinator ___ Performance Tester ___ Other (describe below) Sacrament/Intervention _x__ Active listening ___ Anointing ___ Yarsanism ___ Bereavement ___ Communion _x__ Raquel exploration ___ _x__ Life review _x__ Prayer ___ Reconciliation ___ Sacrament of Sick ___ Supportive presence ___ Wedding ___ Other (describe below) Pastoral Comments RN notified this operations manager station of patient request for prayer before surgery; met with patient and spouse; casual conversation and brief life review given; pt is active in her christian and has supportive family and friends; pt is offered presence and prayer
--- NOTE | 2023-04-03 13:30 | GALL_PTH ---
PATIENT: DUANE EDUARDO LOC: MS3 U#:[id number] AGE/SX: 82/F ROOM: NV325 RE04/03/[address]: Dr. Chadwick English MD : [id number] BED: 1 DIS: 04/04/2023 SPEC #: [id number] RECD: 04/03/23 15:36 STATUS: LI KRAMER #: [id number] ZAYRA: 04/03/23 13:[address]: Chadwick English DEPT: SURGICAL PATHOLOGY RECD BY: Gilma Alfaro ENTERED: 04/04/23 08:40 SP TYPE: DONNIE LINARES DR: Dr. Jillian Canada DO Tissues: Gallbladder, NOS Procedures: Surgery Specimen Level III HEADER OPERATION: Laparoscopic, cholecystectomy with IOC PRE-OP DIAGNOSIS: Acute calculous cholecystitis TISSUE SUBMITTED: Gallbladder MICROSCOPIC DIAGNOSIS Gallbladder, cholecystectomy: Acute and chronic cholecystitis and cholelithiasis. AM:rosmery 04/07/2023 MICROSCOPIC DESCRIPTION Slides are reviewed. GROSS DESCRIPTION Received is one container labeled with the patient's name and designated gallbladder. The specimen consists of a gallbladder measuring 8.0 cm in length and up to 4.0 cm in diameter. The external surface is pink-barrios, smooth and glistening for the most part. Focally it is granular, hemorrhagic and contains cautery artifact. The gallbladder contains bile and a barrios stone measuring 4.0 x 2.0 x 2.0cm. The mucosa is bile-stained and without any mass lesions. The gallbladder wall measures up to 0.5 cm in thickness. Chest Painting And Sealing Supervisor sections from the gallbladder and the cystic duct are submitted in one cassette. / AM:rosmery 04/04/2023 TC:2 CPT: 56665
--- NOTE | 2023-04-03 14:52 | PCM.OPRPT ---
Report of Operation Date of Procedure: 04/03/23 Pre-Operative Diagnosis: Acute cholecystitis Post-Operative Diagnosis: Acute on chronic cholecystitis with common bile duct dilatation Surgery/Procedure Performed:: Laparoscopic cholecystectomy with intraoperative cholangiogram Description of Surgical Findings:: ? Distended gallbladder, tense with edema and difficult to deform with graspers due to the presence of large gallbladder neck stone ? Dilated common bile duct without filling defect ? 2 cm capsular tear of the liver in segment 5 with mild oozing responding to manual pressure and application of hemostatic agent (Surgicel snow) Surgeon: Chadwick English drapery hemmer automatic: Dorina Rose drapery hemmer automatic: Asha Gutierrez Type of Anesthesia: General/Supplemental Anesthesiologist: Jackson Shah Specimen's removed: gallbladder Drains: none Estimated Blood Loss (mL): 50 Description of Procedure: After proper identification in the preoperative holding area the patient was brought to the operating room where she was positioned supine on the operating room table. Preoperatively SCDs were placed and antibiotics were administered (an interval dose of Ancef was given although patient was on scheduled IV Zosyn). General anesthesia was then induced. Patient's abdomen was prepped and draped in usual sterile fashion. A formal timeout was conducted to confirm both patient and the procedure. Procedure was begun with a supraumbilical incision which was extended deeply down to the level of the fascia. The fascia was elevated and incised, as well as the peritoneum. A finger sweep confirmed intraperitoneal entry and a 12 mm balloon trocar was inserted. Pneumoperitoneum was established at 15 mmHg. Laparoscopic visualization revealed adhesion of omentum to the supraumbilical port site. 3 additional trocars were placed in the epigastrium and in the right upper quadrant (3 x 5 mm). Inspection of the peritoneum revealed no inadvertent injury to the viscera below. The gallbladder was visualized with dense inflammation. The gallbladder fundus was then grasped with some difficulty due to the gallbladder edema and a large stone lodged in the gallbladder neck and was elevated cephalad. Then, using careful dissection the peritoneum was opened and the structures of the hepatocystic triangle were delineated. Once the critical view of safety was obtained, the cystic duct was singly clipped and partially divided with a ductotomy. There was immediate backflow of bile with fragments of stones. Using an Yusuf Irma clamp, a cholangiocatheter was fed into the proximal segment of the cystic duct and clamped into place. Under fluoroscopy a cholangiogram was then obtained showing a standard length cystic duct flowing into a dilated common bile duct but with unobstructed antegrade flow of contrast into the duodenum. There was also retrograde flow through the common hepatic duct into the right and left hepatic ducts. Satisfied with this result, the cholangiocatheter was withdrawn and the proximal cystic duct was sealed with clips and the cystic duct was completely transected. The same process was used for the cystic artery. A crossing each branch was also doubly clipped and sharply divided. The gallbladder was then removed from the gallbladder fossa with the use of electrocautery. This proved somewhat challenging given the clear evidence of chronic inflammation and its somewhat intrahepatic location. Because of these factors an inadvertent rent was made in the gallbladder body electrocautery resulting in local spillage of bile. This was promptly suctioned free with suction customer support representative and the plane was regained with the electrocautery. Selective electrocautery was used to obtain hemostasis in the gallbladder fossa. The gallbladder was then fully removed from the liver fossa and placed in an Endo Catch bag. Morison's pouch was irrigated and the effluent was suctioned free of the peritoneum. On reinspection of the gallbladder fossa there was some fresh clot just inferior to the fossa and on closer look I identified an approximately 2 cm crack in the liver capsule with active oozing. I placed a Surgicel snow hemostatic agent and Ray-Leanna into the abdomen. Applying the hemostatic agent to the site with pressure to the Ray-Leanna, manual traction was held to obtain hemostasis. Several other sites were cauterized on the gallbladder fossa. Inspecting the site several minutes later I confirmed that it was then hemostatic so the Surgicel snow was left in place and the Ray-Leanna was removed. Peritoneal pressures were dropped to 8 mmHg and the site was once again reinspected and it remained hemostatic so pneumoperitoneum was evacuated. The fascia of the 12 mm port site was closed with #1Vicryl in a [id number]-[id number] fashion (2 mjyncf-po-ckowb sutures were required given that this exit site required enlargement on the account of patient's large stone. A total of 20 mL of 0.5% bupivacaine plain local anesthetic was injected at the port sites for postoperative pain control. The skin of each port site was then closed in subcuticular fashion using 4-0 Monocryl. Steri-Strips and bandages were applied as dressings. Patient tolerated the procedure well without any apparent complications. On emergence from their anesthetic the patient was taken to PACU for ongoing recovery. Complications ? Mild oozing from small crack in the liver capsule just inferior and lateral to the gallbladder fossa in segment 5 of the liver Admit VTE Documentation VTE Mechan Device Prophylaxis: SCD's Procedures Digestive 40xxx-49xxx: 17528 Laparo cholecystectomy/graph
--- NOTE | 2023-04-03 15:48 | PCM.DC ---
Discharge Instructions Diet Discharge Diet: No restrictions Activity Discharge Activity: May Not Drive (No driving while using narcotic pain medication) and May Shower (Postoperative day 1) May shower in (days): 1 Ice area for (Minutes): 20 Lifting Restrictions: No lifting greater than 15 pounds for 2 weeks after surgery Dressing / Incision Call your doctor if your incision/area has: Continuous Slow Oozing, Sudden Increased Bleeding, Increased Pain/ Swelling, Increased Redness, Foul Smelling Discharge and Swelling at the incision site Call your doctor if you observe: Fever of 101 or Higher Remove Dressing in: 1 day (Please leave Steri-Strips intact until they fall off spontaneously or are taken off at your follow-up visit) Cleanse incision/area with: Soap & Water Follow Up Care Please Follow Up With: Chdawick English MD When: 7-10days postop Test Results: Test results from this visit will be discussed in further detail at your follow-up appointment, if applicable. Discharge Plan Admission Admit Date/Time: 04/03/23 15:57 Primary Reason for Your Visit: Cholecystitis and gallbladder removal Attending Provider: Chadwick English Primary Care Provider: Jillian Canada Instructions Patient Instructions: After Gallbladder Surgery, Cholecystectomy Dc Discharge Orders/Prescriptions Prescriptions: Continued hydrocortisone acetate [Anusol-HC] 25 mg suppository 25 mg [place] TID PRN (Reason: hemorrhoids) Qty: 24 0RF oxycodone 5 mg tablet 5 mg PO multivitamin [Multiple Vitamins] 1 EACH tablet 1 ea PO DAILY cholecalciferol (vitamin D3) [D3-2000] 2,000 UNIT capsule 2,000 unit PO DAILY omega-3 fatty acids-fish oil [Fish Oil] 1 EACH capsule 1 ea PO DAILY amoxicillin-pot clavulanate 875-125 mg tablet 1 tab PO BID Qty: 20 0RF ondansetron 4 mg tablet,disintegrating 4 mg PO Q8H PRN PRN (Reason: Nausea) Qty: 14 0RF hydrocodone-acetaminophen 5-325 mg tablet 1 tab PO Q6H 3 Days Qty: 12 0RF ondansetron 4 mg tablet,disintegrating 4 mg PO Q8H PRN PRN (Reason: Nausea) Qty: 10 0RF Referrals / Follow Up: Jillian Canada DO [Primary Care Provider] - Disposition Disposition (needs filled in before D/C Order can be placed): Home, Self Care
--- NOTE | 2023-04-03 15:51 | DS.PCM_ITS ---
Documented by User: Dr. Chadwick English MD 04/08/23 10:59 Providers Date of Admission: 04/03/23 Primary Care Physician: Dr. Jillian Canada DO Reason For Visit: ACUTE CHOLECYSTITIS Diagnosis Discharge Diagnosis (1) Acute calculous cholecystitis: Status: Resolved Code(s): K80.00 - Calculus of gallbladder with acute cholecystitis without obstruction Plan: This is an 82-year-old female who is admitted for probable early acute cholecystitis. She has normalized her CBC in terms of the mild left shift. She reports improvement in her abdominal discomfort. Mild tenderness is still present on exam. No abnormalities exist in her CMP, but ductal dilation was noted with ultrasound. Therefore plan is to proceed to the operating room for laparoscopic cholecystectomy with intraoperative cholangiogram later today. Patient denies any questions related to the procedure. Medications at Discharge Home Medications cholecalciferol (vitamin D3) 50 mcg (2,000 unit) capsule (D3-2000) 2,000 unit PO DAILY supplement 10/06/16 multivitamin (Multiple Vitamins tablet) 1 ea PO DAILY supplement 10/06/16 omega-3 fatty acids-fish oil 340 mg-1,000 mg capsule (Fish Oil) 1 ea PO DAILY supplement 01/16/18 hydrocortisone acetate 25 mg rectal suppository (Anusol-HC) 25 mg WI TID PRN hemorrhoids #24 ea 11/25/21 oxycodone 5 mg tablet 5 mg PO 05/03/22 amoxicillin 875 mg-potassium clavulanate 125 mg tablet 1 tab PO BID #20 tabs 03/15/23 ondansetron 4 mg disintegrating tablet 4 mg PO Q8H PRN PRN Nausea #14 tabs 03/15/23 hydrocodone-acetaminophen 5-325mg 5mg-325mg 1 tab PO Q6H 3 days #12 TABLETS 03/30/23 ondansetron 4 mg disintegrating tablet 4 mg PO Q8H PRN PRN Nausea #10 tabs 03/30/23 hydrocodone-acetaminophen 5-325mg 5mg-325mg 1 tab PO Q6H PRN pain 3 days #10 tabs 04/08/23 Hospital Course Operations cholecystecomy (Laparoscopic cholecystectomy on 04/03/2023) Summary of Care Provided Hospital Course: Patient is an 82-year-old female who is evaluated on 04/02/2023 in the ER for complaints of persistent abdominal discomfort after an initial presentation on 03/30/2023 for similar complaints. At this time, however, right upper quadrant ultrasound was performed and showed evidence of cholecystitis. Her exam was consistent with this diagnosis and, given her otherwise healthy state, I recommended laparoscopic cholecystectomy. Patient was thus admitted to the hospital the same evening and held n.p.o. past midnight. She was taken to the operating room 04/03/2023 for laparoscopic cholecystectomy with intraoperative cholangiogram. Case proceeded in an uncomplicated fashion apart from some mild oozing from a small fracture of the liver capsule. Given this slight oozing she was observed overnight postoperative day 0 in order to continue inpatient monitoring and check postoperative labs on the morning of postoperative day 1. These labs prove stable and patient was granted discharge postoperative day 1 with instructions for outpatient follow-up. Weight / BMI Weight Weight: 172 lb 6.424 oz Body Mass Index (BMI) 31.5 ABG / Lab / Microbiology Data 04/04/23 05:35 04/03/23 06:25 Laboratory: Laboratory Results - last 24 hr 04/03/23 06:25: WBC 7.0, RBC 4.26, Hgb 13.0, Hct 39.6, MCV 93.0, MCH 30.5, MCHC 32.8, RDW Std Deviation 48.9 H, RDW Coeff of Carmen 14.3, Plt Count 299, MPV 9.5, Immature Gran % (Auto) 0.300, Neut % (Auto) 68.4, Lymph % (Auto) 17.0 L, [place] % (Auto) 9.1, Eos % (Auto) 4.5, Baso % (Auto) 0.7, Absolute Neuts (auto) 4.8, Absolute Lymphs (auto) 1.18, Nucleated RBC % 0, Sodium 139, Potassium 3.7, Chloride 107, Carbon Dioxide 28.0, Anion Gap 4 L, BUN 11, Creatinine 0.79, Estim Creat Clear Calc 33.71, Est GFR (MDRD) Af Amer 89, Est GFR (MDRD) Non-Af 74, BUN/Creatinine Ratio 13.9, Glucose 91, Calcium 9.0, Total Bilirubin 0.50, AST 24, ALT 31, Alkaline Phosphatase 113, Total Protein 6.5, Albumin 3.2, Globulin 3.3, Albumin/Globulin Ratio 1.0 Radiography Diagnostic Testing: Radiology Impression Cholangiogram 04/03/23 12:30 IMPRESSION: Mildly dilated common bile duct. No intraluminal filling defect is seen. There is free flow of contrast into the duodenum. Electronically Signed: Az Sharma MD at 14:46 EDT , D/C Instructions Discharge Diet: No restrictions May shower in (days): 1 Ice area for (Minutes): 20 Call your doctor if your incision/area has: Continuous Slow Oozing, Sudden Increased Bleeding, Increased Pain/ Swelling, Increased Redness, Foul Smelling Discharge and Swelling at the incision site Call your doctor if you observe: Fever of 101 or Higher Cleanse incision/area with: Soap & Water Please Follow Up With: Chadwick English MD When: 7-10days postop Discharge Plan Admission Admit Date/Time: 04/03/23 15:57 Primary Reason for Your Visit: Cholecystitis and gallbladder removal Attending Provider: Chadwick English Primary Care Provider: Jillian Canada Instructions Patient Instructions: After Gallbladder Surgery, Cholecystectomy Dc Discharge Orders/Prescriptions Prescriptions: Continued hydrocortisone acetate [Anusol-HC] 25 mg suppository 25 mg [place] TID PRN (Reason: hemorrhoids) Qty: 24 0RF oxycodone 5 mg tablet 5 mg PO multivitamin [Multiple Vitamins] 1 EACH tablet 1 ea PO DAILY cholecalciferol (vitamin D3) [D3-2000] 2,000 UNIT capsule 2,000 unit PO DAILY Fish Oil 1 EACH capsule 1 ea PO DAILY amoxicillin-pot clavulanate 875-125 mg tablet 1 tab PO BID Qty: 20 0RF ondansetron 4 mg tablet,disintegrating 4 mg PO Q8H PRN PRN (Reason: Nausea) Qty: 14 0RF hydrocodone-acetaminophen 5-325 mg tablet 1 tab PO Q6H 3 Days Qty: 12 0RF ondansetron 4 mg tablet,disintegrating 4 mg PO Q8H PRN PRN (Reason: Nausea) Qty: 10 0RF No Action hydrocodone-acetaminophen 5-325 mg tablet 1 tab PO Q6H PRN (Reason: pain) 3 Days Qty: 10 0RF Referrals / Follow Up: Jillian Canada DO [Primary Care Provider] - Disposition Disposition (needs filled in before D/C Order can be placed): Home, Self Care Documented by User: Dr. Rubens Goins MD 04/04/23 06:44 Providers Date of Admission: 04/03/23 Reason For Visit: ACUTE CHOLECYSTITIS Diagnosis Discharge Diagnosis (1) Acute calculous cholecystitis: Status: Resolved Code(s): K80.00 - Calculus of gallbladder with acute cholecystitis without obstruction Medications at Discharge Home Medications cholecalciferol (vitamin D3) 50 mcg (2,000 unit) capsule (D3-2000) 2,000 unit PO DAILY supplement 10/06/16 multivitamin (Multiple Vitamins tablet) 1 ea PO DAILY supplement 10/06/16 omega-3 fatty acids-fish oil 340 mg-1,000 mg capsule (Fish Oil) 1 ea PO DAILY supplement 01/16/18 hydrocortisone acetate 25 mg rectal suppository (Anusol-HC) 25 mg WI TID PRN hemorrhoids #24 ea 11/25/21 oxycodone 5 mg tablet 5 mg PO 05/03/22 amoxicillin 875 mg-potassium clavulanate 125 mg tablet 1 tab PO BID #20 tabs 03/15/23 ondansetron 4 mg disintegrating tablet 4 mg PO Q8H PRN PRN Nausea #14 tabs 03/15/23 hydrocodone-acetaminophen 5-325mg 5mg-325mg 1 tab PO Q6H 3 days #12 TABLETS 03/30/23 ondansetron 4 mg disintegrating tablet 4 mg PO Q8H PRN PRN Nausea #10 tabs 03/30/23 hydrocodone-acetaminophen 5-325mg 5mg-325mg 1 tab PO Q6H PRN pain 3 days #10 tabs 04/08/23 ABG / Lab / Microbiology Data 04/04/23 05:35 04/03/23 06:25 Meaningful Use Info Meaningful Use Diagnoses (Choose all that apply): None applicable Discharge Plan Admission Admit Date/Time: 04/03/23 15:57 Primary Reason for Your Visit: Cholecystitis and gallbladder removal Attending Provider: Chadwick English Primary Care Provider: Jillian Canada Instructions Patient Instructions: After Gallbladder Surgery, Cholecystectomy Dc Discharge Orders/Prescriptions Prescriptions: Continued hydrocortisone acetate [Anusol-HC] 25 mg suppository 25 mg WI TID PRN (Reason: hemorrhoids) Qty: 24 0RF oxycodone 5 mg tablet 5 mg PO multivitamin [Multiple Vitamins] 1 EACH tablet 1 ea PO DAILY cholecalciferol (vitamin D3) [D3-2000] 2,000 UNIT capsule 2,000 unit PO DAILY Fish Oil 1 EACH capsule 1 ea PO DAILY amoxicillin-pot clavulanate 875-125 mg tablet 1 tab PO BID Qty: 20 0RF ondansetron 4 mg tablet,disintegrating 4 mg PO Q8H PRN PRN (Reason: Nausea) Qty: 14 0RF hydrocodone-acetaminophen 5-325 mg tablet 1 tab PO Q6H 3 Days Qty: 12 0RF ondansetron 4 mg tablet,disintegrating 4 mg PO Q8H PRN PRN (Reason: Nausea) Qty: 10 0RF No Action hydrocodone-acetaminophen 5-325 mg tablet 1 tab PO Q6H PRN (Reason: pain) 3 Days Qty: 10 0RF Referrals / Follow Up: Jillian Canada DO [Primary Care Provider] - Disposition Disposition (needs filled in before D/C Order can be placed): Home, Self Care
[2023-04-03] MEDS: hydrALAZINE 20 MG/ML Vial 10 MG IV (18:11)
[2023-04-03] MEDS: 0.9% Saline Lock 10 ML Syringe IV ×2 (18:13→23:23)
[2023-04-03] MEDS: Acetaminophen 325 MG Tablet 650 MG PO (18:13)
[2023-04-03] MEDS: Ondansetron 4 MG/2 ML Vial IV (19:09)
[2023-04-03] MEDS: HYDROmorphone 1 MG/ML Syringe IV (23:23)
[2023-04-04] MEDS: oxyCODONE 5 MG Tablet PO (04:35)
[2023-04-04 04:54] VITALS: BP 140/66; PULSE 94; RESP 16; TEMP 36.9; O2SAT 95
[2023-04-04 05:48] LABS: Absolute Lymphocyte Count 0.64 X10^3/uL (0.83-4.51); Absolute Neutrophil Count 9.4 X10^3/uL (2.0-7.7); Basophil# 0.04 X10^3/uL; Basophil% 0.4 % (0-1); Hematocrit 38.5 % (37-47); Hemoglobin 12.5 g/dL (12.0-15.0); Lymphocyte # 0.64 X10^3/ul (0.83-4.51); Lymphocyte % 5.9 % (19-41); Mean Corp Hgb Conc 32.5 g/dL (32-36); Mean Corpuscular Hgb 30.2 pg (27.0-32.0); Mean Platelet Vol. 9.5 fl (6.2-12.0); Monocyte# 0.83 X10^3/uL; Monocyte% 7.6 % (0-10); NRBC Flagged by Analyzer 0 % (0-5); Neutrophil # 9.36 X10^3/uL (2.7-7.7); Neutrophil % 85.8 % (47-70); Platelet Count 306 K/mm3 (150-450); RBC Distribution Width CV 14.4 % (11.6-14.6); RBC Distribution Width SD 49.3 fl (35.1-43.9); Red Blood Count 4.14 M/mm3 (4.2-5.4); White Blood Count 10.9 K/mm3 (4.4-11.0)
[2023-04-04 09:10] VITALS: BP 144/82; PULSE 86; RESP 16; TEMP 36.6; O2SAT 99
[2023-04-04] MEDS: Acetaminophen 325 MG Tablet 650 MG PO ×2 (09:31→15:40)
--- NOTE | 2023-04-04 09:40 | CASEMGMT ---
ANIL DELANEY Discharge Planning Assessment: Face to Face with patient for initial transition planning/care coordination assessment.?ANIL DELANEY introduced self and role at [facility], Pt alert, answering questions appropriately, voices understanding and is agreeable to participating in assessment with spouse at bedside.? Care providers, pharmacy,?and demographics verified. ? Admitting Dx: Acute cholecystitis PCP: [facility]: none [facility]:?yes LNOK: spouse Elias Living Arrangements: Pt lives with her spouse in a single story home with two steps to enter. Pt states there is a door frame she can use to assist getting up the stairs. Pt states she is independent at baseline with self care and household tasks. They do have someone who assists with cleaning twice a month. Transportation: Pt and spouse drive. Denies any concerns with transportation DME: grab bars in the bathroom, has but has not been using: cane and walker SNF/HHC: denies any previous Plan: Pt plans to return home with the support of her spouse. Discussed current level of assistance as 2 assist with pt, ANIL Nelson, and pt's spouse. Pt noted to be improving since yesterday with decreased assistance needed. Pt continues to recover from anesthesia. Plan for pt to continue ambulating with nursing and will re-evaluate for any additional therapy needs. Pt denies any needs at this time, is agreeable to plan, and understands need to be more independent prior to discharge. Jose Preston RN CM
--- NOTE | 2023-04-04 11:33 | PCM.PN.SRG ---
Subjective Subjective Patient reports no complaints oral pain medications are helping. Objective Data Objective Data Vital Signs: Vital Signs Temp Pulse Resp BP Pulse Ox O2 Del Method O2 Flow Rate 97.9 F 86 16 144/82 H 99 Room Air 2 04/04/23 09:10 04/04/23 09:10 04/04/23 09:10 04/04/23 09:10 04/04/23 09:10 04/04/23 09:10 04/03/23 23:45 Oxygen Flow Rate (L/min) 2 Oxygen Delivery Method Room Air Weight: 163 lb 6.4 oz Body Mass Index (BMI) 30.0 Intake & Output: Intake and Output for Last 24 Hours 04/02/23 04/03/23 04/04/23 23:59 23:59 23:59 Intake Total 1680.00 / 1680.00 2626.54 / 2626.54 284.25 / 284.25 Output Total 200 / 200 Balance 1680.00 / 1680.00 2426.54 / 2426.54 284.25 / 284.25 Lab / Micro Data 04/04/23 05:35 04/03/23 06:25 Labs: Laboratory Results - last 24 hr 04/04/23 05:35: WBC 10.9, RBC 4.14 L, Hgb 12.5, Hct 38.5, MCV 93.0, MCH 30.2, MCHC 32.5, RDW Std Deviation 49.3 H, RDW Coeff of Carmen 14.4, Plt Count 306, MPV 9.5, Immature Gran % (Auto) 0.300, Neut % (Auto) 85.8 H, Lymph % (Auto) 5.9 L, [place] % (Auto) 7.6, Eos % (Auto) 0.0, Baso % (Auto) 0.4, Absolute Neuts (auto) 9.4 H, Absolute Lymphs (auto) 0.64 L, Nucleated RBC % 0 Radiography Diagnostic Testing: Radiology Impression Cholangiogram 04/03/23 12:30 IMPRESSION: Mildly dilated common bile duct. No intraluminal filling defect is seen. There is free flow of contrast into the duodenum. Electronically Signed: Az Sharma MD at 14:46 EDT , Assessment & Plan Assessment/Plan (1) Acute calculous cholecystitis: PLAN: Patient's hemoglobin is stable. When she tolerates regular diet I will discharge her home. Rubens Goins MD Pager: [facility] [address] [place] [address], [address] [place] [phone] Office:
--- NOTE | 2023-04-04 12:21 | PHA.DC_ITS ---
Pharmacy HI Med Reconciliation Pharmacy Service has performed discharge medication reconciliation for this patient. No new medications at time of discharge review. Medications reviewed are from previously reported home medications. Note: On home medlist, both oxycodone and [place] listed. Interviewed patient and she reports she only takes [place]. Educated patient on not taking both agents unless specifically instructed by her doctor. The patient's discharge medication list was reviewed for discrepancies and discrepancies were resolved. Medications at Discharge Home Medications cholecalciferol (vitamin D3) 50 mcg (2,000 unit) capsule (D3-2000) 2,000 unit PO DAILY supplement 10/06/16 multivitamin (Multiple Vitamins tablet) 1 ea PO DAILY supplement 10/06/16 omega-3 fatty acids-fish oil 340 mg-1,000 mg capsule (Fish Oil) 1 ea PO DAILY supplement 01/16/18 hydrocortisone acetate 25 mg rectal suppository (Anusol-HC) 25 mg AL TID PRN hemorrhoids #24 ea 11/25/21 oxycodone 5 mg tablet 5 mg PO 05/03/22 amoxicillin 875 mg-potassium clavulanate 125 mg tablet 1 tab PO BID #20 tabs 03/15/23 ondansetron 4 mg disintegrating tablet 4 mg PO Q8H PRN PRN Nausea #14 tabs 03/15/23 hydrocodone-acetaminophen 5-325mg 5mg-325mg 1 tab PO Q6H 3 days #12 TABLETS 03/30/23 ondansetron 4 mg disintegrating tablet 4 mg PO Q8H PRN PRN Nausea #10 tabs 03/30/23
--- NOTE | 2023-04-04 14:11 | CASEMGMT ---
ANIL DELANEY Follow-up: Met face to face with pt at bedside. Pt alert, states she was able to walk with walker in hallway and denies any discharge needs at this time. Pt states she plans to walk an additional time at 1500 prior to her taking her home. Confirmed pt has a walker available at home and her is able to assist her if needed. Plan: Discharge home with family support. Jose Preston RN CM
== END 2023-04-04 17:00 | disposition home or self-care (01) | DRG 908 ==
LOC: ED 11:03 → MS3 11:46
PROVIDERS: Physician Assistant; Admitting Provider Surgery; Emergency Provider Emergency Medicine; PCP Internal Medicine; Visit Provider Surgery
PROC: 0FT44ZZ Resection of Gallbladder, Percutaneous Endoscopic Approach (ICD-10-PCS; CPT 47610; principal; 2023-04-03 13:10)
DX: K91.71 Accidental puncture and laceration of a digestive system organ or structure during a digestive system procedure (principal); K80.12 Calculus of gallbladder with acute and chronic cholecystitis without obstruction; Z79.899 Other long term (current) drug therapy
CPT/HCPCS: 36415; 74300; 76000; 76705; 80053; 83690; 85025; 88304; 93005; 94668; 99252; 99284; J7030; J7050; J7120; A4216; G0463; J2405

== ENCOUNTER 2023-08-26 09:00 | Outpatient (RCR) | payer MEDICARE, SELFPAY ==
--- NOTE | 2023-07-28 09:39 | HP.PTEVAL_ITS ---
Patient's Visit Information Visit Information Visit Information: DUANE EDUARDO is a 82 year old F referred to Physical Therapy by Dr. Jillian Canada DO with a diagnosis of B hip pain/greater trochan bursitis/IT band/L pain. Date of Evaluation: 07/28/23 Physical Therapist: Veda Allan MPT Visit Plan Frequency: 2x /Week Duration: 2 Months Plan: 2X/ week for 8 weeks for B hip strength, neutral spine core stability, stretching into trunk flexion (seated and skc), gait training, postural exercises with HEP Pt needs to work on standing hip abduction and given next visit as part of HEP with maintain upright trunk ( no lean) HEP: SKC, PT, Seated chair flexion Subjective Subjective: They decided to do a trip and there was a lot of walking and she really did her body in. She hurts all over. She does some exercises at home but they do not seem to helping. She has pain on the R LB and along B side of legs. She sleeps horribly (maybe an hour at a time). She was given prednisone but has not picked it up yet. She is just tired of the pain. This has been going on since February and the last 2 months have been horrible. She saw an Chiropractor and did not help much. She is supposed to do an x-ray. She hurts worse standing. She has to change positions to sleep. Stairs: she has to go one step at a time. She has no N&T. She has exhaustion at times and can not go anymore. She has no Energy. She does not do her own house cleaning but can do the kitchen. She has had 3 back surgeries and she is fused. Pain R LB: Pain Intensity (Out of 10): 5 R hip: Pain Intensity (Out of 10): 6 L hip: Pain Intensity (Out of 10): 3 Objective Objective: Gait: Pt walks with decreased stride increase R trendelenburg and comes down hard on the R hip with gait with R lateral trunk flexion. Had the pt walk with a rollator and she was able to walk with slightly flexed trunk with increase stride and confiedence and less pain. Had pt walk with the straight cane and still had better mechanics and less pain. LE MMT: R hip flex 9.2 and L hip flex 7.4 R knee ext 12.6 and L 14.3 R knee flex 9.4 and L knee flex 9.4 R hip abd 7.1 and L hip abd 5.5 (pt is not able to lift her L leg against gravity on the L Pt is able to do a full ROM bridge Able to walk on heels and toes: pt is able to heel and toe raise X 5 each direction Balance/Special Test Scores Lower Extremity Functional Score: 10 Goals Goal 1:: I HEP Goal Time Frame: 6-8 Weeks Goal 2:: Be able to walk with more upright posture and more equal stance time on B LE's Goal Time Frame: 6-8 Weeks Goal 3:: Be able to walk with no pain Goal Time Frame: 6-8 Weeks Goal 4:: Increase LE strength (at time of the eval: LE MMT: R hip flex 9.2 and L hip flex 7.4 R knee ext 12.6 and L 14.3 R knee flex 9.4 and L knee flex 9.4 R hip abd 7.1 and L hip abd 5.5 (pt is not able to lift her L leg against gravity on the L) Goal Time Frame: 6-8 Weeks Rehabilitation Potential Rehabilitation Potential: Good Anticipated Interventions Patient/Client Instruction: Educate patient on: Condition and Plan of Care For the Purpose of:: To decrease pain, To increase ROM, To improve nutrient delivery to tissue, To increase oxygenation perfusion, To improve muscle performance and motor function, To improve ability to perform ADL's, To increase tolerance to activity/condition/position, To improve performance and independence with ADL's, To decrease level of supervision to perform tasks, To improve ability of physical actions for home/community/work/leisure, To improve gait and locomotor functions, To improve health of tissue, To decrease soft tissue restriction, To increase flexibility/ROM, To improve endurance, To improve balance and To improve safety with gait Therapeutic Exercise to Include: Strength training, Endurance training, Balance training, Postural training, Flexibilty training, Gait and locomotor training, Active ROM and Dynamic Lumbar Stabilization For the Purpose of:: To decrease pain, To increase ROM, To improve nutrient delivery to tissue, To increase oxygenation perfusion, To improve muscle performance and motor function, To improve ability to perform ADL's, To increase tolerance to activity/condition/position, To improve performance and independence with ADL's, To decrease level of supervision to perform tasks, To i mprove ability of physical actions for home/community/work/leisure, To improve gait and locomotor functions, To improve health of tissue, To increase flexibility/ROM, To improve endurance, To improve balance and To improve safety with gait Functional Training to Include: Gait training For the Purpose of:: To improve gait and locomotor functions and To improve safety with gait Manual Therapy Techniques to Include: Passive ROM and Soft tissue mobilization For the Purpose of:: To decrease pain, To decrease swelling/inflammation, To increase ROM, To improve nutrient delivery to tissue, To improve muscle performance and motor function, To decrease soft tissue restriction and To increase flexibility/ROM Text: Thank you for the opportunity to evaluate your patient. For Medicare and Medicare HMO plans, please review the plan of care and approve it. It will need to be FAXED BACK to us at [phone] for Medicare purposes. For Medicare only, by signing this I certify the plan of care. Please let me know if there are questions or concerns regarding this plan of care. Physician Signature: Date:
--- NOTE | 2023-08-26 09:30 | HP.PTDCSUM ---
Discharge Summary D/C summary: It has been my pleasure to treat DUANE EDUARDO referred by Dr. Jillian Canada DO, with the diagnosis of B hip pain/greater trochan bursitis/IT band/L pain for a total of 8 visit(s). Discharge Date: 08/26/23 Please see the following information for a summary of their discharge status. Subjective Subjective: Pt is feeling better with her HEP and loves the rolling of her IT band and has really learned the importance of HEP Pain R LB: Pain Intensity (Out of 10): 4 R hip: Pain Intensity (Out of 10): 4 L hip: Pain Intensity (Out of 10): 4 Overall Improvement % Improvement: 50 Objective Objective/Function: Gait: Walks with a straight cane with decrease stance time on the L LE but walks much better with her straight cane and has less pain. LE MMT: R hip flex 11.6 and L hip flex 9.9 R knee ext 16.3 and L 16.5 R knee flex 12.3 and L knee flex 12.9 R hip abd 12 and L hip abd 11 Goals Goal 1:: I HEP Goal Progress: Goal Met Goal 2:: Be able to walk with more upright posture and more equal stance time on B LE's Goal Progress: Progressing Goal 3:: Be able to walk with no pain Goal Progress: Progressing Goal 4:: Increase LE strength (at time of the eval: LE MMT: R hip flex 9.2 and L hip flex 7.4 R knee ext 12.6 and L 14.3 R knee flex 9.4 and L knee flex 9.4 R hip abd 7.1 and L hip abd 5.5 (pt is not able to lift her L leg against gravity on the L) Goal Progress: Goal Met Plan Plan: DC PT to HEP D/C Information Discharge Comments: DC PT to HEP d/c sentence: If there are questions or concerns regarding this patient's physical therapy, please feel free to call me at [phone]. Thank you for the referral of this patient. Sincerely, Veda Allan, MPT Balance/Gait/Functional tests Balance/Special Test Scores Lower Extremity Functional Score: 24 Improvement % Improvement: 50
== END 2023-08-26 12:38 | disposition home or self-care (01) ==
LOC: PT 09:00
PROVIDERS: PCP Internal Medicine; Referring Provider Internal Medicine; Visit Provider Internal Medicine
DX: M54.50 Low back pain, unspecified (principal); M25.551 Pain in right hip; M25.552 Pain in left hip; M70.61 Trochanteric bursitis, right hip
CPT/HCPCS: 97110; 97162; 97530

== ENCOUNTER 2024-01-14 10:04 | Emergency (ER) | payer MEDICARE, SELFPAY ==
[2024-01-14 10:05] VITALS: BP 188/93; PULSE 98; RESP 16; TEMP 36.3; O2SAT 99; BMI 30.4
--- NOTE | 2024-01-14 10:26 | RAD_ITS ---
STUDY: X-RAY - LUMBAR SPINE REASON FOR EXAM: Female, 83 years old. Increasing low back pain. TECHNIQUE: 2 view(s) of the lumbar spine were obtained. COMPARISON: Comparison is made with prior study the May 02, 2014. FINDINGS: Normal lumbar lordosis. There is no substantial scoliosis. Minimal anterior listhesis of L3 on L4. The patient is status post laminectomy and interpedicular screw and jaylen fixation at the L1-L2, L2-L3 and L3-L4 levels. There is multi-level degenerative disc disease with multi-level disc space narrowing. There is atherosclerotic calcification of the abdominal aorta without a demonstrated aneurysm. RAD/Lumbar Spine 2 or 3 Views IMPRESSION: Degenerative changes of the spine, as detailed above. Status post fusion at the L1-L2, L2-L3 and L3-L4 levels. Electronically Signed: Az Sharma MD at 11:06 EDT ,
--- NOTE | 2024-01-14 10:27 | EDS_ITS ---
HPI History of Present Illness Chief Complaint: Back Informant: patient Onset/Context/Timing Onset: Weeks Context: Gradual Onset Narrative Narrative: Patient presents secondary to 6 weeks of back pain. She states pain is throughout the upper and lower back. She denies chest pain or shortness of breath. Pain seems to be worse with movement. About 5 or 6 months ago she saw her primary care physician for back pain and underwent physical therapy. She states it helped at the time and she has been trying to do the exercises at home, but has had increased pain for the past 6 weeks. There is been no fall or new injury. She has had multiple surgeries to her lower lumbar spine with fusion, most recently being 6 years ago. [facility] Medical History Back pain Diverticulitis Diverticulitis Gluten enteropathy Hiatal hernia Non-smoker Pancreatitis Post-menopausal Rectus sheath hematoma Right hamstring injury Home Medications cholecalciferol (vitamin D3) 50 mcg (2,000 unit) capsule (D3-2000) 2,000 unit PO DAILY supplement 10/06/16 [History Last Taken 08/07/20] multivitamin (Multiple Vitamins tablet) 1 ea PO DAILY supplement 10/06/16 [History Last Taken 08/07/20] omega-3 fatty acids-fish oil 340 mg-1,000 mg capsule (Fish Oil) 1 ea PO DAILY supplement 01/16/18 [History Last Taken 08/07/20] hydrocortisone acetate 25 mg rectal suppository (Anusol-HC) 25 mg SC TID PRN hemorrhoids #24 ea 11/25/21 [Rx Last Taken Unknown] oxycodone 5 mg tablet 5 mg PO 05/03/22 [History Last Taken Unknown] amoxicillin 875 mg-potassium clavulanate 125 mg tablet 1 tab PO BID #20 tabs 03/15/23 [Rx Last Taken Unknown] ondansetron 4 mg disintegrating tablet 4 mg PO Q8H PRN PRN Nausea #14 tabs 03/15/23 [Rx Last Taken Unknown] hydrocodone-acetaminophen 5-325mg 5mg-325mg 1 tab PO Q6H 3 days #12 TABLETS 03/30/23 [Rx Last Taken Unknown] ondansetron 4 mg disintegrating tablet 4 mg PO Q8H PRN PRN Nausea #10 tabs 03/30/23 [Rx Last Taken Unknown] gabapentin 300 mg capsule 300 mg PO QHS #30 caps 01/14/24 [Rx Last Taken Un known] hydrocodone-acetaminophen 5-325mg 5mg-325mg 1 tab PO Q6H PRN PRN Pain 3 days #10 TABLETS 01/14/24 [Rx Last Taken Unknown] Allergy/AdvReac Type Severity Reaction Status Date / Time gluten Allergy Diarrhea Verified 01/14/24 10:04 nut - unspecified AdvReac Unknown Diverticulo Verified 01/14/24 10:04 sis Social History Smoking Status: Never smoker ROS ROS ED Constitutional Constitutional ED: Denies chills or fever(s) ENT ENT ED: Denies rhinorrhea or sore throat Cardiovascular Cardiovascular: Denies chest pain or palpitations Respiratory/Chest Respiratory/Chest: Denies cough or dyspnea Gastrointestinal Gastrointestinal: Denies abdominal pain, nausea or vomiting Genitourinary Genitourinary ED: Denies dysuria Musculoskeletal Musculoskeletal: Reports back pain; Denies extremity pain Integumentary Denies Abrasions or rash Neurologic Neurologic: Denies headache(s), paresthesias or weakness Psychiatric Psychiatric: Denies anxiety or depression Allergic/Immunologic Allergic/Immunologic ED: Denies lip swelling or urticaria EXAM Physical Exam Const Vital Signs: 01/14/24 10:05 Temperature 97.4 F L Temperature Source Temporal Pulse Rate 98 Respiratory Rate 16 Blood Pressure 188/93 H Blood Pressure Mean 124 Pulse Ox 99 Oxygen Delivery Method Room Air Positive well nourished and well developed General Appearance ED: well developed HEENT Reports moist mucous membranes Eyes EOMs intact bilaterally Resp normal respiratory effort and clear to auscultation bilaterally Cardio regular rate and regular rhythm GI soft to palpation and non-tender Back/Spine Back/Spine Narrative: Lower lumbar midline scar with no reproducible tenderness. No erythema or abrasions. Upper back examination does reveal upper thoracic paraspinal tenderness bilaterally. Again, no erythema or abrasions noted. Extremity normal to inspection Neuro oriented x3 and no sensory deficits noted Motor Exam: strength 5/5 throughout Psych mental status grossly normal Skin no rashes or lesions noted MDM MDM MDM Narrative Medical decision making narrative: I did review patient's [facility] report. Last prescription for [place] was written in March 2023. She is given a dose of [place] here and x-rays of the chest and lumbar spine obtained to evaluate for any acute bony abnormality to explain her increased pain. Radiography Diagnostic Testing: Clinical Impression(s) from Imaging Studies Lumbar Spine X-Ray 01/14/24 10:26 IMPRESSION: Degenerative changes of the spine, as detailed above. Status post fusion at the L1-L2, L2-L3 and L3-L4 levels. Electronically Signed: Az Sharma MD at 11:06 EDT , Chest X-Ray 01/14/24 10:40 IMPRESSION: The lungs are clear. Electronically Signed: Az Sharma MD at 11:07 EDT , Treatment and Re-Evaluation Narrative: 2 view chest x-ray per my interpretation reveals chronic arthritic changes to the spine with no acute rib abnormalities. Radiology interpretation reviewed and agrees. Lumbar spine x-rays reveal postoperative changes per my interpretation with normal alignment. Radiology interpretation reviewed and agrees. I did discuss case with her primary care physician, Dr. Canada. Patient describes nervelike pain. We will go ahead and start her on gabapentin at bedtime, and when she follows up with Dr. Canada we can determine if this is helping. I will also write her prescription for [place]. This is discussed with the patient and she is in agreement with the plan. Return instructions provided. Discharge Plan Triage Chief Complaint: Back ED Provider: Lisbet Joseph Dx/Rx/DC Orders Clinical Impression: Back pain Instructions: ED Back and Neck Pain, General Prescriptions: New hydrocodone-acetaminophen 5-325 mg tablet 1 tab PO Q6H PRN PRN (Reason: Pain) 3 Days Qty: 10 0RF gabapentin 300 mg capsule 300 mg PO QHS Qty: 30 0RF No Action hydrocortisone acetate [Anusol-HC] 25 mg suppository 25 mg SC TID PRN (Reason: hemorrhoids) Qty: 24 0RF oxycodone 5 mg tablet 5 mg PO multivitamin [Multiple Vitamins] 1 EACH tablet 1 ea PO DAILY cholecalciferol (vitamin D3) [D3-2000] 2,000 UNIT capsule 2,000 unit PO DAILY Fish Oil 1 EACH capsule 1 ea PO DAILY amoxicillin-pot clavulanate 875-125 mg tablet 1 tab PO BID Qty: 20 0RF ondansetron 4 mg tablet,disintegrating 4 mg PO Q8H PRN PRN (Reason: Nausea) Qty: 14 0RF hydrocodone-acetaminophen 5-325 mg tablet 1 tab PO Q6H 3 Days Qty: 12 0RF ondansetron 4 mg tablet,disintegrating 4 mg PO Q8H PRN PRN (Reason: Nausea) Qty: 10 0RF Primary Care Provider: Jillian Canada Referrals: Jillian Canada DO [Primary Care Provider] - 1 Week Disposition Disposition: Home, Self Care
[2024-01-14] MEDS: HYDROcodone Bitartrate/Apap 5/325 Tablet PO (10:32)
--- NOTE | 2024-01-14 10:40 | RAD_ITS ---
STUDY: X-RAY CHEST REASON FOR EXAM: Female, 83 years old. Back pain TECHNIQUE: PA and lateral views of the chest. COMPARISON: Comparison is made with prior study January 16, 2018. FINDINGS: The lungs are clear and expanded. There is no demonstrated pleural abnormality. Normal size heart. Normal mediastinum and arun. Normal visualized pulmonary arteries. There is atherosclerotic calcification of the aortic arch with tortuosity. There is demineralization of the osseous structures. Multilevel disc space narrowing. Normal visualized ribs, clavicles, and shoulders. There is no demonstrated abnormality of the visualized soft tissue structures of the upper abdomen. RAD/Chest PA and Lateral IMPRESSION: The lungs are clear. Electronically Signed: Az Sharma MD at 11:07 EDT ,
[2024-01-14 12:29] VITALS: BP 176/84; PULSE 90; RESP 16; TEMP 36.6; O2SAT 99
== END 2024-01-14 12:33 | disposition home or self-care (01) ==
PROVIDERS: Emergency Provider Emergency Medicine; PCP Internal Medicine; Visit Provider Emergency Medicine
DX: M54.9 Dorsalgia, unspecified (principal); Z79.899 Other long term (current) drug therapy
CPT/HCPCS: 71046; 72100; 99282

== ENCOUNTER → 2024-02-23 | Outpatient (CLI) | payer MEDICARE, SELFPAY ==
--- NOTE | 2024-02-23 08:06 | MRI_ITS ---
STUDY: MRI THORACIC SPINE WITHOUT CONTRAST REASON FOR EXAM: Female, 83 years old. acute midline thoracic back pain TECHNIQUE: Standardized fat and water weighted pulse sequences were obtained in the sagittal and axial planes. COMPARISON: X-ray of the thoracic spine dated January 21, 2024 FINDINGS: Multiple small cysts are present in the left kidney which does not requiring additional imaging. No active marrow edema or fracture or compression deformity is present. Moderate asymmetric disc space narrowing and Modic endplate degenerative signal and changes are present at T9-T10 in the central to left side of the disc space. Normal kyphosis of the thoracic spine. Minimal levoscoliosis is present. Lumbar spine hardware is present. T1-2, T2-3, T3-4, T4-5, T5-6, T6-7, T7-8, T8-9, T9-10, T10-11, T11-12: Disc desiccation with mild asymmetric disc space narrowing is present throughout the thoracic spine. Some minor disc protrusions are present at T9-T10 and T11-T12. Mild central canal stenosis and moderate left foraminal stenosis with nerve root compression due to facet joint hypertrophy are also present at T9-T10. Moderate to severe disc space narrowing at T12-L1 with a diffuse disc osteophyte complex contributing to mild central canal stenosis. Mild to moderate Modic endplate degenerative signal and changes are also present at T12-L1. Mild right and moderate left foraminal stenosis with nerve root compression is present at T11-T12 secondary to facet joint and ligamenta flava hypertrophy. There is also mild fluid distention of facet joints at the T11-T12 level. Moderate bilateral foraminal stenosis with nerve root compression is present at T12-L1 secondary to facet joint hypertrophy. Normal visualized thoracic cord. Normal conus medullaris that terminates at the L1 level. The soft tissue structures are unremarkable. MRI/Spine Thoracic (Routine) IMPRESSION: 1. Multilevel degenerative changes of the thoracic spine. 2. Mild central canal stenosis at T9-T10 and T11-T12 3. Multilevel foraminal stenosis Electronically Signed: Joby Graham MD at 11:00 EDT ,
== END | disposition home or self-care (01) ==
LOC: MRI 08:01
PROVIDERS: PCP Internal Medicine; Referring Provider Internal Medicine; Visit Provider Internal Medicine
DX: M54.6 Pain in thoracic spine (principal)
CPT/HCPCS: 72146

== ENCOUNTER → 2024-03-31 | Outpatient (CLI) | payer MEDICARE, SELFPAY ==
--- NOTE | 2024-03-31 15:44 | MRI_ITS ---
STUDY: MRI LUMBAR SPINE WITHOUT CONTRAST REASON FOR EXAM: Female, 83 years old. SPONDYLOSIS,STENOSIS TECHNIQUE: Standardized fat and water weighted pulse sequences were obtained in the sagittal and axial planes. COMPARISON: MRI 06/14/2014, X-ray 01/14/2024 FINDINGS: T12-L1: Interval development of a mild bilobed disc protrusion which produces mild spinal stenosis and mild bilateral neural foraminal stenosis. Normal lumbar lordosis. Mild levoscoliosis centered at L1. Normal conus medullaris that terminates at the L1/L2. L1-2: Interval posterior decompression and transpedicular fixation with 2 mm retrolisthesis of L1 on L2 producing mild spinal stenosis relieved by the posterior decompression and mild bilateral neural foraminal stenosis. L2-3: Interval posterior decompression and transpedicular fixation with anatomic alignment with no spinal stenosis or neural foraminal stenosis. L3-4: Interval posterior decompression and transpedicular fixation with 5 mm of anterolisthesis of L3 on L4 with no spinal stenosis or neural foraminal stenosis. L4-5: Normal endplates. Normal disc height, hydration and morphology. Normal bilateral facet joints. Normal central canal and bilateral lateral recesses. Normal bilateral intervertebral neural foramina. L5-S1: Ankylosis of the anterior disc space which is unchanged with anatomic alignment and no spinal stenosis or neural foraminal stenosis. Normal visualized sacral ala. Multiple right renal cysts. MRI/Spine Lumbar (Routine) IMPRESSION: Interval posterior decompression and transpedicular fixation from L1 through L4 with development of mild degenerative disc disease at T12/L1. Electronically Signed: Yariel Patel MD at 11:10 EDT ,
== END | disposition home or self-care (01) ==
PROVIDERS: PCP Internal Medicine; Referring Provider Anesthesiology; Visit Provider Anesthesiology
DX: M47.816 Spondylosis without myelopathy or radiculopathy, lumbar region (principal); M48.061 Spinal stenosis, lumbar region without neurogenic claudication
CPT/HCPCS: 72148

== ENCOUNTER 2024-04-11 07:14 | Emergency (ER) | payer MEDICARE, SELFPAY ==
[2024-04-11 07:15] VITALS: BP 189/64; PULSE 88; RESP 16; TEMP 36.4; O2SAT 96; BMI 30.1
[2024-04-11 07:36] VITALS: BP 189/89; PULSE 89; RESP 16; TEMP 36.5; O2SAT 97
--- NOTE | 2024-04-11 07:40 | EX.ED.VIS.PS ---
HPI HPI - Psych History of Present Illness Chief Complaint: Anxiety Informant: patient Onset/Context/Timing Onset: Month(s) Context: Gradual Onset Timing: Intermittent Current Severity: Mild Maximum Severity: Moderate Associated Symptoms Specific plan (suicidal thought): None Narrative Narrative: 83-year-old female history of prediabetes and pain management for chronic back pain after 3 back surgeries. Says the last 6 months she has had significant difficulty sleeping at night sometimes due to pain other times due to anxiety. She just got to the point last night and this morning that she felt like she needed to come in to be evaluated. She denies any nausea, vomiting or diarrhea. No fever or chills. Prior similar symptoms: Yes Recent Illness/Hospitalization: No PFSH [facility] Medical History Non-smoker Post-menopausal Diverticulitis Hiatal hernia Right hamstring injury Rectus sheath hematoma Diverticulitis Back pain Gluten enteropathy Pancreatitis Home Medications ?Medication ?Instructions ?Recorded ?Last Taken ?Type cholecalciferol (vitamin D3) 50 2,000 unit PO DAILY supplement 10/06/16 08/07/20 History mcg (2,000 unit) capsule (D3-2000) multivitamin (Multiple Vitamins 1 ea PO DAILY supplement 10/06/16 08/07/20 History tablet) omega-3 fatty acids-fish oil 340 1 ea PO DAILY supplement 01/16/18 08/07/20 History mg-1,000 mg capsule (Fish Oil) hydrocortisone acetate 25 mg 25 mg AL TID PRN hemorrhoids #24 ea 11/25/21 Unknown Rx rectal suppository (Anusol-HC) oxycodone 5 mg tablet 5 mg PO 05/03/22 Unknown History amoxicillin 875 mg-potassium 1 tab PO BID #20 tabs 03/15/23 Unknown Rx clavulanate 125 mg tablet ondansetron 4 mg disintegrating 4 mg PO Q8H PRN PRN Nausea #14 tabs 03/15/23 Unknown Rx tablet hydrocodone-acetaminophen 5-325mg 1 tab PO Q6H 3 days #12 TABLETS 03/30/23 Unknown Rx 5mg-325mg ondansetron 4 mg disintegrating 4 mg PO Q8H PRN PRN Nausea #10 tabs 03/30/23 Unknown Rx tablet gabapentin 300 mg capsule 300 mg PO QHS #30 caps 01/14/24 Unknown Rx hydrocodone-acetaminophen 5-325mg 1 tab PO Q6H PRN PRN Pain 3 days 01/14/24 Unknown Rx 5mg-325mg #10 TABLETS lorazepam 0.5 mg tablet (Ativan) 0.5 mg PO QHS PRN anxiety #7 tabs 04/11/24 Unknown Rx Allergy/AdvReac Type Severity Reaction Status Date / Time gluten Allergy Diarrhea Verified 04/11/24 07:14 nut - unspecified AdvReac Unknown Diverticulo Verified 04/11/24 07:14 sis Social History Smoking Status: Never smoker ROS ROS ED ROS Narrative Denies any recent illness. Review of Systems ROS Unobtainable: Denies due to encephalopathy Constitutional Constitutional ED: Denies chills or fever(s) Eyes Eyes: Denies blurry vision ENT ENT ED: Denies ear pain Cardiovascular Cardiovascular: Denies chest pain Respiratory/Chest Respiratory/Chest: Denies cough Gastrointestinal Gastrointestinal: Denies abdominal pain Genitourinary Genitourinary ED: Denies dysuria or hematuria Musculoskeletal Musculoskeletal: Denies arthralgias Integumentary Denies abscess or Abrasions Neurologic Neurologic: Denies headache(s) Psychiatric Psychiatric: Reports anxiety; Denies depression Endocrine Endocrinology: Denies polydipsia Hematologic/Lymphatic Hematologic/Lymphatic: Denies easy bleeding, easy bruising or lymphadenopathy Allergic/Immunologic Allergic/Immunologic ED: Denies mouth swelling, tongue swelling or urticaria EXAM Physical Exam Narrative Exam Narrative: Well-appearing 83-year-old female. Vital signs stable afebrile. No distress. She is calm and collected. H EENT exam unremarkable. Pupils round react to light. Normal speech. Neck nontender. Lungs clear to auscultation bilaterally. Heart regular rhythm no murmur. Abdomen is soft and nontender. Moving all 4 extremities. 5 out of 5 motor strength. Normal range of motion. Back currently nontender. Well-healed lumbar surgical scar. Neurologically she is awake and alert. Answering questions following commands. No focal motor deficits. Const Vital Signs: 04/11/24 07:15 04/11/24 07:36 Temperature 97.6 F L 97.7 F L Temperature Source Temporal Pulse Rate 88 89 Respiratory Rate 16 16 Blood Pressure 189/64 H 189/89 H Blood Pressure Mean 105 122 Pulse Ox 96 97 Oxygen Delivery Method Room Air Positive well nourished and well developed; Negative for obese, cachectic, contractures or unkempt General Appearance ED: well developed and NAD; Negative for unkempt, cachectic, contractures or pallor Nutritional Appearance: Negative for cachectic or obese HEENT Reports moist mucous membranes normocephalic and atraumatic; Negative for trauma or tenderness Eyes PERRL and EOMs intact bilaterally General Eye ED: Negative for pale conjunctiva, scleral icterus or other Neck no lymphadenopathy, supple and no JVD General: Negative for tenderness or other Resp normal respiratory effort and clear to auscultation bilaterally Effort and Inspection: Negative for retractions Auscultation: Negative for rales, rhonchi or wheezes Cardio S1 normal heart sound, S2 normal heart sound and no murmurs Palpation: Negative for other Rate: regular rate Rhythm: regular rhythm GI non-tender, non-distended and no masses Inspection: Negative for abdominal distention Auscultation: normoactive bowel sounds Palpation: soft; Negative for tender, guarding or mass Back/Spine no CVA tenderness General Back: Negative for CVA tenderness Cervical Spine: Negative for cervical spine tenderness Thoracic Spine / Upper Back: Negative for thoracic spinal tenderness Lumbar Spine / Lower Back: Negative for lumbar spinal tenderness Coccyx: Negative for other Extremity normal to inspection General Extremety ED: Negative for edema or tenderness General Extremity: Negative for edema Neuro oriented x3 and CN's II-XII intact bilaterally Sensorium / Orientation: alert, oriented to person, oriented to place and oriented to time; Negative for orientation impaired, confused, lethargic or stuporous Motor Exam: strength 5/5 throughout Psych mental status grossly normal, thought process normal, cooperative, affect normal, speech normal and activity/motor behavior normal Appearance: grossly normal; Negative for unkempt Attitude: calm, engaged, No paranoid, No withdrawn and No bizarre Activity / Motor Behavior: appropriate eye contact Speech: normal speech Mood & Affect: euthymic mood Thought Process: normal thought process Thought Content: normal thought content Attention / Concentration: attention grossly intact Memory / Cognition: memory grossly intact Insight: insight good Judgement: judgement good Skin General Skin Exam: Negative for jaundice or pallor Lesions: no lesions Rashes: no rashes Trauma: Negative for abrasion Wounds: Negative for amputation MDM MDM MDM Narrative Medical decision making narrative: 83-year-old female suffers from anxiety and difficulty sleeping at night for the last 6 months. I explained to her and her family that we would likely run tests that were not specific test to do in the emergency department. She understands this and states I feel [place] being here. I explained to her that we are happy to evaluate her just that there was not a lot of testing we can do in the emergency department this is more of a clinical diagnosis that she needs to follow-up with her primary care physician and/or a psychologist or counselor. She is comfortable with that plan. She will be given a small prescription of half a milligram of Ativan as needed when her anxiety is at its worst. History & Record Review Discussion w/independent historian: Patient and Family Additional record(s) reviewed:: Prior inpatient record, Prior outpatient record, Prior ED visit and Prior labs Discharge Plan Triage Chief Complaint: Anxiety ED Provider: Alexi Barbosa Dx/Rx/DC Orders Clinical Impression: Anxiety, Chronic back pain Instructions: Understanding Anxiety Disorders Prescriptions: New lorazepam [Ativan] 0.5 mg tablet 0.5 mg PO QHS PRN (Reason: anxiety) Qty: 7 0RF No Action hydrocortisone acetate [Anusol-HC] 25 mg suppository 25 mg AL TID PRN (Reason: hemorrhoids) Qty: 24 0RF oxycodone 5 mg tablet 5 mg PO multivitamin [Multiple Vitamins] 1 EACH tablet 1 ea PO DAILY cholecalciferol (vitamin D3) [D3-2000] 2,000 UNIT capsule 2,000 unit PO DAILY Fish Oil 1 EACH capsule 1 ea PO DAILY amoxicillin-pot clavulanate 875-125 mg tablet 1 tab PO BID Qty: 20 0RF ondansetron 4 mg tablet,disintegrating 4 mg PO Q8H PRN PRN (Reason: Nausea) Qty: 14 0RF hydrocodone-acetaminophen 5-325 mg tablet 1 tab PO Q6H 3 Days Qty: 12 0RF ondansetron 4 mg tablet,disintegrating 4 mg PO Q8H PRN PRN (Reason: Nausea) Qty: 10 0RF hydrocodone-acetaminophen 5-325 mg tablet 1 tab PO Q6H PRN PRN (Reason: Pain) 3 Days Qty: 10 0RF gabapentin 300 mg capsule 300 mg PO QHS Qty: 30 0RF Primary Care Provider: Jillian Canada Referrals: Jillian Canada, [Primary Care Provider] - As soon as possible Activity Restrictions/Additional Instructions: Call and follow-up with primary care physician Dr. Jillian Canada for further evaluation hopefully get in to see a counselor, psychologist or high school social studies tutor. Ativan as needed I would use it an hour or 2 before going to bed at night. Do not drink alcohol or drive while using it. Print Language: Nam[place]ian Disposition Disposition: Home, Self Care
== END 2024-04-11 07:55 | disposition home or self-care (01) ==
LOC: ED 07:44
PROVIDERS: Emergency Provider Emergency Medicine; PCP Internal Medicine; Visit Provider Emergency Medicine
DX: F41.9 Anxiety disorder, unspecified (principal); G89.29 Other chronic pain; M54.9 Dorsalgia, unspecified; R73.03 Prediabetes; Z79.899 Other long term (current) drug therapy
CPT/HCPCS: 99282

== ENCOUNTER 2024-07-02 10:47 | Emergency (ER) | payer MEDICARE, SELFPAY ==
[2024-07-02 10:48] VITALS: BP 149/90; PULSE 92; RESP 16; TEMP 36.7; O2SAT 97
[2024-07-02 10:50] VITALS: BMI 31.2
--- NOTE | 2024-07-02 11:29 | EDS_ITS ---
HPI History of Present Illness Chief Complaint: Lower Extremity Injury Detail of Chief Complaint: Left hip pain Informant: patient Narrative Narrative: Patient presents to the emergency department complaint of pain in her left hip that started about 1 week ago. Patient states that she went to see a friend would lost her and when she sat down she felt a pain in her left hip and has had discomfort ever since. She went to see pain management who started her on a muscle relaxer. She has not gotten much relief with the muscle relaxer. The pain kind of stops above the knee. She denies numbness or tingling. She denies any pain in her low back. Pain worse at times with movement but there all the time. She uses a cane to ambulate now. She denies weakness to the extremity. She denies change of bowel or bladder function. [facility] Medical History Non-smoker Post-menopausal Diverticulitis Hiatal hernia Right hamstring injury Rectus sheath hematoma Diverticulitis Back pain Gluten enteropathy Pancreatitis Home Medications ?Medication ?Instructions ?Recorded ?Last Taken ?Type cholecalciferol (vitamin D3) 50 2,000 unit PO DAILY supplement 10/06/16 08/07/20 History mcg (2,000 unit) capsule (D3-2000) multivitamin (Multiple Vitamins 1 ea PO DAILY supplement 10/06/16 08/07/20 History tablet) omega-3 fatty acids-fish oil 340 1 ea PO DAILY supplement 01/16/18 08/07/20 History mg-1,000 mg capsule (Fish Oil) hydrocortisone acetate 25 mg 25 mg HI TID PRN hemorrhoids #24 ea 11/25/21 Unknown Rx rectal suppository (Anusol-HC) oxycodone 5 mg tablet 5 mg PO 05/03/22 Unknown History amoxicillin 875 mg-potassium 1 tab PO BID #20 tabs 03/15/23 Unknown Rx clavulanate 125 mg tablet ondansetron 4 mg disintegrating 4 mg PO Q8H PRN PRN Nausea #14 tabs 03/15/23 Unknown Rx tablet hydrocodone-acetaminophen 5-325mg 1 tab PO Q6H 3 days #12 TABLETS 03/30/23 Unknown Rx 5mg-325mg ondansetron 4 mg disintegrating 4 mg PO Q8H PRN PRN Nausea #10 tabs 03/30/23 Unknown Rx tablet gabapentin 300 mg capsule 300 mg PO QHS #30 caps 01/14/24 Unknown Rx hydrocodone-acetaminophen 5-325mg 1 tab PO Q6H PRN PRN Pain 3 days 01/14/24 Unknown Rx 5mg-325mg #10 TABLETS lorazepam 0.5 mg tablet (Ativan) 0.5 mg PO QHS PRN anxiety #7 tabs 04/11/24 Unknown Rx methylprednisolone 4 mg tablets in 4 mg PO DAILY #21 tabs 07/02/24 Unknown Rx a dose pack (Medrol (Matt)) oxycodone-acetaminophen 5 mg-325 1 tab PO Q6H PRN PRN Pain 3 days 07/02/24 Unknown Rx mg tablet #12 TABLETS Allergy/AdvReac Type Severity Reaction Status Date / Time gluten Allergy Diarrhea Verified 07/02/24 10:50 nut - unspecified AdvReac Unknown Diverticulo Verified 07/02/24 10:50 sis Social History Smoking Status: Never smoker ROS ROS ED Review of Systems ROS Unobtainable: other Constitutional Constitutional ED: Reports lethargy; Denies chills, fever(s), sweats or weight loss Eyes Eyes: Denies blurry vision, change in vision or diplopia ENT ENT ED: Denies rhinorrhea or sore throat Cardiovascular Cardiovascular: Denies chest pain, orthopnea or racing heartbeat Respiratory/Chest Respiratory/Chest: Denies cough, dyspnea, dyspnea on exertion, orthopnea or sputum Gastrointestinal Gastrointestinal: Denies abdominal pain, diarrhea, nausea or vomiting Genitourinary Genitourinary ED: Denies dysuria, hematuria or urinary frequency Musculoskeletal Musculoskeletal: Reports other Details: Left hip pain ; Denies arthralgias, back pain, myalgias or neck pain Integumentary Denies abscess, Abrasions or rash Neurologic Neurologic: Denies headache(s) or weakness Psychiatric Psychiatric: Denies anxiety, depression or suicidal thoughts Endocrine Endocrinology: Denies polydipsia, polyphagia or polyuria Hematologic/Lymphatic Hematologic/Lymphatic: Denies easy bleeding, easy bruising or lymphadenopathy Allergic/Immunologic Allergic/Immunologic ED: Denies mouth swelling, tongue swelling or urticaria EXAM Physical Exam Const Vital Signs: 07/02/24 10:48 Temperature 98.1 F Temperature Source Oral Pulse Rate 92 Respiratory Rate 16 Blood Pressure 149/90 H Blood Pressure Mean 109 Pulse Ox 97 Oxygen Delivery Method Room Air Positive well nourished and well developed General Appearance ED: well developed and NAD HEENT Reports TM's clear and moist mucous membranes normocephalic and atraumatic; Negative for trauma or tenderness Tympanic Membrane ED: Yes TM's clear Eyes PERRL and EOMs intact bilaterally General Eye ED: Negative for pale conjunctiva or scleral icterus Neck no lymphadenopathy, supple and no JVD General: Negative for tenderness Chest Wall inspection of chest normal and palpation of chest normal Chest: Negative for tenderness Resp normal respiratory effort and clear to auscultation bilaterally Effort and Inspection: Negative for respiratory distress or pain with movement Auscultation: Negative for rhonchi, wheezes or diminished lung sounds Cardio regular rate, regular rhythm, S1 normal heart sound, S2 normal heart sound and no murmurs Peripheral Pulses: pulses 2+ throughout GI normal to inspection, nondistended, normoactive bowel sounds, soft to palpation, non-tender, non-distended and no masses Back/Spine no CVA tenderness and no thoracic nor lumbar tenderness Extremity Extremity Narrative: Left lower extremity-patient has some tenderness palpation over the left hip and left thigh. There is no erythema or warmth. There is no ecchymosis or bruising. No obvious deformity. She has no significant straight leg raise pain. Deep tendon reflexes plus 2 out of 4 bilaterally at the patella and Achilles. She has normal L5 extension bilaterally. She has normal sensation to light touch. General Extremety ED: Negative for edema General Extremity: Negative for edema Neuro oriented x3, CN's II-XII intact bilaterally, no sensory deficits noted and gait normal Sensorium / Orientation: awake, alert, oriented to person, oriented to place and oriented to time Motor Exam: strength 5/5 throughout and strength abnormal Psych mental status grossly normal Skin no rashes or lesions noted and no wounds MDM MDM MDM Narrative Medical decision making narrative: Patient presents with essentially atraumatic left hip and leg pain that seems to radiate down the posterior thigh to about the knee. No cauda equina type symptoms or signs. Patient had x-rays of the left hip that were read by myself as no acute fractures or dislocations or lytic lesions. Patient was given 1 Oxy IR in the emergency department. She be started on a Medrol Dosepak and also will be given a few Percocet for pain. 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 Radiography Diagnostic Testing: Three-view x-rays of the left hip and pelvis obtained interpreted by myself as no evidence of fracture or dislocation. Radiology results pending Discharge Plan Triage Chief Complaint: Lower Extremity Injury ED Provider: Sofi Mora Dx/Rx/DC Orders Clinical Impression: Hip pain, left, Sciatica Instructions: ED Pain, Acute, Uncertain Cause, ED Sciatica Prescriptions: New methylprednisolone [Medrol (Matt)] 4 mg tablets,dose pack 4 mg PO DAILY Qty: 21 0RF oxycodone-acetaminophen 5-325 mg tablet 1 tab PO Q6H PRN PRN (Reason: Pain) 3 Days Qty: 12 0RF No Action hydrocortisone acetate [Anusol-HC] 25 mg suppository 25 mg HI TID PRN (Reason: hemorrhoids) Qty: 24 0RF oxycodone 5 mg tablet 5 mg PO multivitamin [Multiple Vitamins] 1 EACH tablet 1 ea PO DAILY cholecalciferol (vitamin D3) [D3-2000] 2,000 UNIT capsule 2,000 unit PO DAILY Fish Oil 1 EACH capsule 1 ea PO DAILY amoxicillin-pot clavulanate 875-125 mg tablet 1 tab PO BID Qty: 20 0RF ondansetron 4 mg tablet,disintegrating 4 mg PO Q8H PRN PRN (Reason: Nausea) Qty: 14 0RF hydrocodone-acetaminophen 5-325 mg tablet 1 tab PO Q6H 3 Days Qty: 12 0RF ondansetron 4 mg tablet,disintegrating 4 mg PO Q8H PRN PRN (Reason: Nausea) Qty: 10 0RF hydrocodone-acetaminophen 5-325 mg tablet 1 tab PO Q6H PRN PRN (Reason: Pain) 3 Days Qty: 10 0RF gabapentin 300 mg capsule 300 mg PO QHS Qty: 30 0RF lorazepam [Ativan] 0.5 mg tablet 0.5 mg PO QHS PRN (Reason: anxiety) Qty: 7 0RF Primary Care Provider: Jillian Canada Referrals: Jillian Canada DO [Primary Care Provider] - Activity Restrictions/Additional Instructions: Follow-up with your paint 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
--- NOTE | 2024-07-02 11:45 | RAD_ITS ---
STUDY: X-RAY - PELVIS AND LEFT HIP REASON FOR EXAM: Female, 83 years old. Left hip pain. TECHNIQUE: 2 views of the pelvis and hip. COMPARISON: Comparison is made with prior study dated June 03, 2023. FINDINGS: There is a non-specific bowel gas pattern. There are multiple calcified phleboliths. There is narrowing with cortical sclerosis and osteophyte formation of the sacroiliac joint consistent with degenerative osteoarthritic changes. Normal bilateral superior and inferior pubic rami. There is narrowing with sclerosis of the pubic symphysis. Normal bilateral ischial tuberosities. Normal visualized femoral head. Normal acetabulum. There is moderate articular joint space narrowing of the hip. Moderate degree of joint space narrowing of the right hip joint. RAD/HIP, UNI W/ Pelvis 2-3 Views IMPRESSION: Degenerative changes. No acute abnormality is seen. Electronically Signed: Az Sharma MD at 13:12 EDT ,
[2024-07-02 12:23] VITALS: BP 140/92; PULSE 77; RESP 18; TEMP 36.6; O2SAT 97
[2024-07-02] MEDS: oxyCODONE 5 MG Tablet PO (12:26)
== END 2024-07-02 12:32 | disposition home or self-care (01) ==
PROVIDERS: Emergency Provider Emergency Medicine; PCP Internal Medicine; Referring Provider Emergency Medicine; Visit Provider Emergency Medicine
DX: M54.32 Sciatica, left side (principal); M25.552 Pain in left hip; Z79.899 Other long term (current) drug therapy
CPT/HCPCS: 73502; 99282

== ENCOUNTER → 2025-08-15 | Outpatient (CLI) | payer MEDICARE, SELFPAY ==
[2025-08-15 09:35] LABS: Mucous, Urine 0 SEEN /hpf (<or=2+); Red Blood Cells-Urine 0 SEEN /hpf (0-5)
[2025-08-15 10:16] LABS: Color, Urine Yellow (Yellow); Glucose, Dipstick Normal (Normal); Ketone-Dipstick Negative (Negative); Leukocyte Esterase-Dipstick 500 /ul (Negative); Nitrite-Dipstick Negative (Negative); Occult Blood-Urine 10 /ul (Negative); Protein-Dipstick 30 mg/dl (Negative); Specific Gravity, Urine 1.020 (1.002-1.030); Urine Bilirubin Dipstick Negative (Negative)
[2025-08-15 10:23] LABS: Squamous Epithelial Cells - UA 0-5 SEEN /hpf (5-10)
[2025-08-15 11:34] LABS: Creatinine, Urine (random) 179.00 mg/dL (28.00-217.00); Microalbumin,Random Urine 63.6 mg/L (<20 mg/L)
== END | disposition home or self-care (01) ==
LOC: LABSPEC 09:44
PROVIDERS: PCP Internal Medicine; Referring Provider Internal Medicine; Visit Provider Internal Medicine
DX: E03.9 Hypothyroidism, unspecified (principal); E11.9 Type 2 diabetes mellitus without complications; E55.9 Vitamin D deficiency, unspecified; R03.0 Elevated blood-pressure reading, without diagnosis of hypertension
CPT/HCPCS: 81001; 82043; 82570